=== PATIENT | female | born 1965 | race Caucasian/White ===

== ENCOUNTER 2021-06-21 07:10 | Emergency (ER) | payer OTHER, SELFPAY ==
[2021-06-21 07:19] VITALS: BP 153/102; PULSE 96; RESP 17; TEMP 38.2; O2SAT 98; BMI 31.9
--- NOTE | 2021-06-21 07:28 | CT_ITS ---
FINAL REPORT CLINICAL HISTORY: r/o kidney stone left flank pain FINDINGS: Axial CT images of the abdomen and pelvis were obtained without intravenous contrast. Coronal reformatted images were also obtained.This study was performed with techniques to keep radiation doses as low as reasonably achievable (ALARA). Individualized dose reduction techniques using automated exposure control or adjustment of mA and/or kV according to the patient's size were employed. Abdomen: The lung bases are clear. There is fatty infiltration of the liver. There are multiple bilateral nonobstructing renal stones. The largest on the left measures 8 mm. There is no right hydronephrosis. There is mild left hydronephrosis secondary to a 10 mm left UPJ stone. There is a 30 mm low-attenuation mass in the lateral left kidney which cannot be accurately characterized without contrast. Remaining solid organs are unremarkable. Pelvis: There multiple phleboliths in the abdomen and pelvis. The appendix is normal. There is no free fluid or adenopathy. IMPRESSION: Left hydronephrosis secondary to a 10 mm left UPJ stone. Multiple bilateral nonobstructing renal stones. 30 mm low-attenuation mass in the lateral left kidney. Renal mass protocol CT or MRI may be beneficial for further evaluation. Fatty liver. Reviewed, Interpreted and Dictated by Heath Noguera III, MD Transcribed by Christie Samuel Authenticated by Heath Noguera III, MD on 06/21/2021 08:10:41 AM [facility]
[2021-06-21 07:36] LABS: Microscopic, Urine URINE MICROSCOPIC (MICROSCOPIC)
[2021-06-21 07:40] LABS: Basophils # 0.1 K/mm3 (0-0.2); Basophils % 1.4 % (0.1-2.0); Eosinophils # 0.1 K/mm3 (0.0-0.4); Eosinophils % 0.9 % (0.1-12.0); Hematocrit 41.4 % (37.0-47.0); Hemoglobin 13.5 g/dL (12.2-16.2); Lymphocytes % 10.6 % (10-50); Mean Corpuscular HGB Conc 32.7 g/dL (31.8-35.4); Mean Corpuscular Hemoglobin 29.6 pg (27.0-31.2); Mean Corpuscular Volume 90.5 fl (81-99); Mean Platelet Volume 7.7 fl (7.4-10.4); Monocytes # 0.6 K/mm3 (0.1-1.0); Monocytes % 5.9 % (1.7-9.3); Neutrophils # 7.8 K/mm3 (1.8-7.8); Neutrophils % 81.1 % (37.0-80.0); Platelet Count 475 K/mm3 (142-424); Red Blood Count 4.58 M/mm3 (4.20-5.40); Red Cell Distribution Width 13.2 % (11.5-17.5); White Blood Count 9.6 K/mm3 (4.8-10.8)
--- NOTE | 2021-06-21 07:41 | PC.NURSE ---
patient to radiology with security tech by wheelchair
[2021-06-21 07:44] LABS: Appearance,Urine CLEAR (Clear); Bilirubin,Urine Negative (Negative); Blood, Urine 2+ (Negative); Color,Urine YELLOW (Yellow); Glucose,Urine (UA) Negative (Negative); Ketones,Urine Negative (Negative); Leukocyte Esterase,Urine 2+ (Negative); Nitrate,Urine Negative (Negative); PH,Urine 5.5 (5.0-8.5); Protein,Urine 2+ (Negative); Specific Gravity, Urine 1.025 (1.005-1.030); Urobilinogen,Urine 0.2 EU/dl (0.2)
[2021-06-21 07:50] LABS: Chloride 103 mmol/L (98-107); Potassium 4.1 mmoL/L (3.5-5.1); Sodium 135 mmol/L (136-145)
[2021-06-21 07:52] LABS: Alanine Aminotransferase 38 U/L (12-78); Alkaline Phosphatase 95 U/L (38-126); Aspartate Amino Transferase 31 U/L (14-36); Bilirubin,Total 0.6 mg/dl (0.2-1.3); Blood Urea Nitrogen 15 mg/dl (7-17); Creatinine Clearance Estimated 82 mL/min (50-200); Estimated Glomerular Filt Rate 52 ml/min (>60); GFR (African American) 62 ML/MIN (>60); Lipase 94 U/L (23-300)
[2021-06-21 07:53] LABS: Albumin/Globulin Ratio 1.1 (1.1-1.8); Anion Gap 10.1 mEq/L (5-15); Calcium 8.6 mg/dl (8.4-10.2); Carbon Dioxide 26 mmol/L (22.0-30.0); Globulin 3.5 g/dL (1.3-3.2); Glucose 147 mg/dl (74-100); Total Protein,Serum 7.5 g/dl (6.3-8.2)
[2021-06-21 07:57] LABS: Bacteria,Urine 1+ /lpf
--- NOTE | 2021-06-21 08:00 | HMH.EDGENADL ---
ED Disposition Clinical Impression: Left ureteral calculus, Pyelonephritis, Left renal mass Disposition: Xfer Other Condition on Discharge: Fair Referrals: Provider,Referral, [Primary Care Provider] - Forms: Transfer Record - ED - Critical Care Critical Care Time: No Attestation: On , the high probability of a clinically significant, sudden or life threatening deterioration of the following system(s) required my full and direct attention, intervention and personal management. The time I documented below is in addition to time spent performing reported procedures but includes the following listed in this critical care notation. Medical Decision Making - Jc Inquiry Pt receiving controlled substance: Yes Jc was queried for this patient: Yes Risks and benefits of using a controlled substance: were not discussed with pt by me Vital Signs: 06/21/21 07:19 06/21/21 11:07 Temperature 100.7 F H 100.4 F H Temperature Source Oral Oral Pulse Rate 84 Pulse Rate [Left Radial] 96 H Respiratory Rate 17 17 Blood Pressure 146/80 H Blood Pressure [Right Arm] 153/102 H Blood Pressure Mean [Right Arm] 119 02 Sat by Pulse Oximetry 98 Oxygen Delivery Method Room Air Room Air - Lab Data Lab Results 06/21/21 07:22: WBC 9.6, RBC 4.58, Hgb 13.5, Hct 41.4, MCV 90.5, MCH 29.6, MCHC 32.7, RDW 13.2, Plt Count 475 H, MPV 7.7, Neut % (Auto) 81.1 H, Lymph % (Auto) 10.6, Garrett % (Auto) 5.9, Eos % (Auto) 0.9, Baso % (Auto) 1.4, Neut # (Auto) 7.8, Lymph # (Auto) 1.0, Garrett # (Auto) 0.6, Eos # (Auto) 0.1, Baso # (Auto) 0.1 06/21/21 07:22: Sodium 135 L, Potassium 4.1, Chloride 103, Carbon Dioxide 26, Anion Gap 10.1, BUN 15, Creatinine 1.10 H, Estimated Creat Clear 82, Estimated GFR 52 L, Est GFR ( Amer) 62, Glucose 147 H, Calcium 8.6, Total Bilirubin 0.6, AST 31, ALT 38, Alkaline Phosphatase 95, Total Protein 7.5, Albumin 4.0, Globulin 3.5 H, Albumin/Globulin Ratio 1.1, Lipase 94 06/21/21 07:35: Urine Color Yellow, Urine Appearance Clear, Urine pH 5.5, Ur Specific Errol 1.025, Urine Protein 2+, Urine Glucose (UA) Negative, Urine Ketones Negative, Urine Blood 2+, Urine Nitrate Negative, Urine Bilirubin Negative, Urine Urobilinogen 0.2, Ur Leukocyte Esterase 2+ A, Urine RBC 5-10, Urine WBC 5-10, Ur Squamous Epith Cells 3-5, Urine Bacteria 1+ 06/21/21 08:19: Lactate 0.9 06/21/21 09:01: SARS-CoV-2 (PCR) Not detected, Influenza A Untype (PCR) Not detected, Influenza Type B (PCR) Not detected Result diagrams: 06/21/21 07:22 06/21/21 07:22 Orders (Tests/Meds): ED MEDICATIONS Discontinued Medications Generic Name Dose Route Start Last Admin Trade Name Freq PRN Reason Stop Dose Admin Lactated Ringer's 1,000 mls @ 999 mls/hr 06/21/21 07:30 06/21/21 07:34 Lactated Ringer's 1000 Ml Bag IV 06/21/21 08:30 999 mls/hr .Q1H1M WALTER Administration Ceftriaxone Sodium 1 gm/ 50 mls @ 100 mls/hr 06/21/21 08:15 06/21/21 08:22 Sodium Chloride IV 07/05/21 08:14 100 mls/hr Q24H WALTER Administration Ketorolac Tromethamine 30 mg 06/21/21 08:25 06/21/21 08:40 Ketorolac 30mg/Ml Vial IV 06/21/21 08:26 30 mg ONCE ONE Administration Morphine Sulfate 4 mg 06/21/21 08:25 06/21/21 08:40 Morphine 4mg/Ml Syringe IV 06/21/21 08:26 4 mg ONCE ONE Administration Ondansetron HCl 4 mg 06/21/21 07:28 06/21/21 07:34 Ondansetron 4mg/2ml Vial IV 06/21/21 07:29 4 mg ONCE ONE Administration Sodium Chloride 10 ml 06/21/21 07:28 Sodium Chloride 0.9% 10ml Flush Syringe IV 07/21/21 07:27 NEEDED PRN Maintain IV Site ORDERS Category Date Time Status Blood Culture Stat Micro 06/21/21 08:19 Received Urine Culture Stat Micro 06/21/21 07:35 Received - CT Data CT Scan: Abdomen, Pelvis Time Received: 08:[address] Reviewed: Yes: I have viewed the radiologist's interpretation Findings Narrative: Procedure(s): CT abdomen pelvis wo con Accession Number(s): [id number] cc: Ga
--- NOTE | 2021-06-21 08:05 | PC.NURSE ---
JOANA GALICIA at
--- NOTE | 2021-06-21 08:19 | PC.NURSE ---
Contacting Dr. Rosa for ED MD
--- NOTE | 2021-06-21 08:32 | PC.NURSE ---
Contacted [facility] for ED MD; awaiting call back
[2021-06-21 08:47] LABS: Lactic Acid 0.9 mmol/L (0.7-2.1)
--- NOTE | 2021-06-21 08:48 | PC.NURSE ---
Katelyn with [facility] called back and states that Dr. Heath Stern is on for Urology today and to have ED MD call his line directly.
[2021-06-21 09:05] LABS: Coronavirus 19, PCR Not Detected (NotDetected); Influenza A, PCR Not Detected (NotDetected); Influenza B, PCR Not Detected (NotDetected)
--- NOTE | 2021-06-21 09:24 | PC.NURSE ---
Contacted Dr. Stern's office with [facility] urology @ [phone] and they took a message for Dr. Stern to call us back. Dr. Augustine updated
--- NOTE | 2021-06-21 09:52 | PC.NURSE ---
JOANA GALICIA speaking with Dr. Heath Stern (urology) from [facility]
--- NOTE | 2021-06-21 09:56 | PC.NURSE ---
Contacted [facility] and spoke with Katelyn, letting her know we need a hospitalist to admit patient to [facility]
--- NOTE | 2021-06-21 10:05 | PC.NURSE ---
Dr. Augustine speaking with Dr. Serrano, hospitalists at [place]
--- NOTE | 2021-06-21 10:08 | PC.NURSE ---
pt accepted to per dr. zhao, access center requested a face sheet be faxed and states they will work on bed placement for pt.
--- NOTE | 2021-06-21 10:25 | PC.NURSE ---
Faxed facesheet over to [facility]
--- NOTE | 2021-06-21 10:43 | PC.NURSE ---
[facility] called with bed assignment for pt. Pt is going to outpt surgery at [facility] main number for report [phone]
[2021-06-21 11:07] VITALS: BP 146/80; PULSE 84; RESP 17; TEMP 38; O2SAT 97
== END 2021-06-21 11:10 | disposition other institution (70) ==
PROVIDERS: Emergency Medicine; Emergency Provider Emergency Medicine
DX: N20.1 Calculus of ureter (principal); N28.89 Other specified disorders of kidney and ureter
CPT/HCPCS: 74176; 80053; 81001; 83605; 83690; 85025; 87040; 87086; 96365; 96375; 99284; C9803; J0696; J2405; U0003; U0005

== ENCOUNTER 2021-09-09 07:31 | Emergency (ER) | payer OTHER, SELFPAY ==
[2021-09-09 07:34] VITALS: BP 155/95; PULSE 65; RESP 18; TEMP 36.8; O2SAT 97; BMI 32.3
--- NOTE | 2021-09-09 08:06 | HMH.EDSKAF ---
ED Disposition Clinical Impression: Cellulitis Qualifiers: Site of cellulitis: face Qualified Code(s): L03.211 - Cellulitis of face Disposition: Home, Self-Care Condition on Discharge: Good Instructions: Cellulitis Additional Instructions: take antibiotic as prescribed. If no improvement in 48 hours, follow up in the ED or with your primary physician. Referrals: Provider,Referral, [Primary Care Provider] - - Critical Care Critical Care Time: No Attestation: On 09/09/21, the high probability of a clinically significant, sudden or life threatening deterioration of the following system(s) required my full and direct attention, intervention and personal management. The time I documented below is in addition to time spent performing reported procedures but includes the following listed in this critical care notation. Medical Decision Making - Medical Records Medical records reviewed: Yes: I reviewed the patient's medical records. - Jc Inquiry Pt receiving controlled substance: No Vital Signs: 09/09/21 07:34 Temperature 98.2 F Temperature Source Oral Pulse Rate [Right Radial] 65 Respiratory Rate 18 Blood Pressure [Right Arm] 155/95 H Blood Pressure Mean [Right Arm] 115 Blood Pressure Source [Right Arm] Automatic Cuff Blood Pressure Position [Right Arm] Sitting 02 Sat by Pulse Oximetry 97 Oxygen Delivery Method Room Air Skin/Abscess/FB HPI - General Chief complaint: Skin/Abscess/Foreign Body Stated complaint: HUGE SPOT ON LEFT SIDE OF CHEEK-PAINFUL AND HARD Time Seen by Provider: 09/09/21 08:12 Mode of Arrival: Ambulatory Limitations: No Limitations Description of Symptoms (Recalled from ER Triage Doc. by RN): PT stated that as of last saturday she woke up with this red spot on her face. She stated that yesterday she started to feel a shooting pain from the spot located on her left cheek. It travels from the spot down her jaw, and up to her head. She was seen by her holistic doctor and was using purifying oils, and drawing sap. This has not helped her at all. - History of Present Illness HPI narrative: 56 yo/F, no signifcant related PMH, presents with erythematous, indurated lesion left face for ~1week. No fever, chills, N/V or other systemic symptoms. States saw her naturopathic doctor, has used various oils and topical treamtents with no improvement. Does report pain left face radiating down to jaw with pain with chewing. - Related Data Previous Rx's Medication Instructions Recorded cephALEXin [Cephalexin 500mg Tab] 500 mg PO Q6H 7 Days #28 tab 09/09/21 Allergies Allergy/AdvReac Type Severity Reaction Status Date / Time No Known Allergies Allergy Verified 06/21/21 07:27 [facility] History - Hepatitis A Screen Attestation statement:: This patient has been screened for Hepatitis A risk factors. ROS Obtained: Yes All systems reviewed & no additional complaints - Constitutional Constitutional: Reports system reviewed and no additional complaints, except as docu - Eyes Eyes: Reports system reviewed and no additional complaints, except as docu - ENT Ears, Nose, Mouth, and Throat: Denies difficulty swallowing, Denies vertigo/dizziness Comments: left facial pain, worse with chewing - Cardiovascular Cardiovascular: Reports system reviewed and no additional complaints, except as docu - Respiratory Respiratory: Reports system reviewed and no additional complaints, except as docu - Musculoskeletal Musculoskeletal: Reports system reviewed and no additional complaints, except as docu - Integumentary/Breasts Comments: lesion, left face Physical Exam - General General appearance: alert, in no apparent distress - Head Head exam: atraumatic, normocephalic, normal inspection - Eye Eye exam: Present: normal appearance, PERRL, EOMI - ENT ENT exam: Present: normal exam, normal oropharynx, mucous membranes moist, TM's normal bilaterally, normal certified medical biller
--- NOTE | 2021-09-09 08:08 | PC.NURSE ---
JOANA GALICIA at speaking with patient
[2021-09-09 08:27] VITALS: BP 155/95; PULSE 65; RESP 18; TEMP 36.8; O2SAT 97
== END 2021-09-09 08:27 | disposition home or self-care (01) ==
PROVIDERS: Emergency Provider Emergency Medicine
DX: L03.211 Cellulitis of face (principal); G50.1 Atypical facial pain; L53.9 Erythematous condition, unspecified; L98.8 Other specified disorders of the skin and subcutaneous tissue; R68.84 Jaw pain
CPT/HCPCS: 99282

== ENCOUNTER 2022-01-01 11:13 | Emergency (ER) | payer OTHER, SELFPAY ==
--- NOTE | 2022-01-01 12:13 | EXP.UTC ---
Discharge Plan Disposition Patient Disposition: Home, Self-Care Condition: Good Prescriptions Prescriptions: New cefdinir 300 mg capsule 300 mg PO BID 10 Days Qty: 20 0RF Discontinued cephalexin 500 MG tablet 500 mg PO Q6H 7 Days Qty: 28 0RF Referrals Follow up/Referrals: Alex Caruso MD [Primary Care Provider] - See instructions Arden Moss MD [Staff Physician] - See instructions (renal mass incidental/ pyelonephritis) Clinical Impressions Clinical Impression: Pyelonephritis Instructions Patient Instructions: DI for Urinary Tract Infection (UTI) Discharge ED Provider: Andrew Jacinto [facility] General Chief complaint: Urogenital-Female Stated complaint: right side and back pain Time Seen by Provider: 01/01/22 12:13 History of Present Illness Provider Complaint: Assumed care from the urgent treatment center for a lady with left flank pain with a history of renal lithiasis. States that she has been hurting off and on but mildly over the left flank and left lower back for approximately 1 week significantly worsened yesterday consistent with her previous renal stones. States that pain is currently 5 out of 10 she has had urinary frequency and denies fevers chills or body aches no nausea or vomiting. Related Data Previous Rx's Medication Instructions Recorded cefdinir 300 mg capsule 300 mg PO BID 10 days #20 caps 01/01/22 Allergies Allergy/AdvReac Type Severity Reaction Status Date / Time No Known Allergies Allergy Verified 06/21/21 07:27 [facility] Medical History No significant past medical history Family History Other No significant family history Social History Smoking Status: Never smoker alcohol intake: never current occupational status: employed Travel in the last 8 weeks: None ROS Obtained: Yes Systems reviewed as appropriate & no additional complaints except as documented Physical Exam General General appearance: alert and in no apparent distress Head Head exam: atraumatic and normocephalic ENT ENT exam: Present mucous membranes moist Respiratory Respiratory exam: Absent respiratory distress Cardiovascular Cardiovascular exam: Present regular rate Abdominal Exam Abdominal exam: Present soft; Absent distention or tenderness Neurological Exam Neurological exam: Present alert and oriented X3 Medical Decision Making Medical Records Medical records reviewed: Yes I reviewed the patient's medical records. Jc Inquiry Pt receiving controlled substance: No Lab Data Lab results reviewed: Yes I reviewed the patient's lab results. Result diagrams: 01/01/22 12:50 01/01/22 12:[address] Scan: Abdomen Time Received: 14:[address] Reviewed: Yes I have viewed the radiologist's interpretation Preliminary Findings: Normal/NAD Findings Narrative: No urinary obstruction/ likely renal cysts. US Data ED US Reviewed: Yes I have viewed radiologist's interpretation Medical Decision Narrative: 36-year-old female was initially evaluated in the urgent treatment center sent over for flank pain consistent with her previous renal stones. Gradually worsening pain over several days she is having urinary frequency but otherwise is well-appearing and nontoxic. CT scan without contrast demonstrates no evidence of obstructive uropathy with stones only intrarenal. Urinalysis is positive for urinary tract infection will treat for pyelonephritis with cefdinir and discharged in good condition.
[2022-01-01 12:15] VITALS: BP 182/105; PULSE 64; RESP 20; TEMP 37.1; O2SAT 98; BMI 33.4
[2022-01-01 12:38] VITALS: BP 164/88; PULSE 78; RESP 18; TEMP 36.6; O2SAT 99; BMI 33.4
--- NOTE | 2022-01-01 12:38 | PC.NURSE ---
PATIENT SENT TO ER PER Leah PINO APRN FOR FURTHER EVALUATION. REPORT GIVEN TO Jess MERCHANT RN
--- NOTE | 2022-01-01 12:40 | CT_ITS ---
FINAL REPORT CLINICAL HISTORY: flank pain COMPARISON: 06/21/2021 FINDINGS: Axial CT images of the abdomen and pelvis were obtained without intravenous contrast. Coronal reformatted images were also obtained.This study was performed with techniques to keep radiation doses as low as reasonably achievable (ALARA). Individualized dose reduction techniques using automated exposure control or adjustment of mA and/or kV according to the patient's size were employed. Abdomen: The lung bases are clear. There are several bilateral nonobstructing renal stones with the largest in the lower pole of the left kidney measuring about 5 mm. There is no significant hydronephrosis. There are two stable low-attenuation masses in the left kidney including a 31 mm and a mass inferior to this measuring about 24 mm. They cannot be accurately characterized without contrast but could represent cysts. The liver is fatty infiltrated. The spleen and pancreas have an unremarkable, unenhanced appearance. Pelvis: The appendix is normal. There are multiple phleboliths in the pelvis. There is a moderate amount of retained stool. There is no evidence of ureteral dilation or ureteral stone. IMPRESSION: Several bilateral nonobstructing renal stones. No ureteral stone identified. Stable left renal masses. Reviewed, Interpreted and Dictated by Heath Noguera III, MD Transcribed by Jayashree De Dios Authenticated and [facility]
[2022-01-01 12:41] LABS: Apearance,Urine Cloudy (Clear); Blood, Urine Trace (Negative); Color,Urine Dark Yellow (Yellow); Glucose,Urine (UA) Negative (Negative); Ketones,Urine Negative (Negative); PH,Urine 5.5 (5.0-8.5); Protein,Urine Negative (Negative); Specific Gravity, Urine >= 1.030 (1.005-1.030)
[2022-01-01 12:42] LABS: Bilirubin,Urine Negative (Negative); UTC Leukocyte Esterase,Urine 1+ (Negative); UTC Nitrate,Urine Negative (Negative); Urobilinogen,Urine 0.2 EU/dl (0.2)
[2022-01-01 13:00] VITALS: BP 169/96; PULSE 60; O2SAT 97
[2022-01-01 13:00] LABS: Basophils # 0.1 K/mm3 (0-0.2); Basophils % 2.1 % (0.1-2.0); Eosinophils # 0.2 K/mm3 (0.0-0.4); Hematocrit 46.8 % (37.0-47.0); Hemoglobin 15.5 g/dL (12.2-16.2); Lymphocytes # 2.4 K/mm3 (0.7-4.5); Lymphocytes % 37.7 % (10-50); Mean Corpuscular HGB Conc 33.2 g/dL (31.8-35.4); Mean Corpuscular Hemoglobin 29.8 pg (27.0-31.2); Mean Corpuscular Volume 89.8 fl (81-99); Mean Platelet Volume 7.2 fl (7.4-10.4); Monocytes # 0.3 K/mm3 (0.1-1.0); Monocytes % 4.1 % (1.7-9.3); Neutrophils # 3.4 K/mm3 (1.8-7.8); Neutrophils % 53.1 % (37.0-80.0); Platelet Count 332 K/mm3 (142-424); Red Blood Count 5.21 M/mm3 (4.20-5.40); Red Cell Distribution Width 13.3 % (11.5-17.5); White Blood Count 6.5 K/mm3 (4.8-10.8)
[2022-01-01 13:06] LABS: Alanine Aminotransferase 65 U/L (12-78); Albumin Level 4.4 g/dl (3.5-5.0); Albumin/Globulin Ratio 1.5 (1.1-1.8); Alkaline Phosphatase 119 U/L (38-126); Anion Gap 15.3 mEq/L (5-15); Aspartate Amino Transferase 44 U/L (14-36); Bilirubin,Total 0.3 mg/dl (0.2-1.3); Blood Urea Nitrogen 23 mg/dl (7-17); Calcium 9.5 mg/dl (8.4-10.2); Carbon Dioxide 26 mmol/L (22.0-30.0); Chloride 104 mmol/L (98-107); Creatinine Clearance Estimated 135 mL/min (50-200); Estimated Glomerular Filt Rate 87 ml/min (>60); GFR (African American) 105 ML/MIN (>60); Globulin 2.9 g/dL (1.3-3.2); Glucose 115 mg/dl (74-100); Lipase 199 U/L (23-300); Potassium 4.3 mmoL/L (3.5-5.1); Sodium 141 mmol/L (136-145); Total Protein,Serum 7.3 g/dl (6.3-8.2)
[2022-01-01 13:22] LABS: Microscopic, Urine URINE MICROSCOPIC (MICROSCOPIC)
[2022-01-01 13:28] LABS: Appearance,Urine CLEAR (Clear); Bilirubin,Urine Negative (Negative); Blood, Urine Negative (Negative); Color,Urine YELLOW (Yellow); Glucose,Urine (UA) Negative (Negative); Ketones,Urine Negative (Negative); Leukocyte Esterase,Urine TRACE (Negative); Nitrate,Urine Negative (Negative); Protein,Urine Negative (Negative); Specific Gravity, Urine >= 1.030 (1.005-1.030); Urobilinogen,Urine 0.2 EU/dl (0.2)
--- NOTE | 2022-01-01 13:29 | PC.NURSE ---
ED MD AT BEDSIDE FOR EVALUATION
[2022-01-01 13:38] LABS: Urine Pregnancy, HCG Qual. Negative (Negative)
[2022-01-01 13:40] LABS: Bacteria,Urine Trace /lpf; Squamous Epithelial Cell,Urine Occasional #/hpf (0-5)
--- NOTE | 2022-01-01 14:34 | PC.NURSE ---
MD AT BEDSIDE TO UPDATE PT ON POC
[2022-01-01 15:00] VITALS: BP 165/90; PULSE 68; RESP 17; TEMP 36.7; O2SAT 98
== END 2022-01-01 15:00 | disposition home or self-care (01) ==
LOC: UTC 11:19 → ER 12:36
PROVIDERS: Nurse Practitioner Family; Emergency Provider Student in an Organized Health Care Education/Training Program; PCP Emergency Medicine
DX: N12 Tubulo-interstitial nephritis, not specified as acute or chronic (principal); M54.50 Low back pain, unspecified; Z79.899 Other long term (current) drug therapy
CPT/HCPCS: 74176; 80053; 81001; 81003; 81025; 83690; 85025; 87086; 87088; 87186; 96374; 99285

== ENCOUNTER → 2022-05-15 23:35 | Outpatient (CLI) | payer OTHER, SELFPAY | PROVIDERS: PCP Emergency Medicine; Visit Provider Nurse Practitioner Family | DX: B35.1 Tinea unguium (principal); L57.0 Actinic keratosis; L60.0 Ingrowing nail | CPT/HCPCS: 87102; 87206; 87220 ==

== ENCOUNTER → 2022-06-14 14:08 | Outpatient (CLI) | payer OTHER, SELFPAY ==
--- NOTE | 2022-06-14 14:09 | US_ITS ---
FINAL REPORT CLINICAL HISTORY: decreased sensation, previous smoker, bilateral weak pulses, evaluation prior to ingrown toenail removal. FINDINGS: ANKLE-BRACHIAL PRESSURE INDICES Pressure indices are as follows: RIGHT LOWER EXTREMITY: Ankle-brachial pressure index: 1.1 Comments: Normal LEFT LOWER EXTREMITY: Ankle-brachial pressure index: 1.1 Comments: Normal CONCLUSION: No evidence of significant obstructive peripheral vascular disease of the lower extremities Reviewed, Interpreted and Dictated by Heath Noguera III, MD Transcribed by Jayashree De Dios Authenticated and [facility] [place] [place]
== END ==
PROVIDERS: PCP Emergency Medicine; Visit Provider Nurse Practitioner Family
DX: R09.89 Other specified symptoms and signs involving the circulatory and respiratory systems (principal)
CPT/HCPCS: 93923

== ENCOUNTER → 2022-09-18 11:52 | Outpatient (CLI) | payer OTHER, SELFPAY ==
--- NOTE | 2022-09-18 11:52 | US_ITS ---
PROCEDURE: US TRANSVAGINAL CLINICAL INDICATION: post menopausal bleeding COMPARISON: No exams were available for comparison FINDINGS: Transvaginal sonographic images of the pelvis were obtained. UTERUS: 11cm x 8cmx 6cm with a combined endometrial thickness of 18.8mm. At the fundus of the uterus the endometrium is grossly thickened up to 26 millimeters. The uterus is enlarged. A Caesarean section scar is visualized. There are several small nabothian cysts in the cervix. LEFT OVARY: 6ryg5grq5.2cm with a volume of 1.8ml.Appears atrophic. RIGHT OVARY: 2cmx [id number] with a volume of 0.9ml. Appears atrophic. Both ovaries are seen and appear normal. Doppler flow to both ovaries are seen. There is no fluid in the cul-de-sac. IMPRESSION: 1. Bulky anteverted uterus. 2. The endometrium is markedly thickened. The endometrium is 18.8 mm but is seen up to 26 mm deep at the fundus. Suggest endometrial sampling. 3. Both ovaries are seen and appear atrophic. Dictated by: Jorge Alberto Burr MD 09/18/2022 18:40 Jorge Alberto Burr MD in OV 09/18/2022 18:40
== END ==
PROVIDERS: PCP Emergency Medicine; Visit Provider Obstetrics & Gynecology
DX: N95.0 Postmenopausal bleeding (principal)
CPT/HCPCS: 76830

== ENCOUNTER → 2022-11-12 09:51 | Outpatient (CLI) | payer OTHER, SELFPAY ==
[2022-11-12 10:24] LABS: Basophils # 0.1 K/mm3 (0-0.2); Basophils % 0.9 % (0.1-2.0); Eosinophils # 0.2 K/mm3 (0.0-0.4); Eosinophils % 1.7 % (0.1-12.0); Hematocrit 52.7 % (37.0-47.0); Lymphocytes % 32.2 % (10-50); Mean Corpuscular HGB Conc 32.3 g/dL (31.8-35.4); Mean Corpuscular Hemoglobin 29.4 pg (27.0-31.2); Mean Corpuscular Volume 90.9 fl (81-99); Mean Platelet Volume 7.7 fl (7.4-10.4); Monocytes # 0.7 K/mm3 (0.1-1.0); Neutrophils # 5.5 K/mm3 (1.8-7.8); Neutrophils % 58.2 % (37.0-80.0); Platelet Count 441 K/mm3 (142-424); Red Cell Distribution Width 13.1 % (11.5-17.5); White Blood Count 9.4 K/mm3 (4.8-10.8)
[2022-11-12 10:45] LABS: Alanine Aminotransferase 31 U/L (12-78); Albumin Level 4.9 g/dl (3.5-5.0); Albumin/Globulin Ratio 1.4 (1.1-1.8); Alkaline Phosphatase 98 U/L (38-126); Anion Gap 19.1 mEq/L (5-15); Aspartate Amino Transferase 28 U/L (14-36); Bilirubin,Total 0.6 mg/dl (0.2-1.3); Blood Urea Nitrogen 21 mg/dl (7-17); Calcium 9.8 mg/dl (8.4-10.2); Carbon Dioxide 21 mmol/L (22.0-30.0); Chloride 103 mmol/L (98-107); Estimated Glomerular Filt Rate 51 ml/min (>60); GFR (African American) 62 ML/MIN (>60); Globulin 3.4 g/dL (1.3-3.2); Glucose 124 mg/dl (74-100); Potassium 4.1 mmoL/L (3.5-5.1); Sodium 139 mmol/L (136-145); Total Protein,Serum 8.3 g/dl (6.3-8.2)
[2022-11-12 11:04] LABS: HCG,Quantitative < 2 mIU/ml (0-5.42)
== END ==
PROVIDERS: PCP Emergency Medicine; Visit Provider Obstetrics & Gynecology
DX: R93.89 Abnormal findings on diagnostic imaging of other specified body structures (principal); Z01.812 Encounter for preprocedural laboratory examination
CPT/HCPCS: 36415; 80053; 84702; 85025

== ENCOUNTER 2022-11-20 06:02 | Day surgery (SDC) | payer OTHER, SELFPAY ==
[2022-11-16 11:41] VITALS: BMI 31.8
[2022-11-20] VITALS (11 sets, daily range): BP systolic 104–136; BP diastolic 53–92; PULSE 68–88; RESP 12–83; TEMP 36.1–43; O2SAT 94–99
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
--- NOTE | 2022-11-20 08:55 | EXP.OP.NOTE ---
Date of procedure: 11/20/22 Pre-op Diagnosis:: 1. Post menopausal bleeding 2. Thickened endometrium Post-op Diagnosis:: 1. Post menopausal bleeding 2. Thickened endometrium Procedure performed:: Hysteroscopy, dilation and curettage with Myosure Surgeon:: Alena Jaramillo DO Solder Sprayer(s):: N/a MECHANICAL APPLICATIONS ENGINEER:: Charley Caba Anesthesia: GETA Estimated blood loss (mL): 5 Clinical Note:: Ms Venecia Caruso is a very pleasant 57 yo female who presents to [facility] for scheduled procedure. She reports postmenopausal bleeding. Last period was 2 years ago. She was taking HRT for vasomotor symptoms and mood changes. Howver, she stopped HRT secondary to postmenopausal bleeding. Around 09/11 she started bleeding heavy, like a period. Bleeding lasted about 1 week. Pelvic ultrasound 09/18/22 demonstrated bulky anteverted uterus, endometrium markedly thickened - 18.8 mm but is seen up to 26 mm deep at the fundus. Both ovaries are seen and appear atrophic. Operative findings:: 1. On bimanual exam, uterus normal size and shape, midline, anteverted. No adnexal masses palpated 2. On hysteroscopic exam, large mass within the uterine cavity noted. Bilateral tubal ostia easily visualized around the mass. Remainder of endometrium appeared normal, atrophic Operative note:: Risks, benefits and alternatives were discussed with the patient. Risks include but are not limited to bleeding, infection, uterine perforation and VTE. Patient voiced understanding and agreed to proceed. She was wheeled back to the operating room and placed under MAC without difficulty. She was placed in dorsal lithotomy position and prepped and draped in the normal sterile fashion. Straight catheter was used to drain the bladder. A bimanual exam was performed. A weighted Auvard was placed in the vaginal vault. Single tooth tenaculum was placed on anterior lip of the cervix. Uterus sounded to 9. Sequential Magdaleno dilators were used to dilate the cervical os. Hysteroscope was tested inserted through the cervix without difficulty. Endometrial cavity was evaluated. See findings above. Pictures were taken. Myosure was inserted through the Hysteroscope. Myosure curettage was performed under direct visualization per protoco to remove endometrial mass. The endometrial cavity was curetted with a systematic [id number] movement of the curette so that all possible endometrium was sampled. Endometrial curettings will be sent to pathology for review.?In addition, a medium size sharp curette was inserted through the cervix into the uterine cavity and endometrium was curetted with a systematic back and forth movement in a 360 degree manner. All endometrial curettings will be sent to pathology for review. Instruments were removed from the vagina. Tenaculum site was noted to to be hemostatic. Patient was awaken from anesthesia without difficulty. She was transported to recovery room in stable condition. Patient will be discharged home when awake and ambulating. She was given postop instructions as well as instructions to follow-up in the office in 2 weeks at which time pathology will be reviewed. Condition: stable Disposition: same day Specimens:: 1. Endometrial mass 2. Endometrial curettings Complications:: None
--- NOTE | 2022-11-20 08:59 | EXP.ANES.I ---
[facility] Anesthesia Record Part I Anesthesia Record I Intake, IV Amount: 900 Hydration: Adequate Estimated blood loss (mL): 5 Urine output (mL): 0 Blood Pressure: 124/77 SaO2: 94 Pulse Rate: 72 Airway Patency: Patent Respiratory Rate: 12 Temperature: 98.5 F Patient is:: Drowsy and Oral/Nasal airway Stable to PACU at:: 08:55
--- NOTE | 2022-11-20 10:50 | EXP.ANES.II ---
[facility] Anesthesia Record Part II Anesthesia Record Part II Discharge Time: 09:25 Destination: Surgical Day Care (OP Surgery) PACU nurse assessment reviewed?: Yes Patient Condition:: Good Anesthesia Complications:: None Swallowing reflex intact?: Yes Airway Patency: Patent Cyanosis?: No Blood Pressure: 108/62 SaO2: 98 Respiratory Rate: 13 Pulse Rate: 88 Temperature: 97 F Mental Status: Alert & Oriented Pain level:: 0 Nausea and/or vomitting:: None Intake, IV Amount: 0 Hydration: Adequate
== END 2022-11-20 10:32 | disposition home or self-care (01) ==
PROVIDERS: PCP Emergency Medicine; Visit Provider Obstetrics & Gynecology
PROC: (CPT 58558; principal; 2022-11-20 07:30)
DX: N84.0 Polyp of corpus uteri (principal); N95.0 Postmenopausal bleeding; Z79.890 Hormone replacement therapy; N85.4 Malposition of uterus
CPT/HCPCS: 58558; J2405

== ENCOUNTER 2023-01-05 09:21 | Emergency (ER) | payer OTHER, SELFPAY ==
[2023-01-05] VITALS (10 sets, daily range): BP systolic 126–149; BP diastolic 54–103; PULSE 79–101; RESP 17–20; TEMP 36.5–36.9; O2SAT 95–98; BMI 31.3
--- NOTE | 2023-01-05 09:55 | PC.NURSE ---
Dr. Harden at BS for pt eval
--- NOTE | 2023-01-05 09:58 | CT_ITS ---
PROCEDURE INFORMATION: Exam: CT Abdomen And Pelvis Without Contrast Exam date and time: 01/05/2023 10:17 AM Age: 57 years old Clinical indication: Other: Left flank pain; Additional info: Left flank pain. Prior HX kidney stones TECHNIQUE: Imaging protocol: Computed tomography of the abdomen and pelvis without contrast. Radiation optimization: All CT scans at this facility use at least one of these dose optimization techniques: automated exposure control; mA and/or kV adjustment per patient size (includes targeted exams where dose is matched to clinical indication); or iterative reconstruction. REPORTING DATA: Count of CT and Cardiac NM exams in prior 12 months: This patient has received 0 known CTs and 0 known cardiac nuclear medicine studies in the 12 months prior to the current study. COMPARISON: CT ABDOMEN PELVIS WO CON 01/01/2022 1:05 PM FINDINGS: Lungs: Lung bases are clear. Liver: See Soft tissues finding. Gallbladder and bile ducts: Normal. No calcified stones. No ductal dilation. Pancreas: Unremarkable. Main pancreatic duct is not significantly dilated. Spleen: Normal. No splenomegaly. Adrenal glands: Normal. No mass. Kidneys and ureters: There is a 5 mm obstructing calculus within the distal 3rd portion of the left ureter 7 cm above the ureterovesical junction resulting in mild left-sided hydronephrosis. There is some perinephric and periureteral fat stranding that has developed likely secondary to the acute obstruction. There are a few small nonobstructing right renal stones and a tiny nonobstructing left renal stone also noted. Two moderate size benign appearing cortical cysts left kidney, unchanged. Stomach and bowel: Unremarkable. No obstruction. No mucosal thickening. Appendix: No evidence of acute appendicitis. Intraperitoneal space: Unremarkable. No free air. No significant fluid collection. Vasculature: Unremarkable. No abdominal aortic aneurysm. Lymph nodes: Unremarkable. No enlarged lymph nodes. Urinary bladder: Unremarkable as visualized. Reproductive: Uterus is mildly enlarged, bulbous in contour appears increased in size from previous exam. Bones/joints: Unremarkable. No acute fracture. Soft tissues: Left breast implant partially visualized.Liver is mildly enlarged with diffuse fatty infiltration present. IMPRESSION: 1. 5 mm obstructing calculus left distal ureter resulting in mild hydronephrosis and evidence of acute of renal obstruction. 2. Additional nonobstructing stones both kidneys and stable left renal cyst. 3. A mild uterine enlargement increased in size. In view of patient's age would recommend follow-up nonemergent pelvic ultrasound for further assessment. 4. Mild hepatomegaly with fatty infiltration.
--- NOTE | 2023-01-05 09:59 | HMH.EDGENADL ---
Discharge Plan Disposition Patient Disposition: Home, Self-Care Chief Complaint: Abdominal Pain Prescriptions Prescriptions: No Action levothyroxine 50 mcg tablet 50 mcg PO DAILY Patient Comments: TAKE 1 TABLET BY MOUTH EVERY DAY IN THE MORNING ON EMPTY STOMACH trazodone 100 mg tablet 100 mg PO HS Patient Comments: TAKE 1 TABLET BY MOUTH TWICE A DAY Vraylar 3 mg capsule 3 mg PO DAILY Patient Comments: TAKE 1 CAPSULE BY MOUTH EVERY DAY phentermine 37.5 mg tablet 37.5 mg PO DAILY Patient Comments: TAKE 1 TABLET BY MOUTH EVERY DAY topiramate 25 mg capsule,sprinkle,ER 24hr 25 mg PO DAILY Patient Comments: TAKE 1 CAPSULE BY MOUTH EVERY DAY estradiol valerate [Delestrogen] 20 mg/mL oil 20 mg IM Q4W progesterone micronized 100 mg capsule 100 mg PO HS Qty: 30 11RF desvenlafaxine succinate [Pristiq] 50 mg tablet extended release 24 hr 50 mg PO DAILY ibuprofen 800 mg tablet 800 mg PO Q8H PRN (Reason: pain) Qty: 20 0RF Referrals Follow up/Referrals: Alex Caruso MD [Primary Care Provider] - See instructions Clinical Impressions Clinical Impression: Sepsis, Hydronephrosis with renal and ureteral calculous obstruction Instructions Patient Instructions: DI for Acute Abdominal Pain Discharge ED Provider: Idris Harden General Adult HPI General Chief complaint: Abdominal Pain Stated complaint: left side to back pain, vomiting Time Seen by Provider: 01/05/23 09:54 Mode of Arrival: Ambulatory Source of Information: Patient Limitations: No Limitations Description of Symptoms (Recalled from ER Triage Doc. by RN): pt states she has an aching pain in her L side that has been intermitent since Saturday, reports vomiting green bile since 6pm last night and ran a low grade fever last night as well, reports hx of kidney stones History of Present Illness HPI narrative: Patient is a 57-year-old presenting with left flank pain fever and nausea vomiting. Tmax was 100.7 yesterday. She has had 2 episodes of kidney stones in the past and states this feels similar. Both times in the past she has required a stent and lithotripsy. 2 years ago she states she had a 10 mm stone. 1 year ago she was septic and required transfer. She currently denies any significant pain no fever at the moment. States she otherwise feels good other than the vague left-sided flank discomfort and nausea vomiting. Related Data Home Medications Medication Instructions Recorded Confirmed cariprazine 3 mg capsule (Vraylar) 3 mg PO DAILY Depression 05/15/22 01/05/23 levothyroxine 50 mcg tablet 50 mcg PO DAILY hypothyr 05/15/22 01/05/23 trazodone 100 mg tablet 100 mg PO HS sleep 05/15/22 01/05/23 desvenlafaxine succinate 50 mg 50 mg PO DAILY * 11/16/22 01/05/23 tablet,extended release 24 hr (Pristiq) estradiol valerate 20 mg/mL 20 mg IM Q4W 12/13/22 01/05/23 intramuscular oil (Delestrogen) phentermine 37.5 mg tablet 37.5 mg PO DAILY 12/13/22 01/05/23 topiramate 25 mg capsule 25 mg PO DAILY 12/13/22 01/05/23 sprinkle,extended release 24 hr Previous Rx's Medication Instructions Recorded ibuprofen 800 mg tablet 800 mg PO Q8H PRN pain #20 tabs 11/20/22 progesterone micronized 100 mg 100 mg PO HS #30 caps 12/13/22 capsule Allergies Allergy/AdvReac Type Severity Reaction Status Date / Time No Known Allergies Allergy Verified 01/05/23 09:35 [facility] Disclaimer: The information contained in this section may have been updated after the patient was seen, as this information can be updated by other users. 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 because patient is Mu-ism Depression Kidney stones Major depressive disorder Postmenopausal bleeding Posttraumatic stress disorder Thickened endometrium Surgical History H/O lith
[2023-01-05 10:07] LABS: Basophils # 0.1 K/mm3 (0-0.2); Basophils % 0.2 % (0.1-2.0); Eosinophils # 0.1 K/mm3 (0.0-0.4); Eosinophils % 0.5 % (0.1-12.0); Hematocrit 43.9 % (37.0-47.0); Hemoglobin 15.4 g/dL (12.2-16.2); Lymphocytes # 1.8 K/mm3 (0.7-4.5); Lymphocytes % 8.4 % (10-50); Mean Corpuscular Hemoglobin 30.9 pg (27.0-31.2); Mean Corpuscular Volume 88.1 fl (81-99); Mean Platelet Volume 7.7 fl (7.4-10.4); Monocytes # 0.9 K/mm3 (0.1-1.0); Monocytes % 4.2 % (1.7-9.3); Neutrophils # 18.8 K/mm3 (1.8-7.8); Neutrophils % 86.7 % (37.0-80.0); Platelet Count 315 K/mm3 (142-424); Red Blood Count 4.98 M/mm3 (4.20-5.40); Red Cell Distribution Width 13.3 % (11.5-17.5); White Blood Count 21.7 K/mm3 (4.8-10.8)
[2023-01-05 10:10] LABS: MANUAL DIFFERENTIAL MANUAL DIFFERENTIAL (MANUAL DIFF)
[2023-01-05 10:11] LABS: Alanine Aminotransferase 41 U/L (12-78); Albumin Level 4.1 g/dl (3.5-5.0); Albumin/Globulin Ratio 1.3 (1.1-1.8); Alkaline Phosphatase 70 U/L (38-126); Aspartate Amino Transferase 36 U/L (14-36); Blood Urea Nitrogen 17 mg/dl (7-17); Calcium 9.4 mg/dl (8.4-10.2); Carbon Dioxide 23 mmol/L (22.0-30.0); Chloride 101 mmol/L (98-107); Creatinine Clearance Estimated 67 mL/min (50-200); Estimated Glomerular Filt Rate 42 ml/min (>60); GFR (African American) 51 ML/MIN (>60); Globulin 3.2 g/dL (1.3-3.2); Glucose 131 mg/dl (74-100); Sodium 133 mmol/L (136-145); Total Protein,Serum 7.3 g/dl (6.3-8.2)
--- NOTE | 2023-01-05 10:13 | PC.NURSE ---
Pt gone to RAD via wheelchair
[2023-01-05 10:19] LABS: Microscopic, Urine URINE MICROSCOPIC (MICROSCOPIC)
--- NOTE | 2023-01-05 10:19 | PC.NURSE ---
Pt returned from RAD
--- NOTE | 2023-01-05 10:19 | PC.NURSE ---
PT RETURNED FROM CT
[2023-01-05 10:22] LABS: Lactic Acid 1.4 mmol/L (0.7-2.1)
[2023-01-05 10:23] LABS: Appearance,Urine CLOUDY (Clear); Bilirubin,Urine Negative (Negative); Blood, Urine 2+ (Negative); Color,Urine YELLOW (Yellow); Glucose,Urine (UA) 2+ (Negative); Ketones,Urine Negative (Negative); Leukocyte Esterase,Urine 1+ (Negative); Nitrate,Urine Negative (Negative); PH,Urine 5.5 (5.0-8.5); Protein,Urine 1+ (Negative); Specific Gravity, Urine >= 1.030 (1.005-1.030); Urobilinogen,Urine 0.2 EU/dl (0.2)
--- NOTE | 2023-01-05 10:39 | PC.NURSE ---
requested that radiology make a disc of pt images
[2023-01-05 10:40] LABS: Bacteria,Urine Trace /lpf; WBC,Urine TNTC #/hpf (0-3)
[2023-01-05 10:42] LABS: Lymphocytes % 9 % (10-50); Monocytes % 7 % (2-9); Neutrophils % 84 % (42-76); Platelet Estimate Normal; RBC Morphology Normal; Total Cells Counted 100
--- NOTE | 2023-01-05 10:42 | PC.NURSE ---
Spoke with [facility] for possible transfer. Advised they would call back.
--- NOTE | 2023-01-05 11:20 | PC.NURSE ---
Called [facility] to check status of possible transfer. Advised they were waiting for the urologist to answer his page.
--- NOTE | 2023-01-05 11:47 | PC.NURSE ---
[facility] called back to advise Dr. Dumont, urologist, will consults, but would like Dr. Harden to speak with the hospitalist, Dr. Reese
--- NOTE | 2023-01-05 12:02 | PC.NURSE ---
Dr. Harden speaking with Dr. Reese at [place]
--- NOTE | 2023-01-05 12:04 | PC.NURSE ---
Dr. Reese accepted pt
--- NOTE | 2023-01-05 12:07 | PC.NURSE ---
dr pillai at bedside to update pt and family
--- NOTE | 2023-01-05 12:29 | PC.NURSE ---
[facility] called with bed assignment at this time. [facility] unit 3 telemetry number for report [phone] requested a face sheet to be faxed to [phone]
--- NOTE | 2023-01-05 14:57 | PC.NURSE ---
REPORT GIVEN TO MANUELITO CAMARENA AT [facility]
== END 2023-01-05 15:10 | disposition home or self-care (01) ==
PROVIDERS: Emergency Provider Student in an Organized Health Care Education/Training Program; PCP Emergency Medicine
DX: A41.89 Other specified sepsis (principal); N13.2 Hydronephrosis with renal and ureteral calculous obstruction; R10.32 Left lower quadrant pain; N39.0 Urinary tract infection, site not specified; R11.2 Nausea with vomiting, unspecified; R50.9 Fever, unspecified; E87.1 Hypo-osmolality and hyponatremia; F33.9 Major depressive disorder, recurrent, unspecified; F43.10 Post-traumatic stress disorder, unspecified; B96.89 Other specified bacterial agents as the cause of diseases classified elsewhere
CPT/HCPCS: 74176; 80053; 81001; 83605; 85007; 85025; 87040; 87086; 96361; 96365; 96375; 99291; J0696; J2405

== ENCOUNTER 2023-12-06 15:06 | Emergency (ER) | payer OTHER, SELFPAY ==
[2023-12-06 15:17] VITALS: BP 160/91; PULSE 79; RESP 18; TEMP 36.7; O2SAT 96; BMI 37.1
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
[2023-12-06 15:42] VITALS: BP 160/91; PULSE 79; RESP 18; TEMP 36.7; O2SAT 96
== END 2023-12-06 15:42 | disposition home or self-care (01) ==
PROVIDERS: Emergency Provider Nurse Practitioner; PCP Emergency Medicine
DX: M25.531 Pain in right wrist (principal); L03.113 Cellulitis of right upper limb
CPT/HCPCS: 87070; 87205; 99212; G0381

== ENCOUNTER 2024-08-17 08:46 | Outpatient (CLI) | payer OTHER, SELFPAY ==
--- OUTSIDE RECORDS SUMMARY | 2024-08-17 08:50 | XMS_ITS | Encounter Summary ---
Author Organization [employer] Address [address] [place] [address] Care Team Providers Care Floor Press Operator Name Role Phone Provider, Not In System Primary Care Provider Un available Encounter Details Date Type Department Care Team (Late st Contact Info) Description 06/23/2021 Transcribed Document [facility] Family Medicine [facility] [place] [address] ProviderAilyn MD [address] [id number] Social History Tobacco Use Types Packs/Day Years Used Date Smoking Tobacco: Never Assessed Comments Unknown Sex and Gender Information Value Date Recorded Sex Assigned at Female 09/27/2021 12:48 PM CDT Legal Sex Female 1:41 PM CDT Gender Identity Female 09/27/2021 12:48 PM CDT Sexual Orientation Not on file documented as of this encounter Miscellaneous Notes * Cerner Conversion Note - Ailyn ProviderMD - 06/23/2021 2:00 AM CDT Crew Leader Gluing Details Entered On: 06/23/2021 5:00 EDT Performed On: 06/23/2021 2:00 EDT by MARKY PATTERSON Registered Nurse Order Details Transport Mode Order Detail : Ambulatory Isolation Precautions Order Detail : Standard Precautions Order Detail : 0 IV Order Detail : 1 Oxygen Order Detail : 1 Nurse Collect Order Detail : 0 Lift/Transfer : Independent Central Line Order Detail : No Arterial Line : No Patient Needs Meds Crushed/Liquid : No MARKY PATTERSON Registered Nurse - 06/23/2021 5:00 EDT documented in this encounter Plan of Treatment Not on file documented as of this encounter Visit Diagnoses Not on filedocumented in this encounter Care Teams Floor Press Operator Relationship Specialty Start Date End Date Provider, Not In System [place] PCP - General 01/05/23 documented as of this encounter
--- OUTSIDE RECORDS SUMMARY | 2024-08-17 08:50 | XMS_ITS | Encounter Summary ---
Author Organization [employer] Address [address] [place] [address] Care Team Providers Care Wrapper Sizer Name Role Phone Provider, Not In System Primary Care Provider Un available Encounter Details Date Type Department Care Team (Late st Contact Info) Description 06/23/2021 Transcribed Document [facility] [address] [place] [address] Seth Helm MD [address] [place] [address] [place] [address] Social History Tobacco Use Types Packs/Day Years Used Date Smoking Tobacco: Never Assessed Comments Unknown Sex and Gender Information Value Date Recorded Sex Assigned at Female 09/27/2021 12:48 PM CDT Legal Sex Female 1:41 PM CDT Gender Identity Female 09/27/2021 12:48 PM CDT Sexual Orientation Not on file documented as of this encounter Miscellaneous Notes * Cerner Conversion Note - Seth Helm MD - 06/23/2021 1:34 PM EDT Patient: VENECIA NAGY Age: 56 Years Sex: Female : 1965 Admit Date 06/21/2021 16:08 Discharge Date 06/23/2021 Primary Care Provider no PCP Discharge Diagnosis Left ureteral stone 06/23/2021 N20.1 ICD-10-CM UTI (urinary tract infection) 06/23/2021 N39.0 ICD-10-CM 10mm obstructing left ureteral stone Acute UTI without sepsis Procedures SN - Proc - Procedure: Cystoscopy Stent Insertion (06/21/21 16:56:45) Reason for Hospitalization Ms. Nagy is a 56 year old female with no chronic medical problems who reports an 11 day history of intermittent left flank, LLQ pain with intermittent nausea, subjective night fevers. Her symptoms began when she closed on her house in [place] and was moving here to [place], she was dealing with the symptoms until yesterday she began vomiting and and was feeling badly in general, fever and went to [facility] ER. She was found to have an obstructing 10mm kidney stone on the left with UTI. She was transferred to this facility for urology treatment by Dr. Stern, we have been asked to do her admission. She was given rocephin IV prior to transfer. Urine culture was started at that facility. She reports having a similar problem September 2020 where she was uroseptic with a kidney stone. Dr. Stern has placed a left ureteral stent, plans to do further intervention to remove the stone once infection has been treated. She is having some pain but states it is intermittent, she doesn't like taking the pain med but she has needed it. Per her nurse she had fever last night. [1] Hospital Course Ms. Nagy was transferred from [facility] and Dr. Stern promptly took her to the OR and placed a left ureteral stent to relieve the obstruction from 10mm ureteral stone. His note mentions seeing purulent material from the renal pelvis. Pt tolerated the procedure well. She had been treated with rocephin at OSH but Dr. Stern recommended treated with quinolone. I spoke with microbiology at [facility] the morning of discharge, blood cultures were negative at 48 hours and urine culture was incomplete but appeared to be contaminated. Culture of fluid from renal pelvis incomplete but positive for enterococcus species. She has had nocturnal fevers since admission, was max 100.6 last evening compared to the 102-103 fevers she has been having prior. On the day of discharge she feels better, nausea and vomiting has resolved. Dr. Stern is agreeable to discharge on a quinolone. He plans to see her again for stone extraction in 2-3 weeks. Vital Signs T: 36.9 ??C TMIN: 36.9 ??C TMAX: 38.6 ??C HR: 62(Monitored) RR: 16 BP: 137/70 SpO2: 95% Oxygen Settings (Last) Oxygen Therapy Mode: Room air (06/23/21 05:29:00) Oxygen Flow Rate: 8 Liter/Min (06/21/21 16:55:00) Physical Exam General: alert, no acute distress Head: atraumatic normocephalic Eyes: anicteric, normal conj PERRL EOMI Neck: supple Lungs: CTAB Heart: RRR no murmur no edema Abd: soft, mild LLQ tenderness present BS, no guarding/rebound : deferred MSK: full ROM where tested, no edema, calf tenderness or unilateral swelling LE Skin: no rash/jaundice Neuro: alert and oriented, CN 2-12 grossly normal, symmetrical extremity motor function, symmetrical facial movement, finger to nose intact. Psych: cooperative normal mood and affect [2] Discharge Disposition Home Discharge Follow Up Primary care offices in [place] ANDREA STERN MD-URO - Within 2 weeks Discharge Medications (5) Active Levaquin 500 mg oral tablet 500 mg = 1 Tab, Oral, [id number] Multiple Vitamins oral tablet 1 Tab, Oral, Daily oxyCODONE 5 mg oral tablet 5 mg = 1 Tab, PRN, Oral, Q6H Vitamin C 500 mg oral tablet 500 mg = 1 Tab, Oral, Daily Zofran ODT 4 mg oral tablet, disintegrating See Instructions Code Status Start: 06/22/21 18:24:00 EDT, Full Code, Continuous Order Condition on Discharge improving, stable Consulting Physicians SUNSHINE HUERTA MD-ANS RAY, CHARLES G, MD-URO Current Diet Order Diet, Adult - Ordered -- Start: 06/22/21 18:24:00 EDT, Regular Diet, Isolation: Standard Precautions Patient Discharge Summary Orders Discharge Activity: Discharge Activity: Activity as tolerated Diet: Discharge Diet: Resume usual diet as tolerated Driving Restriction: No driving until 24 hours after taking pain medication Pending Labs Preliminary Culture Body Fluid and Stain Specimen Type: Fluid, From: Kidney L, Routine collect, Collected, 06/21/21 17:00:00 EDT By: ANDREA STERN MD-URO, 1-Time, Stop: 04/20/22 17:00:00 EDT, Nurse Collect, Specimen Desc: LEFT RENAL PELVIC FLUID, Print Label By Order Location Time Spent on Discharge total time spent 45 minutes [1] Admission H & P; MARINE CONDON PA-C 06/22/2021 18:23 EDT [2] Admission H & P; MARINE CONDON PA-C 06/22/2021 18:23 EDT documented in this encounter Plan of Treatment Not on file documented as of this encounter Visit Diagnoses Not on filedocumented in this encounter Care Teams Wrapper Sizer Relationship Specialty Start Date End Date Provider, Not In System [place] PCP - General 01/05/23 documented as of this encounter
--- OUTSIDE RECORDS SUMMARY | 2024-08-17 08:50 | XMS_ITS | Encounter Summary ---
Author Organization [employer] Address [address] [place] [address] Care Team Providers Care Log Cooker Name Role Phone Provider, Not In System Primary Care Provider Un available Encounter Details Date Type Department Care Team (Late st Contact Info) Description 06/22/2021 Transcribed Document [facility] [place] [facility] [place] [address] ProviderAilyn MD [address] [place] [address] Social History Tobacco Use Types Packs/Day Years Used Date Smoking Tobacco: Never Assessed Comments Unknown Sex and Gender Information Value Date Recorded Sex Assigned at Female 09/27/2021 12:48 PM CDT Legal Sex Female 1:41 PM CDT Gender Identity Female 09/27/2021 12:48 PM CDT Sexual Orientation Not on file documented as of this encounter Miscellaneous Notes * Cerner Conversion Note - Ailyn ProviderMD - 06/22/2021 2:00 AM CDT Seismic Prospecting Observer Details Entered On: 06/22/2021 4:44 EDT Performed On: 06/22/2021 2:00 EDT by Juanita Adams NON EMP RN - INTERNATIONAL Order Details Isolation Precautions Order Detail : Standard Precautions IV Order Detail : 1 Patient Needs Meds Crushed/Liquid : No Juanita Adams NON EMP RN - INTERNATIONAL - 06/22/2021 4:44 EDT documented in this encounter Plan of Treatment Not on file documented as of this encounter Visit Diagnoses Not on filedocumented in this encounter Care Teams Log Cooker Relationship Specialty Start Date End Date Provider, Not In System [place] PCP - General 01/05/23 documented as of this encounter
--- OUTSIDE RECORDS SUMMARY | 2024-08-17 08:50 | XMS_ITS | Continuity of Care Document ---
Author Organization [facility] Address [address] [place] [address] Care Team Providers Care Weighmaster Name Role Phone MARIA LUISA LOVE Primary Care Provider [phone] Assessment No assessment recorded. Plan of Treatment Reminders Order Date Submit Date Provider Last Modified By Organization Details Last Modified Time Details Appointments OV EST 20 2024 01:20P M BALDO Martinez Not available Not available Not available Lab None recorded. Referral dermatolo gist referral - suspiciou s for rodent ulcer of the nose 2024 025 [email or web address] Chauncey Centeno MD, [address] [place], [address], 08/11/2024 15:52:33 Procedures None recorded. Surgeries None recorded. Imaging None recorded. Medication Orders None recorded. Patient TargetsNo targets recorded. Patient InstructionsNo instructions recorded. Reason for Referral Pipe Jeeper Referral for L esion of skin of face suspicious for rodent ulcer of the nose Referring Physician: Maria Luisa Love, Family Medicine, Encounter Date: 07/14/2024 Problems Name Problem SNOMED Code Status Onset Date Resolution Date Notes Provider Name and Address Organization Details Recorded Time Intentional weight loss 832994814 Active [address], [place], [address] , [facility] & [place] 13:29:21 High hemoglobin A1c level 013680004 Active [address], [place], [address] , [place] [facility] & [place] 5 11:14:15 Hypothyroidis m 31575609 Active 2021 Not Available [facility] 3 12:26:10 Mixed anxiety and depressive disorder 089135945 Active 2021 Not Available [facility] 3 12:26:10 Insomnia 528790091 Active 2021 Not Available [facility] 3 12:26:10 Onychomycosis 234398324 Active 2022 Not Available [facility] 3 12:26:10 Obesity 197772208 Active 2022 Not Available [facility] 3 12:26:10 Hormonal activity 312954076 Active 2022 Not Available [facility] 3 12:26:10 Essential hypertension 86993775 Active 2023 BALDO [address], [place], [address] , [facility] - [facility] & [place] 4 12:26:08 Hyperlipidemi a 12834102 Active [address], [place], [address] , [facility] & [place] 4 12:26:12 Disorder of function of stomach 937066506 Active [address], [place], [address] , [place] [facility] & [place] 4 12:27:15 Problem Notes None recorded. Procedures Surgical History Date Name Laterality Status Provider Name and Address Organization Details Recorded Time 01/06/20 24 laparoscopic sleeve gastrectomy completed Janay Cervantes [facility] & [place] 01/14/2024 07:58:45 07/19/19 23 Most Recent Mammogram completed Cara Mccarty [facility] & [place] 07/18/2022 08:28:48 03/04/18 88 ENT Surgery completed BALDO Martinez [address], [place], [address], [facility] & [place] 09/03/2023 14:02:25 lithotripsy completed Alicia Garcia [facility] & [place] 07/19/2022 10:24:30 section completed Nenita Parish [facility] & [place] 09/02/2023 16:50:49 extraction of wisdom tooth completed Nenita Parish [facility] & [place] 09/02/2023 16:51:04 Tubal Ligation completed Nenita Parish [facility] & [place] 09/02/2023 16:51:26 tonsillectomy completed Chio Fajardo [facility] & [place] 11/11/2023 09:02:33 augmentation mammoplasty completed Chio Fajardo [facility] & [place] 11/11/2023 09:02:44 thumb surgery completed Janay Cervantes [facility] & [place] 07/16/2024 14:06:08 Imaging Results None recorded. Procedure Notes None recorded. Medical Equipment None Reported. Allergies Allergen ID Allergen Name Allergen Category Reaction Reaction Severity Criticality Documentation Date Start Date Code Code System Note Provider Name and Address Organization Details Recorded Time 791389 No known allergy (situatio n) Not available Not available Not available Not available 07/06/2024 15297 [id number] SNOMED China Colon null, [facility] & [place] 13:05:38 No known drug allergies Medications Name Sig Start Date Stop Date Status Note LastModified by Organization Details LastModified Time atorvastati n 40 mg tablet TAKE 1 TABLET BY MOUTH EVERY DAY 07/16 completed Not Available Not Available Not Available doxycycline hyclate 100 mg capsule TAKE 1 CAPSULE BY MOUTH TWO TIMES A DAY FOR 10 DAYS 02/09 completed Not Available Not Available Not Available cefuroxime axetil 250 mg tablet TAKE 1 TABLET BY MOUTH TWICE A DAY 08/19 completed Not Available Not Available Not Available clindamycin HCl 300 mg capsule TAKE 1 CAPSULE BY MOUTH 3 TIMES A DAY FOR 7 DAYS 12/31 completed Not Available Not Available Not Available trazodone 50 mg tablet TAKE 1 TABLET BY MOUTH EVERY DAY AT BEDTIME NEEDED FOR 30 DAYS 02/09 completed Not Available Not Available Not Available ibuprofen 800 mg tablet TAKE 1 TABLET BY MOUTH THREE TIMES A DAY active Not Available Not Available No t Available doxepin 25 mg capsule TAKE 1 TO 2 CAPSULES BY MOUTH AT BEDTIME NEEDED active Not Available Not Available No t Available hydrocodone 5 mg-acetamin ophen 325 mg tablet 1 tablet by oral route. 04/28 completed Not Available Not Available Not Available phentermine 37.5 mg tablet TAKE 1 TABLET BY MOUTH EVERY DAY 08/18 completed Not Available Not Available Not Available valacyclovi r 500 mg tablet 09/02 completed Not Available Not Available Not Available ciprofloxac in 500 mg tablet TAKE 1 TABLET BY MOUTH EVERY 12 HOURS 08/19 completed Not Available Not Available Not Available omeprazole 40 mg capsule,del ayed release 40 mg by oral route. active Not Available Not Available No t Available water for injection, sterile injection solution 15 mL by injection route. 04/28 completed Not Available Not Available Not Available oxycodone-a cetaminophe n 5 mg-325 mg tablet TAKE 1 TABLET BY MOUTH EVERY 4 HOURS NEEDED FOR UP TO 10 DAYS . MAX DAILY AMOUNT: 6 TABLETS 08/19 completed Not Available Not Available Not Available trazodone 100 mg tablet Take 1 tablet every day by oral route at bedtime for 90 days. 10/17 completed Not Available Not Available Not Available cephalexin 500 mg capsule TAKE 1 CAPSULE BY MOUTH EVERY 6 HOURS FOR 7 DAYS 02/09 completed Not Available Not Available Not Available lisinopril 10 mg tablet Take 20 mg by oral route. 07/16 completed Not Available Not Available Not Available fentanyl (PF) 50 mcg/mL injection solution 100 microgram s by injection route. 04/27 completed Not Available Not Available Not Available Synthroid 50 mcg tablet 50 microgram s by oral route. active Not Available Not Available No t Available gabapentin 300 mg capsule TAKE 1 CAPSULE BY MOUTH THREE TIMES A DAY FOR 7 DAYS 02/05 completed Not Available Not Available Not Available omeprazole 20 mg capsule,del ayed release TAKE 1 CAPSULE BY MOUTH EVERY DAY 07/16 completed Not Available Not Available Not Available lisinopril 20 mg-hydrochl orothiazide 25 mg tablet TAKE 1 TABLET BY MOUTH EVERY DAY 07/16 completed Not Available Not Available Not Available mupirocin 2 % topical ointment APPLY TOPICALLY THREE TIMES A DAY FOR 10 DAYS APPLY THIN LAYER TO AREA ON RIGHT WRIST 12/31 completed Not Available Not Available Not Available norethindro ne acetate 5 mg tablet TAKE 1 TABLET BY MOUTH EVERY DAY 08/18 completed Not Available Not Available Not Available cefuroxime axetil 500 mg tablet TAKE 1 TABLET BY MOUTH TWICE A DAY FOR 5 DAYS 08/19 completed Not Available Not Available Not Available celecoxib 100 mg capsule TAKE 1 CAPSULE TWICE A DAY BY MOUTH FOR 7 DAYS. 02/05 completed Not Available Not Available Not Available ondansetron 4 mg disintegrat ing tablet 4 mg by oral route. 04/27 completed Not Available Not Available Not Available cefdinir 300 mg capsule TAKE 1 CAPSULE BY MOUTH TWICE A DAY FOR 10 DAYS 02/09 completed Not Available Not Available Not Available doxycycline hyclate 100 mg tablet TAKE 1 TABLET BY MOUTH EVERY DAY FOR 10 DAYS 02/09 completed Not Available Not Available Not Available progesteron e micronized 100 mg capsule TAKE 1 CAPSULE BY MOUTH AT BEDTIME 08/19 completed Not Available Not Available Not Available midazolam 1 mg/mL injection solution 2 mg by injection route. 04/27 completed Not Available Not Available Not Available fentanyl (PF) 50 mcg/mL injection syringe 25 microgram s by injection route. 04/28 completed Not Available Not Available Not Available bupivacaine (PF) 0.25 % (2.5 mg/mL) injection solution 10 mL by injection route. 04/27 completed Not Available Not Available Not Available rosuvastati n 20 mg tablet TAKE 1 TABLET BY MOUTH EVERY DAY 11/12 completed Not Available Not Available Not Available duloxetine 20 mg capsule,del ayed release TAKE 1 CAPSULE BY MOUTH EVERY DAY FOR 10 DAYS, THEN STOP THE MEDICINE 08/27 completed Not Available Not Available Not Available Calcium Chew active Not Available Not Available Not Available ondansetron HCl (PF) 4 mg/2 mL injection solution 4 mg by injection route. 04/28 completed Not Available Not Available Not Available famotidine (PF) 20 mg/2 mL intravenous solution 20 mg by intraven. route. 04/27 completed Not Available Not Available Not Available desvenlafax ine succinate ER 50 mg tablet,exte nded release 24 hr TAKE 1 TABLET BY MOUTH EVERY DAY 08/19 completed Not Available Not Available Not Available desvenlafax ine succinate ER 100 mg tablet,exte nded release 24 hr TAKE 1 TABLET BY MOUTH EVERY DAY active Not Available Not Available No t Available diclofenac 1 % topical gel APPLY 4G TO AFFECTED AREA UP TO 4 TIMES A DAY 02/09 completed Not Available Not Available Not Available ropivacaine (PF) 5 mg/mL (0.5 %) injection solution 150 mg by injection route. 04/27 completed Not Available Not Available Not Available topiramate XR 25 mg capsule sprinkle,ex tended release 24 hr TAKE 1 CAPSULE BY MOUTH EVERY DAY active Not Available Not Available No t Available Pristiq 25 mg tablet,exte nded release 100 mg by oral route. active Not Available Not Available No t Available duloxetine 40 mg capsule,del ayed release TAKE 1 CAPSULE BY MOUTH EVERY DAY 08/27 completed Not Available Not Available Not Available Vraylar 1.5 mg capsule TAKE 1 CAPSULE BY MOUTH DAILY active Not Available Not Available No t Available Vraylar 3 mg capsule Take 1 capsule by oral route for 90 days. 09/02 completed Not Available Not Available Not Available Dilaudid (PF) 0.5 mg/0.5 mL injection syringe 0.5 mg by injection route. 04/28 completed Not Available Not Available Not Available Bariatric Multivitami ns active Not Available Not Available Not Available Tab-A-Nuzhat 400 mcg tablet 1 tablet by oral route. active Not Available Not Available No t Available Wegovy 0.25 mg/0.5 mL subcutaneou s pen injector INJECT 0.25 MG SUBCUTANE OUSLY EVERY WEEK 2022 active Not Available Not Available Not Avai lable cefazolin 2 gram solution for injection 2000 mg by injection route. 04/28 completed Not Available Not Available Not Available Vitals Date Recorded Body height Body mass index (BMI) Body weight Body temperature Oxygen saturation Oxygen saturation in Arterial blood by Pulse oximetry Heart rate Respiratory rate Systolic blood pressure Diastolic blood pressure Provider Name and Address Organization Details Last Updated DateTime 167.64 cm 29.6 kg/m2 53574.5 6 g 98.2 [degF] 99 % 99 % 92 /min 16 /min 111 mm[Hg] 73 mm[Hg] Cara Mccarty [facility] & [place] 10:37:35 Social History Question Answer Notes LastModified by Organizat ion Details LastModified Time Tobacco Smoking Status Never Smoker Not Available [facility] 07/27/2022 12:26:11 Do You Have An Advance Directive? No Information n ot available 07/14/2024 Do You Wear A Helmet When Biking? No Information not available 07/14/2024 Are You Blind Or Do You Have Difficulty Seeing? No CHART_MERGE Information n ot available 07/27/2022 What Is Your Level Of Caffeine Consumption? None CHART_MERGE Information not available 07/27/2022 In The 14 Days Before Symptom Onset, Have You Had Close Contact With A Laboratory-confirm ed COVID-19 While That Case Was Ill? No Information n ot available 07/14/2024 In The 14 Days Before Symptom Onset, Have You Had Close Contact With A Person Who Is Under Investigation For COVID-19 While That Person Was Ill? No Information not available 07/14/2024 Have You Been To An Area Known To Be High Risk For COVID-19? No Information not available 07/14/2024 Are You Deaf Or Do You Have Serious Difficulty Hearing? No Information not available 07/14/2024 Have You Processed Blood Or Body Fluids From An Ebola Virus Disease Patient Without Appropriate PPE? No Information not available 07/14/2024 Do You Reside In Or Have You Traveled To An Area Where Ebola Virus Transmission Is Active? No Information not available 07/14/2024 Have There Been Any Changes To Your Family Or Social Situation? No Information no t available 07/14/2024 What Is The Fluoride Status Of Your Home? Unknown Information not available 07/14/2024 Are There Any Guns Present In Your Home? No Information not available 07/14/2024 Have You Recently Or Are You Planning To Travel To An Area With Zika Virus? No Information not available 07/14/2024 Do You Use Insect Repellent Routinely? Yes Information not available 07/14/2024 Do You Feel Safe At Home? Yes Information not available 07/14/2024 Do You Have Any Pets? Yes Information not available 07/14/2024 What Is Your Relationship Status? Information not available 07/14/2024 Do You Use Your Seat Belt Or Car Seat Routinely? Yes Information not available 07/14/2024 Do You Have Smoke And Carbon Monoxide Detectors In Your Home? Yes Information not available 07/14/2024 Are You Passively Exposed To Smoke? No CHART_MERGE Information no t available 07/27/2022 Do You Use Sunscreen Routinely? Yes Information not available 07/14/2024 Has Tobacco Cessation Counseling Been Provided? No CHART_MERGE Information not available 07/27/2022 Do You Have Difficulty Walking Or Climbing Stairs? No Information not available 07/14/2024 Are You Currently In School? No Information not available 07/14/2024 Sex: Unknown Functional Status Question Answer Note LastModified by Organizat ion Details LastModified Time Do you use any illicit or recreational drugs? No CHART_MERGE Information not available 07/27/2022 Do you or have you ever used any other forms of tobacco or nicotine? No CHART_MERGE Information not available 07/27/2022 What is your level of alcohol consumption? Occasional Information not available 08/20/2023 Are you currently employed? Yes Information not available 07/14/2024 Do you have transportation difficulties? No Information not available 07/14/2024 Are you able to walk? YESWOREST Information not available 07/14/2024 Do you have difficulty doing errands alone? No Information not available 07/14/2024 Are you able to care for yourself? Yes Information n ot available 07/14/2024 Do you have difficulty dressing or bathing? No Information not available 07/14/2024 Mental Status Question Answer Note LastModified by Organizat ion Details LastModified Time Do you feel stressed (tense, restless, nervous, or anxious, or unable to sleep at night)? [id number] CHART_MERGE Information not available 07/27/2022 Do you have difficulty concentrating, remembering or making decisions? No Information no t available 07/14/2024 Family History Relationship Description Onset Age of this Age Resolved Age Notes LastModified by Organization Details LastModified Time Father Heart disease [email or web address] Not available 2023 09:38:51 Father Diabetes mellitus Not available 2024 10:27:37 Father Kidney stone [email or web address] Not avai lable 07/14/2024 10:27:37 Mother Heart disease [email or web address] Not available 2023 09:38:57 Mother Hypertensive disorder [email or web address] Not available 2024 10:02:23 Medical History Condition Response Diabetes N Arthritis Y Kidney Stones Y Thyroid Problems Y Kidney or Bladder Problems Y Diverticulitis N Depression Y Hypothyroidism Y Reflux/GERD Y Sleep Apnea Y High Cholesterol Y Hypertension Y Obstructive Sleep Apnea Y Gynecological History Statement/Question Response Menses Monthly N Abnormal Pap N Most Recent Mammogram 07/18/2022 Date of LMP 02/20/2021 Sexually Active? N Obstetrics History GPAL:G 0 P 0 0 0 0 Past Encounters Encounter ID Performer Location Encounter Start Date Encounter Closed Date Diagnosis/Indication Diagnosis SNOMED-CT Code Diagnosis ICD10 Code Diagnosis Note [id number] Maria Luisa Love MD [facility] [address] [place], [place] [address] 07/14/2024 10:27:34 07/14/2024 11:23:23 Lesion of skin of face 2912768980 06 L98.9 well will refer patient to Dermatolog y Health Concerns Section Related Observation LastModified by Organization Detai ls LastModified Time None Recorded Concern Status LastModified by Organization Details LastModified Time None Recorded Payers Encounter Date Sequence Insurance Name Policy Number Policy Patel Covered Member ID Patel Member ID Guarantor Name 07/14/2024 1 [facility] (MEDICAID REPLACEMENT - HMO) [id number] Venecia Caruso [id number] Venecia Nazariotman Notes Date Note Type Note Provider Name and Address Organization Details Recorded Time 07/14/2024 text/html patient presents today with skin lesion to the left side of her nose. Patient states that he has become raised and crusty. Maria Luisa Love MD [address] [place] [address], [id number] & [place] 07/14/2024 11:00:35 OBGyn Episode No OBEpisode recorded.
--- OUTSIDE RECORDS SUMMARY | 2024-08-17 08:50 | XMS_ITS | Encounter Summary ---
Author Organization [employer] Address [address] [place] [address] Care Team Providers Care Certified Physical Therapist Assistant Name Role Phone Provider, Not In System Primary Care Provider Un available Encounter Details Date Type Department Care Team (Late st Contact Info) Description 06/21/2021 Transcribed Document [facility] [place] [facility] [address] [place] [address] ProviderAilyn MD [address] [place] [address] Social History Tobacco Use Types [...] Cerner Conversion Note - Ailyn ProviderMD - 06/21/2021 4:31 PM CDT [facility] Main OR IntraOp Summary Primary Physician: ANDREA BAILEY MD-URO Finalized Date/Time: 06/23/21 08:54:35 Pt. Name: VENECIA NAGYKATHYAJOANA /Sex: 1965 Female Med Rec #: [id number] Physician: DAGOBERTO RAMOS MD Financial #: [id number] Pt. Type: I Room/Bed: [facility]/ Admit/Disch: 06/21/21 16:08:00 - Institution: [facility] IntraOp Case Attendance Entry 1 Entry 2 Entry 3 Case Attendee ANDREA BAILEY MD-URO SKYLER RENE APRN GHANSAH, SUNHSINE FORD MD-ANS Role Performed Surgeon/Proceduralist, POLYSOMNOGRAPH TECH/Nurse Hall Porter Anesthesiologist First Time In 06/21/21 16:10:00 06/21/21 16:10:00 06/21/21 16:10:00 Time Out 06/21/21 16:52:00 06/21/21 16:52:00 06/21/21 16:52:00 Procedure Cystoscopy Stent Cystoscopy Stent Cystoscopy Stent Insertion Insertion Insertion Other Attendee Superficial Wound Closed By: Last Modified By: Cecile Schwarz, Cecile Stone, Cecile Stone RN 06/21/21 16:55:47 06/21/21 16:55:38 06/21/21 16:55:38 Entry 4 Entry 5 Entry 6 Case Attendee Richmond Vitale RN Duncan, Richelle, EMILIA KNOTT Role Performed Distance Education Coordinator, First Distance Education Coordinator, First Scrub, First Time In 06/21/21 16:10:00 06/21/21 16:18:00 06/21/21 16:10:00 Time Out 06/21/21 16:20:00 06/21/21 16:52:00 06/21/21 16:52:00 Procedure Cystoscopy Stent Cystoscopy Stent Cystoscopy Stent Insertion Insertion Insertion Other Attendee Superficial Wound Closed By: Last Modified By: Cecile Schwarz RN Duncan, Richelle, RN Duncan, Richelle, RN 06/21/21 16:55:38 06/21/21 16:55:38 06/21/21 16:55:38 [facility] IntraOp Case Attendance Audit 06/21/21 16:55:47 Construction Administrator: [id number] Modifier: [id number] <+> 1 Procedure 06/21/21 16:55:38 Construction Administrator: [id number] Modifier: [id number] <+> 1 Time Out 2 <+> Time In 2 <+> Time Out 2 <*> Procedure Cystoscopy Stent Insertion 3 <+> Time In 3 <+> Time Out 3 <*> Procedure Cystoscopy Stent Insertion 4 <+> Time In 4 <*> Procedure Cystoscopy Stent Insertion 5 <+> Time Out 5 <*> Procedure Cystoscopy Stent Insertion 6 <+> Time In 6 <+> Time Out 6 <*> Procedure Cystoscopy Stent Insertion [facility] IntraOp Case Times Entry 1 Patient In Room Time 06/21/21 16:10:00 Out Room Time 06/21/21 16:52:00 Anesthesia Start Time 06/21/21 16:10:00 Stop Time 06/21/21 16:52:00 Surgery / Procedure Times Start Time 06/21/21 16:31:00 Stop Time 06/21/21 16:46:00 Last Modified By: Cecile Schwarz RN 06/21/21 16:52:12 [facility] IntraOp Case Times Audit 06/21/21 16:52:12 Construction Administrator: [id number] Modifier: [id number] <+> 1 Out Room Time <+> 1 Stop Time <+> 1 Stop Time [facility] IntraOp Communication Entry 1 Communication To Family/Significant other Comment start Communication By Cecile Schwarz RN Date and Time 06/21/21 16:33:00 Last Modified By: Cecile Schwarz RN 06/21/21 16:43:17 [facility] IntraOp Cultures and Spec Summary Entry 1 Cultrures and Specimens Specimen Ordered: Yes Test(s) Culture(s)/Microbiology Requested/Final Disposition Last Modified By: Cecile Schwarz RN 06/21/21 16:43:33 [facility] IntraOp Departure from OR Entry 1 Integumentary Assessment Integumentary WDL Assessment WDL Transfer/Handoff Transfer to PACU Phase I Handoff Method Phone call Post-op Transport Stretcher/Champrney Via Patient Transport SKYLER RENE, Accompanied by Chong CHANDRA Richelle, RN Last Modified By: Cecile Schwarz RN 06/21/21 16:43:49 [facility] IntraOp Fire Risk Assessment Entry 1 Fire Info Surgical Site or 0- No Incision Above the Xyphoid Open O2 Source 1- Yes (Mask or Cannula) Available Ignition 1- Yes (ESU, Laser, Light Source) Fire Risk 2 Assessment Score Fire Score Fire Risk Yes Assessment Complete Fire Risk Richmond Vitale I, back roller Verified By Fire Risk 06/21/21 16:10:00 Assessment Verified Date/Time Fire Risk Standard Fire Yes Safety Precautions Followed Last Modified By: Cecile Schwarz RN 06/21/21 16:43:54 [facility] IntraOp General Case Seal Skinner 1 Case Information OR Cysto 01 [facility] Case Level 1 Room Verified Yes Wound Class No Incision Specialty Urology Anesthesia Type General ASA Class 2 Diagnosis Preop Diagnosis LEFT URETERAL STONE, UTI Postop Same As Preop Yes Postop Diagnosis LEFT URETERAL STONE, UTI Wound Class Definitions Last Modified By: Cecile Schwarz RN 06/21/21 16:44:26 [facility] IntraOp Implant Log Entry 1 Type Implant (Synthetic) Implant Log Implant Type Other Implant STENT URET BRAID + Identification [id number] Description Implant Quantity 1 Implant Site LEFT URETER Implant [id number] Identification Lot Number Implant Guild Identification Sci:Urology/Gynecology Machine I Trimmer Name: Implant [id number] Identification Catalog Number Implant Has an Yes Expiration Date Implant Expiration 01/17/24 Date Tissue Implant Last Modified By: Cecile Schwarz RN 06/21/21 16:46:26 [facility] IntraOp Intraoperative Assessment Entry 1 Handoff Method Online nursing summary Valid History / Yes Physical in Chart Preoperative Yes Checklist Reviewed/Evaluated Allergies Reviewed Yes Patient is Latex No Sensitive Isolation Not applicable Precautions Noted Level of WDL Consciousness (WDL = Alert, Oriented to Person, Place, and Time) Skin Assessment Yes Verified Present Upon IVs Arrival to OR Last Modified By: Cecile Schwarz RN 06/21/21 16:44:35 [facility] IntraOp Intraoperative Equipment Entry 1 Equipment Intraop Monitoring Antiembolic Devices Antiembolic Devices Sequential compression device, knee high Antiembolic Device Bilateral Location Antiembolic Device SCDS ON AND WORKING Setting PRIOR TO INDUCTION Scopes Photo/Video Documentation Last Modified By: Cecile Schwarz RN 06/21/21 16:45:05 [facility] IntraOp Medication Admin Entry 1 Medication/Irrigant LUB SURGLUB JELLY FLIPCAP [id number] Dose Administered By ANDREA BAILEY MD-URO Procedure Irrigation Last Modified By: Cecile Schwarz RN 06/21/21 16:45:12 [facility] IntraOp Patient Positioning Entry 1 Procedure Cystoscopy Stent Insertion Body Position Lithotomy Left Arm Position Tucked and padded at side Right Arm Position Tucked and padded at side Left Leg Position Secured in Leg Patel Right Leg Position Secured in Leg Patel Feet Uncrossed Yes Pressure Points Yes Checked Positioning Devices Head Rest, Table, Cysto, Pad, Elbow, Stirrups/Leg Patel, Cysto Positioned By ANDREA BAILEY MD-URO, Richmond Vitale I, RN Position Verified Positioning Yes Verified by Anesthesia Positioning Yes Verified by Surgeon Last Modified By: Cecile Schwarz RN 06/21/21 16:45:17 [facility] IntraOp Sign In Entry 1 Patient, Site, Yes Procedure Identified Surgical Consent Yes Confirmed Relevant Surgical Yes Documents Available Surgical Site N/A Marked by person performing procedure Anesthesia Machine Yes Check Completed Medication Checks Yes Completed Allergies Yes Airway Difficult Yes Airway/Aspiration Risk Difficult Yes Airway/Aspiration Intervention Equipment Available Blood Loss Risk Yes Blood Loss Yes Intervention Equipment Prepared and Ready Blood Identifiers Not applicable Verified Per Policy Hypothermia Risk Yes Warming Measures Yes Taken Last Modified By: Cecile Schwarz RN 06/21/21 16:45:24 [facility] IntraOp Sign Out Entry 1 RN Confirmation Surgical Yes Procedure(s) Identified Instrument, Sponge N/A and Sharps Counts Correct/Documented Equipment Problems N/A Documented Specimen Labeled Yes Correctly Urinary Catheter N/A Documented in IView Wound Yes classification reviewed, verified and updated post case in both the General Case Data and Procedure segments Fuentes Patient Yes Recovery Concerns Reviewed with Anesthesia Provider, Surgeon and RN Fuentes Patient Yes Management Concerns Reviewed with Anesthesia Provider, Surgeon and RN Safety Checklist Yes Elements Complete? RN Sign Out Cecile Schwarz RN Signature RN Sign Out 06/21/21 16:55:00 Signature Date/Time Plan of Care Outcome - Fire Risk OUTCOME STATEMENT: Goal met Patient is free from injury related to surgical fire Plan of Care Outcome - Pt Positioning OUTCOME STATEMENT: Goal met Absence of signs and symptoms of positioning injury. Plan of Care Outcome - Skin Prep OUTCOME STATEMENT: Goal met Intraoperative care is consistent with measures to prevent infection Plan of Care Outcome - Xray/Images OUTCOME STATEMENT: Goal met Absence of observable signs or symptoms of radiation injury Plan of Care Outcome - Counts OUTCOME STATEMENT: Goal met Absence of signs and symptoms of injury related to extraneous objects Last Modified By: Cecile Schwarz RN 06/21/21 16:55:59 [facility] IntraOp Sign Out Audit 06/21/21 16:55:59 Construction Administrator: [id number] Modifier: [id number] 1 <+> Specimen Labeled Correctly 1 <*> RN Sign Out Signature Richmond Vitale I RN 1 <+> RN Sign Out Signature Date/Time 1 <+> Urinary Catheter Documented in IView 1 <+> Wound classification reviewed, verified and updated post case in both the General Case Data and Procedure segments [facility] IntraOp Skin Prep Entry 1 Procedure Cystoscopy Stent Insertion Prescribed Yes Pre-Surgical Prep Completed Prep Area GENITALIA Intraop Prep Integumentary WDL Assessment WDL Prep Agents Betadine solution Prep by Richmond Vitale I RN Hair Removal Last Modified By: Cecile Schwarz RN 06/21/21 16:56:21 [facility] IntraOp Surgical Procedures Entry 1 Procedure Cystoscopy Stent Insertion Additional CYSTOSCOPY WITH LEFT Procedure URETERAL STENT PLACEMENT Description Primary Procedure Yes Primary Surgeon ANDREA BAILEY MD-URO Start 06/21/21 16:31:00 Stop 06/21/21 16:46:00 Anesthesia Type General Specialty Urology Wound Class No Incision Last Modified By: Cecile Schwarz RN 06/21/21 16:56:45 [facility] IntraOp Temp Regulation Devices Entry 1 Temp Regulation Temperature Warm blankets, Forced Regulation Device Air Warming device Temperature Upper body Regulation Site Temperature monitored per Regulation Comment anesthesia, sydni hugger available Last Modified By: Cecile Schwarz RN 06/21/21 16:56:48 [facility] IntraOP Time Out Entry 1 Procedure to be Cystoscopy Stent Performed Insertion Time Out Time Out Pause Time 06/21/21 16:31:00 All activity Yes suspended (unless life threatening emergency) Team Verbally Correct patient Confirms Information identity, Correct side and site are marked, Consent form is present and accurate, Agreement on the procedure to be done, Correct patient position, Confirm antibiotics have been administered, Confirm the skin prep has dried, Confirm prosthesis/implant/devic e is present, Performed in location of procedure after prepped/draped, Reconcile problems if responses among team members differ Time Out Comment PATIENT RECEIVED [facility] 06/21/21 AT [facility] PRIOR TO TRANSFER TO [facility] Antibiotic Yes Prophylaxis Administered Or In Progress Within the Last 60 Minutes Beta Hsira N/A Administered Venous Yes Thromboembolism Prophylaxis Required Anticipated Critical Events Surgeon None expected Anesthesia Provider None expected Nursing Assures Sterility of instruments, Implant Availability Essential Imaging N/A Labeled and Displayed Last Modified By: Cecile Schwarz RN 06/21/21 16:58:16 Case Comments <None> Finalized By: KATT ERAZO Document Signatures Signed By: KATT ERAZO 06/22/21 09:32 [email or web address] 06/23/21 08:54 Unfinalized History Date/Time Username Reason for Unfinalizing Freetext Reason for Unfinalizing 06/23/21 08:52 [email or web address] Correct Billing Electronically signed by [facility], [facility] Conversion Food Editor Cerner at 06/17/2022 9:56 AM CDT documented in this encounter Plan of Treatment Not on file documented as of this encounter Visit Diagnoses Not on filedocumented in this encounter Care Teams Certified Physical Therapist Assistant Relationship Specialty Start Date End Date Provider, Not In System [place] PCP - General 01/05/23 documented as of this encounter
--- OUTSIDE RECORDS SUMMARY | 2024-08-17 08:50 | XMS_ITS | Encounter Summary ---
Author Organization [employer] Address [address] [place] [address] Care Team Providers Care Mill Stenciler Name Role Phone Provider, Not In System Primary Care Provider Un available Encounter Details Date Type Department Care Team (Late st Contact Info) Description 09/10/2021 Transcribed Document [facility] [place] [facility] [place] [address] ProviderAilyn MD [address] [place] [address] Social History Tobacco Use Types Packs/Day Years Used Date Smoking Tobacco: Never Assessed Comments Unknown Sex and Gender Information Value Date Recorded Sex Assigned at Female 09/27/2021 12:48 PM CDT Legal Sex Female 1:41 PM CDT Gender Identity Female 09/27/2021 12:48 PM CDT Sexual Orientation Not on file documented as of this encounter Miscellaneous Notes * Cerner Conversion Note - Ailyn Cavazos MD - 09/10/2021 8:13 PM CDT [address] [address] VENECIA NAGY :1965 Visit Time:09/10/2021 Your Visit Summary Your Care Team Primary Provider: MYLENE BONE Secondary Provider: Your Diagnosis Abscess - complicated Facial cellulitis Medical Information You may obtain a copy of your Emergency Department visit from Medical Records by calling the hospital phone number listed above and asking to be directed to the Medical Records Department. If you had special tests, such as EKG???s or X-rays, the interpretation of your tests given to you by the Emergency Department Physician is a preliminary report. Some fractures and illnesses fail to show up on preliminary tests. These will be reviewed again and we will call you if there are any new suggestions. If your symptoms continue notify your physician. After you leave, you should follow the instructions provided. What to do next Follow-Up Appointments Follow Up with Return to emergency department When Within 2 to 3 days Follow Up with [facility] (Find a Doc) When Within 2 to 3 days Comments Call in the AM with your primary healthcare provider, return to ER for worsening of pain swelling, fever, nausea Take antibiotics as prescribed Continue taking your Keflex, will add doxycycline as a second antibiotic Where: [address] [place] [address] Business (1) Follow Up with [facility] When Within 2 to 3 days Where: [address] [place] [address] Business (1) Allergies No Known Allergies Immunizations This Visit No Immunizations Found Medications What How Much When Instructions Next Dose doxycycline (doxycycline hyclate 100 mg oral tablet) 1 Tablet(s) Oral Every Day Duration: 10 Day(s) Pickup at [facility]/pharmacy #[id number] acetaminophen-oxyCODONE (Percocet 5/ 325 oral tablet) 1 Tablet(s) Oral One Time Order as needed for Pain (Moderate 4-6) ascorbic acid (Vitamin C 500 mg oral tablet) 1 Tablet(s) Oral Every Day cephalexin (cephalexin 500 mg oral capsule) 1 Capsule(s) Oral Four Times A Day Duration: 10 Day(s) Pickup at [facility]/pharmacy #[id number] multivitamin (Multiple Vitamins oral tablet) 1 Tablet(s) Oral Every Day Pharmacy Information [facility]/pharmacy #[id number]: [address] [place], [place] [id number] [phone] The home medications listed are only as accurate as the information you provided. Please continue taking all of your medications prescribed by your Primary Care Provider unless specifically told to change or discontinue the medication. Please direct any questions regarding your home medications to your Primary Care Provider. Take your medications faithfully. Do NOT skip medication. Do NOT stop taking medications without the direction of a physician. Carry a list of your medications with you at all times, and take this medication list with you to your first follow up visit. Report any side effects. Avoid herbal remedies unless discussed with your physician. As part of your treatment plan, your physician may have prescribed a limited course of a controlled substance. This medication may be given to help people with moderate or severe pain or for other medical conditions, but there are risks involved with treatment. Common side effects may include nausea, constipation, drowsiness, sweating, itching, dry mouth, and rash. More serious side effects may include cognitive and motor impairment, like problems with thinking, concentrating, alertness, and movement (e.g. slowed reflexes), and driving and operating heavy machinery can be dangerous. It is important for you to talk to your physician if you have these side effects or questions. These controlled substances can produce physical dependence and be habit-forming if taken for an extended period of time, which means that the body has gotten used to them and may experience withdrawal symptoms if they are abruptly stopped. Withdrawal symptoms can include runny nose, sweating, goose bumps, diarrhea, abdominal cramping, rapid heartbeat, difficulty sleeping, and nervousness. Please dispose of unused and medications per pharmacy guidance. Test Results Laboratory or Other Results This Visit (last charted value for your 09/10/2021 visit) Hematology 09/10/2021 6:02 PM WBC: 11.2 K/uL -- Normal range between ( 3.9 and 10.0 ) RBC: 4.76 Million/uL -- Normal range between ( 3.93 and 5.22 ) Hct: 41.8 % -- Normal range between ( 34.1 and 44.9 ) Hgb: 14.0 Gram/dL -- Normal range between ( 11.2 and 15.7 ) Platelet Count: 286 K/uL -- Normal range between ( 163 and 369 ) MCH: 29.4 pg -- Normal range between ( 25.6 and 32.2 ) MCHC: 33.5 Gram/dL -- Normal range between ( 32.3 and 36.5 ) MCV: 87.8 fL -- Normal range between ( 79.0 and 94.8 ) Slide Review: No Eos %: 1.4 % -- Normal range between ( 1.0 and 7.0 ) Greer #: 0.81 K/uL -- Normal range between ( 0.24 and 0.82 ) Eos #: 0.16 K/uL -- Normal range between ( 0.04 and 0.54 ) Greer %: 7.2 % -- Normal range between ( 4.7 and 12.5 ) Baso %: 0.4 % -- Normal range between ( 0.0 and 1.0 ) Baso #: 0.05 K/uL -- Normal range between ( 0.01 and 0.08 ) RDW: 13.9 % -- Normal range between ( 11.6 and 14.4 ) Neut %: 54.6 % -- Normal range between ( 34.0 and 71.0 ) Neut #: 6.12 K/uL -- Normal range between ( 1.56 and 6.13 ) Lymph %: 36.2 % -- Normal range between ( 19.3 and 53.0 ) Lymph #: 4.06 K/uL -- Normal range between ( 1.18 and 3.74 ) MPV: 8.9 fL -- Normal range between ( 9.4 and 12.4 ) IG#: 0 x10(3)/uL IG%: 0 % -- Normal range between ( 0 and 1 ) General Chemistry 09/10/2021 6:02 PM Creatinine Level: 0.83 mg/dL -- Normal range between ( 0.55 and 1.02 ) Sodium Level: 138 mmol/L -- Normal range between ( 136 and 146 ) Potassium Level: 4.0 mmol/L -- Normal range between ( 3.5 and 5.1 ) Chloride Level: 105 mmol/L -- Normal range between ( 102 and 112 ) Carbon Dioxide Level: 24 mmol/L -- Normal range between ( 21 and 32 ) Anion Gap: 13 -- Normal range between ( 9 and 20 ) Bilirubin Total: 0.5 mg/dL -- Normal range between ( 0.2 and 1.3 ) A/G Ratio: 1.0 -- Normal range between ( 1.1 and 2.5 ) ALT: 92 Units/Liter -- Normal range between ( 12 and 78 ) AST: 40 Units/Liter -- Normal range between ( 5 and 37 ) Globulin: 3.8 Gram/dL -- Normal range between ( 1.5 and 4.5 ) Alk Phos: 99 Units/Liter -- Normal range between ( 27 and 136 ) Bun/Creatinine: 19.3 -- Normal range between ( 8.0 and 20.0 ) Calcium Level: 9.4 mg/dL -- Normal range between ( 8.5 and 10.1 ) eGFR : >60 mL/min/1.73m2 eGFR NonAfrican: >60 mL/min/1.73m2 Glucose Level: 108 mg/dL -- Normal range between ( 74 and 106 ) Blood Urea Nitrogen: 16 mg/dL -- Normal range between ( 7 and 22 ) Lactic Acid Level: 1.2 mmol/L -- Normal range between ( 0.4 and 2.0 ) Protein Total: 7.7 Gram/dL -- Normal range between ( 6.4 and 8.2 ) Albumin Level: 3.9 Gram/dL -- Normal range between ( 3.4 and 5.0 ) Computed Tomography 09/10/2021 7:[address] Max Facial Area W: CT Max Facial Area W [employer] Cellulitis, Adult Cellulitis is a skin infection. The infected area is usually warm, red, swollen, and tender. This condition occurs most often in the arms and lower legs. The infection can travel to the muscles, blood, and underlying tissue and become serious. It is very important to get treated for this condition. What are the causes? Cellulitis is caused by bacteria. The bacteria enter through a break in the skin, such as a cut, burn, insect bite, open sore, or crack. What increases the risk? This condition is more likely to occur in people who: ??? Have a weak body defense system (immune system). ??? Have open wounds on the skin, such as cuts, ingram, bites, and scrapes. Bacteria can enter the body through these open wounds. ??? Are older than 60 years of age. ??? Have diabetes. ??? Have a type of long-lasting (chronic) liver disease (cirrhosis) or kidney disease. ??? Are obese. ??? Have a skin condition such as: ? Itchy rash (eczema). ? Slow movement of blood in the veins (venous stasis). ? Fluid buildup below the skin (edema). ??? Have had radiation therapy. ??? Use IV drugs. What are the signs or symptoms? Symptoms of this condition include: ??? Redness, streaking, or spotting on the skin. ??? Swollen area of the skin. ??? Tenderness or pain when an area of the skin is touched. ??? Warm skin. ??? A fever. ??? Chills. ??? Blisters. How is this diagnosed? This condition is diagnosed based on a medical history and physical exam. You may also have tests, including: ??? Blood tests. ??? Imaging tests. How is this treated? Treatment for this condition may include: ??? Medicines, such as antibiotic medicines or medicines to treat allergies (antihistamines). ??? Supportive care, such as rest and application of cold or warm cloths (compresses) to the skin. ??? Hospital care, if the condition is severe. The infection usually starts to get better within 1???2 days of treatment. Follow these instructions at home: Medicines ??? Take [id number] and prescription medicines only as told by your health care provider. ??? If you were prescribed an antibiotic medicine, take it as told by your health care provider. Do not stop taking the antibiotic even if you start to feel better. General instructions ??? Drink enough fluid to keep your urine pale yellow. ??? Do not touch or rub the infected area. ??? Raise (elevate) the infected area above the level of your heart while you are sitting or lying down. ??? Apply warm or cold compresses to the affected area as told by your health care provider. ??? Keep all follow-up visits as told by your health care provider. This is important. These visits let your health care provider make sure a more serious infection is not developing. Contact a health care provider if: ??? You have a fever. ??? Your symptoms do not begin to improve within 1???2 days of starting treatment. ??? Your bone or joint underneath the infected area becomes painful after the skin has healed. ??? Your infection returns in the same area or another area. ??? You notice a swollen bump in the infected area. ??? You develop new symptoms. ??? You have a general ill feeling (malaise) with muscle aches and pains. Get help right away if: ??? Your symptoms get worse. ??? You feel very sleepy. ??? You develop vomiting or diarrhea that persists. ??? You notice red streaks coming from the infected area. ??? Your red area gets larger or turns dark in color. These symptoms may represent a serious problem that is an emergency. Do not wait to see if the symptoms will go away. Get medical help right away. Call your local emergency services (911 in the [place] Do not drive yourself to the hospital. Summary ??? Cellulitis is a skin infection. This condition occurs most often in the arms and lower legs. ??? Treatment for this condition may include medicines, such as antibiotic medicines or antihistamines. ??? Take [id number] and prescription medicines only as told by your health care provider. If you were prescribed an antibiotic medicine, do not stop taking the antibiotic even if you start to feel better. ??? Contact a health care provider if your symptoms do not begin to improve within 1???2 days of starting treatment or your symptoms get worse. ??? Keep all follow-up visits as told by your health care provider. This is important. These visits let your health care provider make sure that a more serious infection is not developing. This information is not intended to replace advice given to you by your health care provider. Make sure you discuss any questions you have with your health care provider. Document Revised: 02/29/2020 Document Reviewed: 07/10/2018 [employer] Patient Education ?? 2020 [employer] Emergency Awareness and Preventative Care STROKE is an EMERGENCY Every Minute Counts Act FAST and Check for these signs: FACE Does the face look uneven? ARM Does one arm drift down? SPEECH Does their speech sound strange? TIME Call at any sign of stroke Stroke Risk Factors Atrial Fibrillation (irregular heartbeat) Diabetes Family history of stroke Heart Disease Heavy alcohol use High Blood Pressure High Cholesterol Physical inactivity and obesity Smoking Cigarette Smoking The facts are clear, cigarette smoking will shorten your life. Smoking can cause many illnesses along the way. As a healthcare provider, we recommend that you stop smoking. Assistance with quitting is available by contacting 8-480-FFCO-NOW. This is a free resource providing counseling, support, and referral. Or you may contact your personal physician. National Suicide Prevention Lifeline: The National Suicide Prevention Lifeline is a national network of local crisis centers that provides free and confidential emotional support to people in suicidal crisis or emotional distress 24 hours a day, 7 days a week. Don't Wait! Stop a Heart Attack Before it Starts What is a heart attack? A heart attack is damage or to a part of the heart from severely decreased or lack of blood flow to the heart. Over time, arteries can become narrow from the buildup of fat and cholesterol, which is called plaque. The plaque can rupture causing a blood clot to form. When the blood clot forms, the artery can become severely narrowed or completely blocked, causing a heart attack. Heart attack is the leading cause of in the [place]. 85% of muscle damage occurs within the first 2 hours. Delay in the recognition of heart attack symptoms increases the chances of . Know the early symptoms of a heart attack: Nausea Feeling of fullness in chest Jaw Pain Pain that travels down one or both arms Fatigue/being tired Anxiety Back Pain Chest pressure, squeezing, or discomfort Shortness of breath Sweating, or a cold sweat Feeling of impending doom There are unusual signs of a heart attack, too! Women, the elderly, and diabetics may present with atypical symptoms: Fainting/dizziness Weakness Confusion Risk Factors for a Heart Attack Some heart disease risk factors, such as age and family history, cannot be changed. Others, like smoking and lack of exercise, can be changed. Smoking High Cholesterol High Blood Pressure Family History Obesity Age Gender (Males are at higher risk) Lack of Exercise Diabetes Diet Stress Excessive Alcohol Intake If you or someone you know is experiencing the signs and symptoms of a heart attack, DON???T DELAY. Call immediately and seek help. If someone collapses, perform CPR! Do not attempt to drive if you are having symptoms of heart attack. Hands-Only CPR Why Hands-Only CPR? Hands-Only CPR has been shown to be as effective as conventional CPR for cardiac arrests that occur outside of a hospital. Survival depends on immediately receiving CPR from someone nearby. How do you perform Hands-Only CPR? There are two easy steps: Call if you see a teen or adult collapse Push hard and fast in the center of the chest at a beat of 100 beats per minute. Save a life! 4 WAYS TO GET AHEAD OF SEPSIS SEPSIS is a MEDICAL EMERGENCY. Time matters! Infections put you and your family at risk for a life-threatening condition called sepsis. Sepsis is the body's extreme response to an infection. It is life-threatening, and without timely treatment, sepsis can rapidly lead to tissue damage, organ failure, and . Sepsis happens when an infection you already have-in your skin, lungs, urinary tract or somewhere else-triggers a chain reaction throughout your body. 1 PREVENT INFECTIONS Take good care of chronic conditions. Talk to your doctor about getting the recommended vaccines. 2 PRACTICE GOOD HYGIENE Wash your hands frequently. Keep cuts or open sores clean and covered until they are healed. 3 KNOW THE SYMPTOMS Confusion or disorientation Shortness of breath High heart rate Fever, shivering, or feeling very cold Extreme pain or discomfort Clammy or sweaty skin 4 ACT FAST Get medical care IMMEDIATELY if you suspect sepsis or if you have an infection that is not getting better or is getting worse. To learn more about sepsis and how to prevent infections, visit www.cdc.gov/sepsis. The examination and treatment you have received in the Emergency Department has been done to provide an appropriate evaluation and stabilizing treatment on an emergency basis only. Given the limited resources, it is not meant to be a substitute for complete medical care. The follow-up doctor you named will receive a copy of your records and all test reports. IT IS IMPORTANT THAT YOU SCHEDULE A FOLLOW-UP APPOINTMENT AND ARE RE-EVALUATED. You should report any new complaints, symptoms, or remaining problems at that time. IT IS IMPOSSIBLE FOR THE EMERGENCY DEPARTMENT TO RECOGNIZE AND TREAT ALL ELEMENTS OF INJURY OR ILLNESS IN A SINGLE VISIT. If you have been referred to a specialist physician, it means that we believe you may have a condition that requires the expertise of a specialist. These physicians work in partnership with the hospital and have agreed to see referred patients in their office for further evaluation. KEEP IN MIND THAT THE SPECIALIST HAS HIS/HER OWN OFFICE POLICIES WHICH MAY REQUIRE PROPER INSURANCE OR PAYMENT UP FRONT BEFORE THE SPECIALIST WILL SEE YOU. It is your responsibility to call the specialist physician to make an appointment. We do not have the ability to refer patients to specialists/physicians that work with specific insurance companies. Please be advised that all financial charges or billing practices are determined by that practice, not the hospital. If your insurance company requires that you see a specialist from their approved list, it is your responsibility to contact your insurance company to make those arrangements. It is also your responsibility to follow any other requirements of your insurance company necessary to obtain coverage for claims submitted. We will bill your insurance; however, you are responsible today for any co-pay amounts. You will receive a separate bill for any services you may have received including: emergency, radiology, or pathology physicians. Patient Name:VENECIA NAGY I have received this information and was given the opportunity to ask questions. Patient/Implementation Project Manager Name: Patient/Implementation Project Manager Signature: Relationship to Patient: Clinician/Hospital Implementation Project Manager Signature: Please Provide a Telephone Number Where You Can Be Reached: Is it Permissible To Leave a Message? Date: documented in this encounter Plan of Treatment Not on file documented as of this encounter Visit Diagnoses Not on filedocumented in this encounter Care Teams Mill Stenciler Relationship Specialty Start Date End Date Provider, Not In System [place] PCP - General 01/05/23 documented as of this encounter
--- OUTSIDE RECORDS SUMMARY | 2024-08-17 08:50 | XMS_ITS | Encounter Summary ---
Author Organization [facility] [employer] Address [address] [place] [address] Care Team Providers Care International Freight Forwarder Name Role Phone Provider, Not In System Primary Care Provider Un available Encounter Details Date Type Department Care Team (Late st Contact Info) Description 09/10/2021 Transcribed Document [facility] [place] [facility] [address] [place] [address] ProviderAilyn MD [address] [id number] Social History Tobacco Use Types Packs/Day Years Used Date Smoking Tobacco: Never Assessed Comments Unknown Sex and Gender Information Value Date Recorded Sex Assigned at Female 09/27/2021 12:48 PM CDT Legal Sex Female 1:41 PM CDT Gender Identity Female 09/27/2021 12:48 PM CDT Sexual Orientation Not on file documented as of this encounter Miscellaneous Notes * Cerner Conversion Note - Ailyn ProviderMD - 09/10/2021 6:47 PM CDT Pain Assessment Entered On: 09/10/2021 20:12 EDT Performed On: 09/10/2021 20:12 EDT by Shirley Mcgrath RN Intervention Information: morphine Performed by Shirley Mcgrath RN on 09/10/2021 19:07:00 EDT morphine,4mg IV Push,Peripheral Line 1 Pain Assessment Pain Assessment : Follow-up assessment Shirley Mcgrath RN - 09/10/2021 20:12 EDT documented in this encounter Plan of Treatment Not on file documented as of this encounter Visit Diagnoses Not on filedocumented in this encounter Care Teams International Freight Forwarder Relationship Specialty Start Date End Date Provider, Not In System [place] PCP - General 01/05/23 documented as of this encounter
--- OUTSIDE RECORDS SUMMARY | 2024-08-17 08:50 | XMS_ITS | Encounter Summary ---
Author Organization [employer] Address [address] [place] [address] Care Team Providers Care Electric Motor Winders Assembler Name Role Phone Provider, Not In System Primary Care Provider Un available Encounter Details Date Type Department Care Team (Late st Contact Info) Description 06/22/2021 Transcribed Document [facility] [place] Family Medicine [facility] [place] [address] ProviderAilyn MD [address] [place], [place] [id number] Social History Tobacco Use Types Packs/Day Years [...] Conversion Note - Ailyn ProviderMD - 06/22/2021 1:36 PM CDT Initial Discharge Planning Entered On: 06/22/2021 13:41 EDT Performed On: 06/22/2021 13:36 EDT by LA SHETH POLICE OFFICER CRIME PREVENTION NON-EXEMPT Initial Assessment I Previously Documented Living Environment : No qualifying data available. Living Situation : Home Patient Lives With : Parent(s) Is the Patient a Caregiver at Home? : Yes For Whom are they a Caregiver? : Parent(s) Emergency Contact #1 : Gely Lara Emergency Contact #1 Emergency Contact #1 Relationship : Sister Emergency Contact #2 : - Emergency Contact #2 Phone Number : - Emergency Contact #2 Relationship : - Identified Medical Decision Maker : Venecia Caruso Identified Medical Decision Maker Number of People in Class : 1 Identified Medical Decision Maker Class : Self 2nd Ident. Medical Decision Maker : Howie Roderick 2nd Ident. Medical Decision Maker Secondary Number of People in Class : 1 2nd Ident. Medical Decision Maker Class : HCS Was Referral made to PCP? : Yes Does Patient have PCP Listed? : No [place] POLICE OFFICER CRIME PREVENTION NON-EXEMPT - 06/22/2021 13:36 EDT Initial Assessment II Sensory and Motor Deficits : None Current Home Treatments and Equipment : None [place] S[place]EH POLICE OFFICER CRIME PREVENTION NON-EXEMPT - 06/22/2021 13:36 EDT Discharge Needs I Anticipated Discharge Date : 06/23/2021 EDT Anticipated Discharge To, CM : Home independently Current Home Treatment/Equipment : Current Home Treatment/Equipment No qualifying data available. Post Acute/Home Treatments : None Documentation Status Complete : Yes [place] POLICE OFFICER CRIME PREVENTION NON-EXEMPT - 06/22/2021 13:36 EDT Discharge Needs II Professional Skilled Services : Professional Skilled Services No qualifying data available. Needs Assistance with Transportation : No Discharge Options Discussed with Patient : Acute rehabilitation, Discharge transportation, DME, Home Health Patient Discharge Goal : Home [place] POLICE OFFICER CRIME PREVENTION NON-EXEMPT - 06/22/2021 13:36 EDT Narrative Note Narrative Note : HD# 1 ELOS: Not yet recorded RAR: Not yet recorded Pt came in for L CVA pain and nausea Admitted for Ilya Renal Stones, Nausea and Vomiting, LIZZY Pt on room air, IV Ceftriaxone, no PT/OT ordered Pt lives at home with Pt's 85 year old mother. 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 Pt recently moved here from [place]. Pt does not have insurance, but financial assistance working with Pt to set up Medicaid. Pt PLOF independent. Pt has no DME and no home O2. Pt has no h/o home health or SNF. * Pt has no preference if hhs or snf is needed.Pt typically drives herself. Pt's sister will provide transportation at [place]. Pt has no concerns related to safety getting in and out of vehicle. CM sent referral to [facility] for PCP DCP: Home independently [place] SHETH, POLICE OFFICER CRIME PREVENTION NON-EXEMPT - 06/22/2021 13:36 EDT documented in this encounter Plan of Treatment Not on file documented as of this encounter Visit Diagnoses Not on filedocumented in this encounter Care Teams Electric Motor Winders Assembler Relationship Specialty Start Date End Date Provider, Not In System [place] PCP - General 01/05/23 documented as of this encounter
--- OUTSIDE RECORDS SUMMARY | 2024-08-17 08:50 | XMS_ITS | Encounter Summary ---
Author Organization [employer] Address [address] [place] [address] Care Team Providers Care Sprinkling Truck Driver Name Role Phone Provider, Not In System Primary Care Provider Un available Encounter Details Date Type Department Care Team (Late st Contact Info) Description 06/23/2021 Transcribed Document [facility] [place] [facility] [place] [address] ProviderAilyn MD [address] [place], [place] [id number] Social History Tobacco Use Types Packs/Day Years [...] Conversion Note - Ailyn ProviderMD - 06/23/2021 1:26 PM CDT UM Authorization Entered On: 06/23/2021 13:26 EDT Performed On: 06/23/2021 13:26 EDT by MACEY LESTER RN Primary Insurance Authorization Authorization and Policy Numbers : Insurance 1 Health Plan: MEDICAID PENDING Policy Number: [id number] Authorization Number: Insurance Primary Name : SELF PAY Authorized Service Begin Date-Primary : 06/21/2021 EDT Authorization Comments-Primary : MEDICAID PENDING at the time of review Historical Authorization Comments-Primary : [facility] (Lary Balbuena, Rn-Utilization Review 06/22/2021 10:58) MACEY LESTER RN - 06/23/2021 13:26 EDT Electronically signed by [facility] Conversion Wood Lathe Operator Cerner at 06/17/2022 9:36 AM CDT documented in this encounter Plan of Treatment Not on file documented as of this encounter Visit Diagnoses Not on filedocumented in this encounter Care Teams Sprinkling Truck Driver Relationship Specialty Start Date End Date Provider, Not In System [place] PCP - General 01/05/23 documented as of this encounter
--- OUTSIDE RECORDS SUMMARY | 2024-08-17 08:50 | XMS_ITS | Encounter Summary ---
Author Organization [employer] Address [address] [place] [address] Care Team Providers Care Station Supervisor Name Role Phone Provider, Not In System Primary Care Provider Un available Encounter Details Date Type Department Care Team (Late st Contact Info) Description 09/10/2021 Transcribed Document [facility] [place] [address] [place] [address] ProviderAilyn MD [address] [place], [place] [phone] Social History Tobacco Use Types Packs/Day Years [...] Conversion Note - Ailyn ProviderMD - 09/10/2021 5:03 PM CDT Broset Violence Assessment Entered On: 09/10/2021 17:56 EDT Performed On: 09/10/2021 17:56 EDT by Shirley Mcgrath RN Broset Violence Assessment Broset Violence Checklist of Symptoms : None Broset Violence Symptoms Subtotal : 0 Broset Violence Symptoms Indicator : Low risk (0) Shirley Mcgrath RN - 09/10/2021 17:56 EDT Electronically signed by Rich [facility] Conversion Head Golf Professional Cerner at 06/17/2022 10:00 AM CDT documented in this encounter Plan of Treatment Not on file documented as of this encounter Visit Diagnoses Not on filedocumented in this encounter Care Teams Station Supervisor Relationship Specialty Start Date End Date Provider, Not In System [place] PCP - General 01/05/23 documented as of this encounter
--- OUTSIDE RECORDS SUMMARY | 2024-08-17 08:50 | XMS_ITS | Encounter Summary ---
Author Organization [employer] Address [address] [place] [address] Care Team Providers Care Executive Officer Name Role Phone Provider, Not In System Primary Care Provider Un available Encounter Details Date Type Department Care Team (Late st Contact Info) Description 06/22/2021 Transcribed Document [facility] [place] [facility] [place] [address] ProviderAilyn MD [address] [place], [place] [id number] Social History Tobacco Use Types Packs/Day Years [...] Conversion Note - Ailyn ProviderMD - 06/22/2021 10:58 AM CDT UM Authorization Entered On: 06/22/2021 10:58 EDT Performed On: 06/22/2021 10:58 EDT by Lary Balbuena Rn-Utilization Review Primary Insurance Authorization Authorization and Policy Numbers : Insurance 1 Health Plan: SELF PAY Policy Number: Authorization Number: Insurance Primary Name : SELF PAY Authorized Service Begin Date-Primary : 06/21/2021 EDT Authorization Comments-Primary : [facility] REFERRAL PER STAR NOTES Historical Authorization Comments-Primary : No Authorization Comments Found Lary Balbuena, Rn-Utilization Review - 06/22/2021 10:58 EDT documented in this encounter Plan of Treatment Not on file documented as of this encounter Visit Diagnoses Not on filedocumented in this encounter Care Teams Executive Officer Relationship Specialty Start Date End Date Provider, Not In System [place] PCP - General 01/05/23 documented as of this encounter
--- OUTSIDE RECORDS SUMMARY | 2024-08-17 08:50 | XMS_ITS | Encounter Summary ---
Author Organization [employer] Address [address] [place] [address] Care Team Providers Care Record Label Intern Name Role Phone Provider, Not In System Primary Care Provider Un available Encounter Details Date Type Department Care Team (Late st Contact Info) Description 06/21/2021 Transcribed Document [facility] [place] [address] [place] [address] ProviderAilyn MD [address] [place] [address] Social History Tobacco Use Types [...] Ailyn ProviderMD - 06/21/2021 4:31 PM CDT [facility] Main OR PACU Summary Primary Physician: ANDRAE BAILEY MD-URO Finalized Date/Time: 06/21/21 20:11:12 Pt. Name: VENECIA NAGYNOLBERTO /Sex: 1965 Female Med Rec #: [id number] Physician: DAGOBERTO RAMOS MD Financial #: [id number] Pt. Type: O Room/Bed: 367/1 Admit/Disch: 06/21/21 12:27:00 - Institution: [facility] Main OR PACU I Case Times Entry 1 In PACU I 06/21/21 16:55:00 Ready for PACU 06/21/21 18:40:00 Discharge Discharge from PACU 06/21/21 18:40:00 I Last Modified By: EDU GOTTLIEB RN 06/21/21 20:10:46 [facility] Main OR PACU I Case Times Audit 06/21/21 20:10:46 Wood Heel Back Liner: TAMRA Modifier: BRANDEP <+> 1 Ready for PACU Discharge <+> 1 Discharge from PACU I Finalized By: EDU GOTTLIEB, RN Document Signatures Signed By: EDU GOTTILEB RN 06/21/21 20:11 Electronically signed by Rich [facility] Conversion Certified Ski Patroller Cerner at 06/17/2022 10:02 AM CDT documented in this encounter Plan of Treatment Not on file documented as of this encounter Visit Diagnoses Not on filedocumented in this encounter Care Teams Record Label Intern Relationship Specialty Start Date End Date Provider, Not In System [place] PCP - General 01/05/23 documented as of this encounter
--- OUTSIDE RECORDS SUMMARY | 2024-08-17 08:50 | XMS_ITS | Encounter Summary ---
Author Organization [employer] Address [address] [place] [address] Care Team Providers Care Applied Researcher Name Role Phone Provider, Not In System Primary Care Provider Un available Encounter Details Date Type Department Care Team (Late st Contact Info) Description 06/21/2021 Transcribed Document [facility] [place] Family Medicine [address] [place] [address] ProviderAilyn MD [address] [place], [place] [phone] Social History Tobacco Use Types Packs/Day Years [...] Conversion Note - Ailyn ProviderMD - 06/21/2021 1:06 PM CDT PAT Adult Entered On: 06/21/2021 13:06 EDT Performed On: 06/21/2021 13:06 EDT by Ivonne Heredia RN Height and Weight, Clinical Dosing Height Source : Measured Height Entry Format : [place] Height, Feet : 5 ft(Converted to: 152 cm, 60 Inch) Height, Inches : 6 Inch(Converted to: 0 ft 6 Inch, 15.24 cm) Clinical Height : 167.64 cm Weight Source : Standing scale Weight Entry Format : Murray Clinical Dosing Weight : 95 kg Weight, Pounds : 209 lb Body Surface Area (BSA) : 2.04 m2 Body Mass Index : 33.8 kg/m2 (HI) [place] Body Weight : 59 kg Ivonne Heredia RN - 06/21/2021 13:06 EDT Health Histories Smoking Status : Never (less than 100 in lifetime; none in last 30 days) Smokeless Tobacco Status : Never Ivonne Heredia RN - 06/21/2021 13:20 EDT Social History (As Of: 06/21/2021 13:23:30 EDT) Tobacco: Never (less than 100 in lifetime) Smoking Status. Never Smokeless Tobacco Status. (Last Updated: 06/21/2021 13:12:41 EDT by Ivonne Heredia, RN) Alcohol: Alcohol Use History Yes. Days/Week: 2. (Last Updated: 06/21/2021 13:12:48 EDT by Ivonne Heredia, RN) Infectious Disease History Does patient have symptoms of COVID-19? : No Tested for COVID19 in the past 14 days : Yes, Patient stated results Negative Does the Patient state known exposure to a COVID-19 positive case in the last 14 days? : No Patient Vaccinated for COVID-19 : Fully vaccinated Ivonne Heredia RN - 06/21/2021 13:20 EDT Infectious Disease Risk Screening Grid Cough < 2 wks of unknown origin : NO Cough > 2 weeks : NO Blood in Sputum : NO Fever or self-reported Fever : NO Rash of unknown origin : NO Headache : NO Stiff neck : NO Night Sweats : NO Unexplained Weight Loss : NO Diarrhea (3 episode per day) : NO Ivonne Heredia RN - 06/21/2021 13:20 EDT Physical contact outside [place] in the last 30 days : No Hospitalized in Foreign Country : No Infectious Disease History : None INF Disease TB Screening Calc : 0 INF Disease Recent Travel Calc : 0 Ivonne Heredia RN - 06/21/2021 13:20 EDT COVID19 PreProcedure Screening Is this an Emergent or Add on Procedure? : No Date PreProcedure COVID-19 test known? : Yes Date of PreProcedure COVID-19 : 06/21/2021 EDT Has patient been isolated since the test : Yes Exposed to COVID19 symptoms since test? : No Ivonne Heredia RN - 06/21/2021 13:20 EDT Anesthesia/Transfusion History Family History of Anesthesia Reaction : No prior transfusion(s) Blood Transfusion Acceptable to Patient : No Transfusion History : No prior anesthesia Family History of Anesthesia Reaction : None Ivonne Heredia RN - 06/21/2021 13:20 EDT Functional Assessment Functional ADL Evaluation Index EBN Bathing : Independent (2) Dressing : Independent (2) Toileting : Independent (2) Transferring Bed or Chair : Independent (2) Continence : Independent (2) Feeding : Independent (2) Ivonne Heredia RN - 06/21/2021 13:20 EDT ADL Index Score : 12 Ivonne Heredia RN - 06/21/2021 13:20 EDT Advance Directive Patient has Advance Directive *Q : No, patient refuses Advance Directive information Ivonne Heredia RN - 06/21/2021 13:20 EDT Spiritual/Cultural Needs Any Spiritual/Cultural Needs or Requests : No Ivonne Heredia RN - 06/21/2021 13:20 EDT [place] Suicide Severity Rating Scale (C-SSRS) CSSRS Past Month Wish to be : No CSSRS Past Month Suicidal Thoughts : No CSSRS Lifetime Suicide Behavior : No Suicide Severity Rating Score : 0 Suicide Severity Rating : No Additional Care Required at this time Ivonne Heredia RN - 06/21/2021 13:20 EDT Psychosocial History Currently in Unsafe Situation : No Ivonne Heredia RN - 06/21/2021 13:20 EDT General Info Want Family/Rep/Phys Notified of Admit : No Emergency Contact #1 : Gely Emergency Contact #1 Emergency Contact #1 Relationship : Sister Emergency Contact #2 : - Emergency Contact #2 Phone Number : - Emergency Contact #2 Relationship : - Identified Medical Decision Maker : - Primary Language : Lithuanian Communication Barrier : None Poultry Hatchery Manager Needed : No Ivonne Heredia RN - 06/21/2021 13:20 EDT Ladarius Scale Ladarius Sensory Perception : No impairment Ladarius Moisture : Rarely moist Ladarius Activity : Walks frequently Ladarius Mobility : No limitation Ladarius Nutrition : Excellent Ladarius Friction and Shear : No apparent problem Ladarius Score : 23 Ivonne Heredia RN - 06/21/2021 13:20 EDT Sleep Apnea Risk Assmt BiPAP/CPAP Ordered for Home Use : No Hx of Obstructive Sleep Apnea Diagnosis : Yes Age over 50 Years Old : Yes Gender Male : No Ivonne Heredia RN - 06/21/2021 13:20 EDT Electronically signed by Rich [facility] Conversion Film Processor Cerner at 06/17/2022 9:52 AM CDT documented in this encounter Plan of Treatment Not on file documented as of this encounter Visit Diagnoses Not on filedocumented in this encounter Care Teams Applied Researcher Relationship Specialty Start Date End Date Provider, Not In System [place] PCP - General 01/05/23 documented as of this encounter
--- OUTSIDE RECORDS SUMMARY | 2024-08-17 08:50 | XMS_ITS | Encounter Summary ---
Author Organization [employer] Address [address] [place] [address] Care Team Providers Care Reservations Sales Agent Name Role Phone Provider, Not In System Primary Care Provider Un available Encounter Details Date Type Department Care Team (Late st Contact Info) Description 06/22/2021 Transcribed Document [facility] [place] [address] [place] [address] ProviderAilyn MD [address], [place] [phone] Social History Tobacco Use Types Packs/Day Years [...] Conversion Note - Ailyn ProviderMD - 06/22/2021 5:00 AM CDT Chart Check - Review Order Profile Entered On: 06/22/2021 4:44 EDT Performed On: 06/22/2021 5:00 EDT by Juanita Adams NON EMP RN - INTERNATIONAL Chart Check Powerplans Initiated/Discontinued as Appropriate : Yes All Active Orders Reviewed : Yes Juanita Adams NON EMP RN - INTERNATIONAL - 06/22/2021 4:44 EDT Electronically signed by Gayle Villanueva Conversion Weatherstrip Machine Operator Cerner at 06/17/2022 9:59 AM CDT documented in this encounter Plan of Treatment Not on file documented as of this encounter Visit Diagnoses Not on filedocumented in this encounter Care Teams Reservations Sales Agent Relationship Specialty Start Date End Date Provider, Not In System [place] PCP - General 01/05/23 documented as of this encounter
--- OUTSIDE RECORDS SUMMARY | 2024-08-17 08:50 | XMS_ITS | Encounter Summary ---
Author Organization [employer] Address [address] [place] [address] Care Team Providers Care Softball Player Name Role Phone Provider, Not In System Primary Care Provider Un available Encounter Details Date Type Department Care Team (Late st Contact Info) Description 06/21/2021 Transcribed Document [facility] [place] [address] [place] [address] ProviderAilyn MD [address] [place], [place] [phone] Social History Tobacco Use Types Packs/Day Years [...] Conversion Note - Ailyn ProviderMD - 06/21/2021 5:36 PM CDT Pain Assessment Entered On: 06/22/2021 4:45 EDT Performed On: 06/21/2021 23:33 EDT by Juanita Adams NON EMP RN - INTERNATIONAL Intervention Information: acetaminophen Performed by Juanita Adams NON EMP RN - INTERNATIONAL on 06/21/2021 22:33:00 EDT acetaminophen,500mg Oral,Pain (Mild 1-3) Pain Assessment Pain Assessment : Follow-up assessment Pain Scale Goal : 4 Pain Scale Used : 0-10 Scale Juanita Adams NON EMP RN - INTERNATIONAL - 06/22/2021 4:45 EDT Pain Scale Intensity : 2 Juanita Adams NON EMP RN - INTERNATIONAL - 06/22/2021 4:45 EDT Image 4 - Images currently included in the form version of this document have not been included in the text rendition version of the form. Electronically signed by Rich [facility] Conversion Wanigan Clerk Cerner at 06/17/2022 9:52 AM CDT documented in this encounter Plan of Treatment Not on file documented as of this encounter Visit Diagnoses Not on filedocumented in this encounter Care Teams Softball Player Relationship Specialty Start Date End Date Provider, Not In System [place] PCP - General 01/05/23 documented as of this encounter
--- OUTSIDE RECORDS SUMMARY | 2024-08-17 08:50 | XMS_ITS | Encounter Summary ---
Author Organization [employer] Address [address] [place] [address] Care Team Providers Care Product/Industry Consultant Name Role Phone Provider, Not In System Primary Care Provider Un available Encounter Details Date Type Department Care Team (Late st Contact Info) Description 06/23/2021 Transcribed Document [facility] [place] [facility] [place] [address] ProviderAilyn MD [address] [place], [place] [phone] Social History Tobacco Use Types Packs/Day Years [...] Conversion Note - Ailyn Cavazos MD - 06/23/2021 11:59 AM CDT Final Discharge Planning Entered On: 06/23/2021 12:00 EDT Performed On: 06/23/2021 11:59 EDT by SAIMA GUAMAN, MANUELITO-Pier Runner Final Discharge Planning Discharge Arrangements : Patient Post-Acute Information Patient Name: VENECIA NAGY Gender: Female : [birth year] Age: 56 Years No Post-Acute Placement(s) Listed No Post-Acute Service(s) Listed No [place] Referral(s) Listed Transportation Needs : Family/Friend Is Patient High/Moderate Readmission Risk? : No Patient/Family Notified of Plan : Yes Support Person/Pt Rep Notified of Plan : Yes Is Patient Ready for Discharge? : Yes Physician Notified Patient is Ready for Discharge? : Yes Discharge To Care Management : Home/Residential/Skilled Nursing or Self Care -01 SAIMA GUAMAN RN-Pier Runner - 06/23/2021 11:59 EDT Final Narrative Note Final Narrative Note : Discharged to home, agreeable. No needs verbalized at this time. SAIMA GUAMAN RN-Pier Runner - 06/23/2021 11:59 EDT documented in this encounter Plan of Treatment Not on file documented as of this encounter Visit Diagnoses Not on filedocumented in this encounter Care Teams Product/Industry Consultant Relationship Specialty Start Date End Date Provider, Not In System [place] PCP - General 01/05/23 documented as of this encounter
--- OUTSIDE RECORDS SUMMARY | 2024-08-17 08:50 | XMS_ITS | Encounter Summary ---
Author Organization [employer] Address [address] [place] [address] Care Team Providers Care Administration Intern Name Role Phone Provider, Not In System Primary Care Provider Un available Encounter Details Date Type Department Care Team (Late st Contact Info) Description 06/23/2021 Transcribed Document [facility] [address] [place] [address] Seth Helm MD [address] [place] [address] [address] [id number] Social History Tobacco Use Types Packs/Day Years [...] Note - Seth Helm MD - 06/23/2021 12:59 PM EDT CLINICAL DOCUMENTATION CLARIFICATION FORM: Dear : Mariano Helm Date 06/23/21 Please exercise your independent, professional judgment in responding to the clarification form. Clinical indicators are provided on the bottom of this form for your review The diagnosis of Sepsis was documented in the following provider note(s) Urology on 06/22/21 (date). Based on your Medical Judgement, would you please clarify in the medical record Please check appropriate box(es): [ ] This diagnosis is not confirmed and has been ruled out. [ x ] This diagnosis is confirmed (please add additional supporting information to the medical record) [ ] Other diagnosis [ ] Unable to determine To be completed by CDI/Coding staff for physician review: Present Clinical Indicators - Signs / Symptoms / Labs Results and Location in Medical Record [ xx ] Sepsis 06/22 Urology: Obstructing ureteral stone with UTI, Sepsis [ xx ] Acute UTI without sepsis 06/22 H&P: Ureteral stone , acute UTI without sepsis [xx] Fever 06/22 Vitals: Fever 103 [xx] Elevated HR 06/22 Vitals: HR 98-100 Present Risk Factors Results and Location in Medical Record [ xx ] Acute UTI 06/22 H&P: Acute UTI, Purulent drainage of the infected kidney, + Enterococcus [ xx ] Ureteral stone 06/22 H&P: Obstructing ureteral stone Present Treatments Results and Location in Medical Record [xx ] Ureteral stent 06/21 SX: Ureteral stent placed [xx ] IV Antibiotics 06/21 Orders: Rocephin, Levaquin [ xx ] IVF 06/21 Orders: 06/21 NS @ 125ml/hr CDS/Signature: Greta Santos RN CDS Phone #: __[phone] This is a permanent part of the Medical Record Q2019 [facility] [place]: 03/2020 documented in this encounter Plan of Treatment Not on file documented as of this encounter Visit Diagnoses Not on filedocumented in this encounter Care Teams Administration Intern Relationship Specialty Start Date End Date Provider, Not In System [place] PCP - General 01/05/23 documented as of this encounter
--- OUTSIDE RECORDS SUMMARY | 2024-08-17 08:50 | XMS_ITS | Data Portability ---
Author Organization [facility] Tyler Torrey rascon, [place] [facility] Address [address] [place] [address] Care Team Providers Care Play Reader Name Role Phone Seeder Primary Care Provider Assessment No assessment recorded. Plan of Treatment Reminders Order Date Submit Date Provider Last Modified By Organization Details Last Modified Time Details Appointments None recorded. Lab urinalysis microscopic panel, automated 2021 022 [email or web address] [facility] [address], [address], [place], [address], 14:23:44 Referral None recorded. Procedures None recorded. Surgeries None recorded. Imaging None recorded. Medication Orders None recorded. Patient TargetsNo targets recorded. Patient Instructions Encounter Date Encounter Id Patient Instructions Last Modified By Organization Details Last Modified Time 07/06/2021 [id number] Returns after urgent stent placement for UTI and 10 mm stone left UPJ. Reportedly she also has an 8 mm left renal stone. She has done very well and remained free of fever or other symptoms. She has completed her antibiotics. We have discussed options for her residual stone disease at length, stent is still present and treatment as necessary in near future. We decided to proceed with ESWL of her left renal calculi with concomitant cystoscopy and stent removal if it appears that the stone fragments well. Also reportedly, she had had a renal lesion most likely felt to be consistent with a cyst in her right kidney. We will try to obtain these records for further review. alesia Not available 07/06/2021 14:24:35 01/15/2023 [id number] Now comfortable and stable, she completed full course of antibiotics. She has no fever or other problems and is fortunately tolerating stent well. Referral made to Dr. [facility] with [facility] and arrangements for likely stone procedure We will have her now carry out 24-hour [employer] [email or web address] Not available 01/15/2023 15:20:36 Reason for Referral None Reported. Results Created Date Observation Date Name Description Value Unit Range Abnormal Flag Note LastModifiedBy Organization Detail LastModifiedTime 07/07/19 22 07/06/2021 urina lysis micro scopi c panel , autom ated Unknown Analyte Clean Catch Not Available [facility] [address] [place], [address], 07/06/2021 13:54:19 07/07/19 22 07/06/2021 urina lysis micro scopi c panel , autom ated Unknown Analyte Yellow Not Available [facility] [address], [address], 07/06/2021 13:54:19 07/07/19 22 07/06/2021 urina lysis micro scopi c panel , autom ated Unknown Analyte Clear Not Available [facility] [address] [place], [address], 07/06/2021 13:54:19 07/07/19 22 07/06/2021 urina lysis micro scopi c panel , autom ated Unknown Analyte 1.010 Not Available [facility] [address] [place], [address], 07/06/2021 13:54:19 07/07/19 22 07/06/2021 urina lysis micro scopi c panel , autom ated Unknown Analyte 6.0 Not Available [facility] [address] [place], [address], 07/06/2021 13:54:19 07/07/19 22 07/06/2021 urina lysis micro scopi c panel , autom ated Unknown Analyte [address] (++) Not Available [facility] [address] [facility], [place], [address], 07/06/2021 13:54:19 07/07/19 22 07/06/2021 urina lysis micro scopi c panel , autom ated Unknown Analyte Negati ve Not Available [facility] [address] [place], [address], 07/06/2021 13:54:19 07/07/19 22 07/06/2021 urina lysis micro scopi c panel , autom ated Unknown Analyte Negati ve Not Available [facility] [address] [facility], [place], [address], 07/06/2021 13:54:19 07/07/19 22 07/06/2021 urina lysis micro scopi c panel , autom ated Unknown Analyte Normal Not Available [facility] [address] [place], [address], 07/06/2021 13:54:19 07/07/19 22 07/06/2021 urina lysis micro scopi c panel , autom ated Unknown Analyte Negati ve Not Available [facility] [address] [place], [address], 07/06/2021 13:54:19 07/07/19 22 07/06/2021 urina lysis micro scopi c panel , autom ated Unknown Analyte Normal Not Available [facility] [address] [place], [address], 07/06/2021 13:54:19 07/07/19 22 07/06/2021 urina lysis micro scopi c panel , autom ated Unknown Analyte Negati ve Not Available [facility] [address] [place], [address], 07/06/2021 13:54:19 07/07/19 22 07/06/2021 urina lysis micro scopi c panel , autom ated Unknown Analyte 250 Zane/ul Not Available [facility] [address] [facility], [place], [address], 07/06/2021 13:54:19 07/07/19 22 07/06/2021 urina lysis micro scopi c panel , autom ated Unknown Analyte AUTO Not Available [facility] [address] [facility], [place], [address], 07/06/2021 13:54:19 07/07/19 22 07/06/2021 urina lysis micro scopi c panel , autom ated Unknown Analyte Occ Not Available [facility] [address] [place], [address], 07/06/2021 13:54:19 07/07/19 22 07/06/2021 urina lysis micro scopi c panel , autom ated Unknown Analyte None Seen Not Available [facility] [address] [place], [address], 07/06/2021 13:54:19 07/07/19 22 07/06/2021 urina lysis micro scopi c panel , autom ated Unknown Analyte None Seen Not Available [facility] [address] [place], [address], 07/06/2021 13:54:19 07/07/19 22 07/06/2021 urina lysis micro scopi c panel , autom ated Unknown Analyte None Seen Not Available [facility] [address] [facility], [place], [address], 07/06/2021 13:54:19 08/22/19 22 08/21/2021 XR, abdom en, 1 view No observ ation record ed. [facility] Scheduling [address], [place], [address], 08/21/2021 16:52:36 10/12/1910/11/2021 CT, abdom en + pelvi s, w/o contr ast No observ ation record ed. [email or web address] [facility] [address], [place], [address], 10/24/2021 17:19:05 Result Notes None recorded. Procedures Surgical History Date Name Laterality Status Provider Name and Address Organization Details Recorded Time Tonsillectomy completed Trista Riki [facility] 07/06/2021 13:51:23 Tubal Ligation completed Trista Riki [place] [facility] 07/06/2021 13:51:28 augmentation mammoplasty completed Trista Riki [place] [facility] 07/06/2021 13:51:43 Kidney Stone Removal completed Trista Riki [place] [facility] 07/06/2021 13:52:08 [facility] 07/06/2021 13:52:12 Imaging Results None recorded. Procedure Notes None recorded. Medical Equipment None Reported. Allergies No known drug allergies Medications Name Sig Start Date Stop Date Status Note LastModified by Organization Details LastModified Time ibuprofen 800 mg tablet TAKE 1 TABLET BY MOUTH EVERY 8 HOURS NEEDED FOR PAIN active Not Available Not Available No t Available hydrocodone 5 mg-acetaminop hen 325 mg tablet TAKE 1 TABLET BY MOUTH EVERY 6 HOURS NEEDED FOR PAIN active Not Available Not Available No t Available phentermine 37.5 mg tablet TAKE 1 TABLET BY MOUTH EVERY DAY active Not Available Not Available No t Available trazodone 100 mg tablet TAKE 1 TABLET BY MOUTH TWICE A DAY active Not Available Not Available No t Available levothyroxine 50 mcg tablet TAKE 1 TABLET BY MOUTH EVERY DAY IN THE MORNING ON EMPTY STOMACH active Not Available Not Available No t Available mupirocin 2 % topical ointment APPLY TOPICALLY TWICE A DAY active Not Available Not Available No t Available norethindrone acetate 5 mg tablet TAKE 1 TABLET BY MOUTH EVERY DAY active Not Available Not Available No t Available cefuroxime axetil 500 mg tablet TAKE 1 TABLET BY MOUTH TWICE A DAY FOR 5 DAYS active Not Available Not Available No t Available progesterone micronized 100 mg capsule TAKE 1 CAPSULE BY MOUTH AT BEDTIME active Not Available Not Available No t Available duloxetine 20 mg capsule,delay ed release TAKE 1 CAPSULE BY MOUTH EVERY DAY FOR 10 DAYS, THEN STOP THE MEDICINE active Not Available Not Available No t Available desvenlafaxin e succinate ER 50 mg tablet,extend ed release 24 hr TAKE 1 TABLET BY MOUTH EVERY DAY active Not Available Not Available No t Available topiramate XR 25 mg capsule sprinkle,exte nded release 24 hr TAKE 1 CAPSULE BY MOUTH EVERY DAY active Not Available Not Available No t Available duloxetine 40 mg capsule,delay ed release TAKE 1 CAPSULE BY MOUTH EVERY DAY active Not Available Not Available No t Available Vraylar 3 mg capsule TAKE 1 CAPSULE BY MOUTH EVERY DAY active Not Available Not Available No t Available Vitals Date Recorded Body height Body mass index (BMI) Body weight Provider Name and Address Organization Details Last Updated DateTime 07/06/2021 167.64 cm 32.3 kg/m2 28258.47 g Trista Lyn [facility] 07/06/2021 13:48:48 Date Recorded Body weight Body mass index (BMI) Body height Provider Name and Address Organization Details Last Updated DateTime 01/15/2023 52273.47 g 32.3 kg/m2 167.64 cm Mara Jessica [facility] 01/15/2023 15:00:14 Social History Question Answer Notes LastModified by [employer] Details LastModified Time Tobacco Smoking Status [facility] 13:49:24 What Is Your Relationship Status? Information not available 07/06/2021 Sex: Unknown Functional Status Question Answer Note LastModified by [employer] Details LastModified Time What is your level of alcohol consumption? Occasional Information not available 07/06/2021 Mental Status None recorded. Family History Relationship Description Onset Age of this Age Resolved Age Notes LastModified by Organization Details LastModified Time Father Diabetes mellitus Not available 2021 13:49:06 Father Kidney stone Not availab le 07/06/2021 13:49:09 Mother Hypertensive disorder Not available 2021 13:49:16 Medical History Condition Response Anxiety Disorder Y Kidney Stones Y Depression Y Gynecological HistoryNo gynecological history recorded. Obstetrics History GPAL:G 0 P 0 0 0 0 Past Encounters Encounter ID Performer Location Encounter Start Date Encounter Closed Date Diagnosis/Indication Diagnosis SNOMED-CT Code Diagnosis ICD10 Code Diagnosis Note [id number] ANDREA BAILEY MD [facility] [address] [place] [address] 07/06/2021 13:20:00 07/06/2021 14:30:59 Kidney stone 75498786 N20.0 Acute urin pradeep tract infection 318627766 N39.0 Resolved [id number] ANDREA BAILEY MD UROLOGY [facility] [address] [place] [address] 01/15/2023 14:54:41 01/15/2023 15:22:24 Kidney stone 10340681 N20.0 Acute urin pradeep tract infection 845505270 N39.0 Resolved Health Concerns Section Related Observation LastModified by Organization Detai ls LastModified Time None Recorded Concern Status LastModified by Organization Details LastModified Time None Recorded Advance Directives Directive None Recorded Payers Insurance Date Sequence Insurance Name Policy Number Policy Patel Covered Member ID Patel Member ID Guarantor Name 01/15/2023 1 [facility] (MEDICAID REPLACEMENT - HMO) [facility] Venecia Zuly [id number] Venecia Caruso 06/27/2021 1 *SELF PAY* Deana Caruso Notes Date Note Type Note Provider Name and Address Organization Details Recorded Time 07/06/2021 text/html 56 yo female returns for a 2 wk hospital f/u seen in consultation due to a large left ureteral stone and UTI-s/p Cystoscopy w stent placement. She has now completed Levaquin and denies recent fever or chills. She does have a h/o kidney stones requiring stent placement in [place] last year. She denies recent flank pain or gross hematuria. ANDREA BAILEY MD [facility] [place], [address], [facility] 07/06/2021 14:24:46 01/15/2023 text/html 57 yo female her e today for follow up s/p cysto with left stent insertion on 11/[address] Dougherty for an infected 7 mm left ureteral stone. This is her third year in a row with a similar presentation. She was treated with ESWL a year ago. She is doing well. She has no complaints or concerns today. She denies any dysuria or gross hematuria. ANDREA BAILEY MD [facility] [place], [address], [facility] 01/15/2023 15:20:52 OBGyn Episode No OBEpisode recorded.
--- OUTSIDE RECORDS SUMMARY | 2024-08-17 08:50 | XMS_ITS | Encounter Summary ---
Author Organization [employer] [email or web address] Address [address] [place] [address] Care Team Providers Care Plate Maker Name Role Phone Provider, Not In System Primary Care Provider Un available Encounter Details Date Type Department Care Team (Late st Contact Info) Description 06/22/2021 Transcribed Document [facility] [place] [facility] [address] ProviderAilyn MD [address] [place] [address] Social History Tobacco Use Types [...] Conversion Note - Ailyn ProviderMD - 06/22/2021 10:03 AM CDT Patient: VENECIA NAGY Age: 56 Years Sex: Female : 1965 progress note POD #1 She said through the night was difficult due to fever to 102, feels much better this morning with current temp 100.1 Alert and sitting up and in no distress Impression-obstructing proximal left ureteral stone with sepsis, stented with purulent drainage around stent. Should improve promptly. I would recommend repeat dose of Rocephin today and would consider dismissal tomorrow on a quinolone antibiotic. We will plan stone extraction in 2 to 3 weeks Electronically signed by Gayle Villanueva Conversion Retail Merchandiser Technician Cerner at 06/17/2022 9:49 AM CDT documented in this encounter Plan of Treatment Not on file documented as of this encounter Visit Diagnoses Not on filedocumented in this encounter Care Teams Plate Maker Relationship Specialty Start Date End Date Provider, Not In System [place] PCP - General 01/05/23 documented as of this encounter
--- OUTSIDE RECORDS SUMMARY | 2024-08-17 08:50 | XMS_ITS | Encounter Summary ---
Author Organization [employer] [facility] Address [address] [place] [address] Care Team Providers Care Director Systems Name Role Phone Provider, Not In System Primary Care Provider Un available Encounter Details Date Type Department Care Team (Late st Contact Info) Description 06/22/2021 Transcribed Document [facility] [place] [facility] [place] [address] ProviderAilyn MD [address] [place] [address] [id number] Social History Tobacco Use Types Packs/Day Years [...] Conversion Note - Ailyn Cavazos MD - 06/22/2021 3:05 PM CDT Patient Resource Center Entered On: 06/22/2021 15:07 EDT Performed On: 06/22/2021 15:05 EDT by Alycia Ross COMPUTER INSTALLER Patient Resource Center Provider Status : No Assigned Primary Care Established Provider Name : NO pcp Patient Phone Number : [phone] Patient Insurance Type : Self pay Source of Referral : Case management Location of Patient : Case management referral Primary Care Scheduled : No Specialty Care Scheduled : No Qualify for Diabetes and/or Nutrition Referral : No Wound Care Appointment Made : No Why Patient Visited ED- Specialty spent : Other How Patient Arrived at ED : Other Primary Language : [place] Island[place] Patient Resource Center Comment : Patient needed new primary care follow up appt. Patient wanted to wait to make an appt. Listed some offices near by her home and my phone number if she needs anything on the DC. Follow Up Needed : No Alycia Ross, COMPUTER INSTALLER - 06/22/2021 15:05 EDT Electronically signed by Rich [facility] Conversion Safety Attendant Cerner at 06/17/2022 9:39 AM CDT documented in this encounter Plan of Treatment Not on file documented as of this encounter Visit Diagnoses Not on filedocumented in this encounter Care Teams Director Systems Relationship Specialty Start Date End Date Provider, Not In System [place] PCP - General 01/05/23 documented as of this encounter
--- OUTSIDE RECORDS SUMMARY | 2024-08-17 08:50 | XMS_ITS | Encounter Summary ---
Author Organization [employer] Address [address] [place] [address] Care Team Providers Care Steel Molder Name Role Phone Provider, Not In System Primary Care Provider Un available Encounter Details Date Type Department Care Team (Late st Contact Info) Description 09/10/2021 Transcribed Document [facility] [place] [facility] [place] [address] ProviderAilyn MD [address], [place] [phone] Social History Tobacco Use Types Packs/Day Years [...] Conversion Note - Ailyn ProviderMD - 09/10/2021 8:02 PM CDT Patient: VENECIA NAGY Age: 56 years Sex: Female : 1965 Associated Diagnoses: Facial cellulitis Author: MYLENE BONE APRN Basic Information Additional information: Chief Complaint from Nursing Triage Note : Chief Complaint 09/10/2021 17:41 EDT Chief Complaint Pt c/o poss abscess on the left side of face w/pain, redness and swelling radiating under the eye. Pt was seen at [facility] yesterday and was told it was cellulitis . History of Present Illness The patient presents with abscess. The onset was 5 days ago. The course/duration of symptoms is worsening. Location: Left face. The character of symptoms is redness and swelling. The degree of symptoms is moderate. Risk factors consist of none. Prior episodes: none. Therapy today: prescription medications including keflex. Associated symptoms: none. Patient is 57-year-old female with past history of LIZZY and kidney stones presented today with complaint of abscess on her left face since 5 days ago. Patient states noticed a small dot on her left cheek that progressively been painful, red and swollen in the past few days. Patient was at [facility] ER, was prescribed Keflex for cellulitis. She noticed increasing swelling this morning and decided to seek care at our ER. She denies fever chills Review of Systems Constitutional symptoms: No fever, no chills, no decreased activity. Skin symptoms: Lesion, No rash, Eye symptoms: Vision unchanged. ENMT symptoms: No sore throat, Respiratory symptoms: No shortness of breath, no cough. Cardiovascular symptoms: No chest pain, no syncope. Gastrointestinal symptoms: No abdominal pain, no vomiting, no diarrhea. Genitourinary symptoms: No dysuria, Musculoskeletal symptoms: No back pain, Neurologic symptoms: No headache, no dizziness, no altered level of consciousness. Psychiatric symptoms: No anxiety, Endocrine symptoms: No polyuria, Hematologic/Lymphatic symptoms: Bleeding tendency negative, Allergy/immunologic symptoms: No recurrent infections, Health Status Allergies: Allergic Reactions (Selected) No Known Allergies. Medications: (Selected) Inpatient Medications Ordered Felton 7.5 mg-325 mg oral tablet: 1 Tab, Oral, 1-Time Prescriptions Prescribed Percocet 5/325 oral tablet: 1 Tab, Oral, 1-Time, PRN: Pain (Moderate 4-6), 24 Tab, 0 Refill(s) Documented Medications Documented Multiple Vitamins oral tablet: 1 Tab, Oral, Daily, 30 Tab, 0 Refill(s) Vitamin C 500 mg oral tablet: 1 Tab, Oral, Daily, 0 Refill(s). Immunizations: Per nurse's notes. Menstrual history: Per nurse's notes. Past Medical/ Family/ Social History Medical history Reviewed as documented in chart. Surgical history: . tubal ligation. tonsilectomy. adenoiectomy. left ureteral stent placement., Reviewed as documented in chart. Family history: No family history items have been selected or recorded., Reviewed as documented in chart. Social history: Social & Psychosocial Habits Alcohol 06/21/2021 Alcohol Use History, Social Habits Yes Days Per Week of Alcohol Use 2 08/14/2021 Alcohol Use History, Social Habits Yes Alcohol Use Frequency Socially Substance Abuse 08/14/2021 Recreational Drug Use History No Recreational Drug Use Last 12 Months No Tobacco 06/21/2021 Smoking Status Never (less than 100 in l Smokeless Tobacco Status Never 08/14/2021 Smoking Status Never (less than 100 in l , Reviewed as documented in chart. Problem list: Active Problems (4) COVID History of obstructive sleep apnea Kidney stone Sleep apnea . Physical Examination Vital Signs Vital Signs/Vital Measures 09/10/2021 17:41 EDT Systolic Blood Pressure 145 mmHg HI Diastolic Blood Pressure 93 mmHg HI Temperature Source Oral Temperature Mode Fahrenheit Temperature, Fahrenheit 98.5 Deg F Clinical Temperature, C 36.9 Deg C Peripheral Pulse Rate 72 bpm Respiratory Rate 18 Breaths/Min Oxygen Saturation 99 % Oxygen Therapy Mode Room air . Measurements 09/10/2021 17:41 EDT Height Source Stated Height Entry Format Lane Height/Length, BRUNEIAN (ft) 5 ft Height/Length BRUNEIAN 6 Inch CLINICALHEIGHT 167.64 cm Sims Body Weight 58.88 kg Weight Source, ED Critical estimated dosing weight Weight Entry Format Lane Weight Macedonian lb 200 lb CLINICALWEIGHT 90.91 kg Body Surface Area (BSA) 2 m2 Body Mass Index 32.3 kg/m2 HI . Oxygen Saturation 09/10/2021 17:41 EDT Oxygen Saturation 99 % . General: Alert, no acute distress. Skin: Warm. Head: Normocephalic, , Swelling and redness over left zygomatic arch and under the left eye. Neck: Supple. Eye: Pupils are equal, round and reactive to light, extraocular movements are intact, Sclera: not icteric. Ears, nose, mouth and throat: Oral mucosa moist. Cardiovascular: Regular rate and rhythm, No murmur, Normal peripheral perfusion, No edema. Respiratory: Lungs are clear to auscultation, respirations are non-labored, breath sounds are equal. Chest wall: No tenderness. Back: Nontender. Gastrointestinal: Soft, Nontender, Non distended, Normal bowel sounds. Neurological: No focal neurological deficit observed. Lymphatics: No lymphadenopathy. Psychiatric: Cooperative. Medical Decision Making Differential Diagnosis:: Abscess, cellulitis. Orders Include Previous Orders (Selected) Inpatient Orders Ordered Felton 7.5 mg-325 mg oral tablet: 1 Tab, Oral, 1-Time Ordered (Collected) Culture Blood: Culture Blood: Completed .Automated Differential: CBC w/ Auto Diff: CMP Comprehensive Metabolic Panel: CT Max Facial Area W: Lactic Acid Level with Reflex if Indicated: Sodium Chloride 0.9% bolus: 1,000 mL, 1,000 mL/Hr, IV Piggyback, 1-Time Zofran: 4 mg, IV Push, 1-Time clindamycin: 600 mg, 50 mL, 100 mL/Hr, IV Piggyback, 1-Time morphine: 4 mg, IV Push, 1-Time Discontinued ondansetron: 4 mg, Oral, 1-Time. Results review: Lab results : Lab Results 09/10/2021 18:02 EDT Sodium Level 138 mmol/L Potassium Level 4.0 mmol/L Chloride Level 105 mmol/L Carbon Dioxide Level 24 mmol/L Anion Gap 13 Glucose Level 108 mg/dL HI Blood Urea Nitrogen 16 mg/dL Creatinine Level 0.83 mg/dL eGFR >60 mL/min/1.73m2 eGFR NonAfrican >60 mL/min/1.73m2 Bun/Creatinine 19.3 Calcium Level 9.4 mg/dL Protein Total 7.7 Gram/dL Albumin Level 3.9 Gram/dL Globulin 3.8 Gram/dL A/G Ratio 1.0 LOW Bilirubin Total 0.5 mg/dL Alk Phos 99 Units/Liter AST 40 Units/Liter HI ALT 92 Units/Liter HI Lactic Acid Level 1.2 mmol/L WBC 11.2 K/uL HI RBC 4.76 Million/uL Hgb 14.0 Gram/dL Hct 41.8 % MCV 87.8 fL MCH 29.4 pg MCHC 33.5 Gram/dL Platelet Count 286 K/uL MPV 8.9 fL LOW RDW 13.9 % Neut % 54.6 % Neut # 6.12 K/uL Lymph % 36.2 % Lymph # 4.06 K/uL HI [place] % 7.2 % [place] # 0.81 K/uL Eos % 1.4 % Eos # 0.16 K/uL Baso % 0.4 % Baso # 0.05 K/uL Slide Review No IG# 0 x10(3)/uL IG% 0 % . Radiology results: Radiology Results (Last 48 hours) [id number] -- 09/10/2021 17:03 CT Max Facial Area W (09/10/2021 19:04) Result: FACE CT WITH IV CONTRAST 09/10/2021 6:04 PM HISTORY:Left facial swelling.COMPARISON:None.TECHNIQUE:Multiple axial CT sections were performed through the face with IVcontrast. Coronal reconstruction images were performed. This study wasperformed with techniques to keep radiation doses as low as reasonablyachievable, (ALARA). Individualized dose reduction techniques usingautomated exposure control or adjustment of mA and/or kV according tothe patient size were employed.FINDINGS:Facial bones, bony orbits and optic globes:No displaced facial bone fractures. No orbital fractures. The opticglobes are unremarkable and symmetric.Paranasal sinuses, nasal passages and mastoid air cells:The paranasal sinuses and mastoid air cells are clear.Soft tissues:Left facial soft tissue swelling. No drainable fluid collection tosuggest abscess.IMPRESSION:Left facial swelling, probably cellulitis. No abscess.Images personally reviewed, interpreted and dictated by Jose Antonio Lipscomb . Reexamination/ Reevaluation Time: 09/10/2021 20:03:00 . Vital signs per nurse's notes Notes: Discussed with patient diagnostic test results, differential diagnosis of the symptoms, treatment plan treatment plan, in detail adviseds, advised follow-up with primary care physician for further evaluation and management, also give patient specific instruction to return to the emergency department, if symptoms worsens. Impression and Plan Diagnosis Facial cellulitis - Discharge, Medical Plan Condition: Stable. Disposition: Discharged Admit/Transfer/Discharge: Discharge (Order): Start: 09/10/2021 20:03 EDT, Discharge to: Home. Prescriptions: Prescription Field Service Specialist Pharmacy: doxycycline hyclate 100 mg oral tablet (Prescribe): 1 Tab, Oral, Daily, for 10 Day(s), 10 Tab, 0 Refill(s). Patient was given the following educational materials: Cellulitis, Adult. Follow up with: ELEONORA BARAHONA Within 2 to 3 days; [facility] (Find a Doc) Within 2 to 3 days Call in the AM with your primary healthcare provider, return to ER for worsening of pain swelling, fever, nausea Take antibiotics as prescribed Continue taking your Keflex, will add doxycycline as a second antibiotic ; Return to emergency department Within 2 to 3 days. Counseled: Patient, Regarding diagnosis, Regarding diagnostic results, Regarding treatment plan, Regarding prescription, Patient indicated understanding of instructions. Addendum Teaching-Supervisory Addendum-Brief Notes: Based on the medical record the care appears appropriate.. Electronically signed by [facility] Conversion Fund Manager Cerner at 06/17/2022 10:05 AM CDT documented in this encounter Plan of Treatment Not on file documented as of this encounter Visit Diagnoses Not on filedocumented in this encounter Care Teams Steel Molder Relationship Specialty Start Date End Date Provider, Not In System [place] PCP - General 01/05/23 documented as of this encounter
--- OUTSIDE RECORDS SUMMARY | 2024-08-17 08:50 | XMS_ITS | Encounter Summary ---
Author Organization [employer] Address [address] [place] [address] Care Team Providers Care Front Desk Officer Name Role Phone Provider, Not In System Primary Care Provider Un available Encounter Details Date Type Department Care Team (Late st Contact Info) Description 09/10/2021 Transcribed Document [facility] [place] [facility] [place] [address] ProviderAilyn MD [address] [place], [place] [phone] Social History Tobacco Use Types Packs/Day Years [...] Ailyn ProviderMD - 09/10/2021 5:03 PM CDT ED Triage Entered On: 09/10/2021 17:43 EDT Performed On: 09/10/2021 17:41 EDT by Kelvin Moss rubber worker Triage Across the Room Chief Complaint : Pt c/o poss abscess on the left side of face w/pain, redness and swelling radiating under the eye. Pt was seen at [facility] yesterday and was told it was cellulitis Triage Date/Time : 09/10/2021 17:41 EDT Kelvin Moss Rn - 09/10/2021 17:41 EDT DCP GENERIC CODE Tracking Acuity : 3 - Urgent Tracking Group : [facility] Kelvin Moss Rn - 09/10/2021 17:41 EDT Mode of Arrival : Ambulatory Transported to ED by : Private vehicle To Room Via : Ambulate Accompanied By : Unaccompanied ED Vital Signs : Document Height & Weight : Document ED Allergies : Document ED Reason for Visit : Document Kelvin Moss Rn - 09/10/2021 17:41 EDT Infectious Disease History Does patient have symptoms of COVID-19? : No Tested for COVID19 in the past 14 days : No, Patient stated Does the Patient state known exposure to a COVID-19 positive case in the last 14 days? : No Patient Vaccinated for COVID-19 : Fully vaccinated Kelvin Moss Rn - 09/10/2021 17:41 EDT Infectious Disease Risk Screening Grid Cough < 2 wks of unknown origin : NO Cough > 2 weeks : NO Blood in Sputum : NO Fever or self-reported Fever : NO Rash of unknown origin : NO Headache : NO Stiff neck : NO Night Sweats : NO Unexplained Weight Loss : NO Diarrhea (3 episode per day) : NO Kelvin Moss Rn - 09/10/2021 17:41 EDT Physical contact outside [place] in the last 30 days : No Hospitalized in Foreign Country : No Infectious Disease History : None INF Disease TB Screening Calc : 0 INF Disease Recent Travel Calc : 0 Kelvin Moss Rn - 09/10/2021 17:41 EDT Vital Signs ED Temperature Source : Oral Temperature Mode : Fahrenheit Temperature, Fahrenheit : 98.5 Deg F Clinical Temperature, C : 36.9 Deg C Oxygen Therapy Mode : Room air Peripheral Pulse Rate : 72 bpm Respiratory Rate : 18 Breaths/Min Systolic Blood Pressure : 145 mmHg (HI) Diastolic Blood Pressure : 93 mmHg (HI) Oxygen Saturation : 99 % Kelvin Moss Rn - 09/10/2021 17:41 EDT Allergy (As Of: 09/10/2021 17:43:54 EDT) Allergies (Active) No Known Allergies Estimated Onset Date: Unspecified ; Created By: Toni Charles RN-PATIENT CARE BEDSIDE NON-EXEMPT; Reaction Status: Active ; Category: Drug ; Substance: No Known Allergies ; Type: Allergy ; Updated By: Toni Charles RN-PATIENT CARE BEDSIDE NON-EXEMPT; Reviewed Date: 09/10/2021 17:43 EDT Diagnosis Control ED (As Of: 09/10/2021 17:43:54 EDT) Problems(Active) COVID (SNOMED CT :1814684318 ) Name of Problem: COVID ; Recorder: Alena Flores Rn; Confirmation: Confirmed ; Classification: Medical ; Code: [id number] ; Contributor System: MADS ; Last Updated: 08/14/2021 12:12 EDT ; Life Cycle Date: 08/14/2021 ; Life Cycle Status: Active ; Vocabulary: SNOMED CT History of obstructive sleep apnea (IMO :19176073 ) Name of Problem: History of obstructive sleep apnea ; Recorder: SYSTEM, SYSTEM; Confirmation: Confirmed ; Classification: Medical ; Code: [id number] ; Last Updated: 06/21/2021 13:23 EDT ; Life Cycle Date: 06/21/2021 ; Life Cycle Status: Active ; Vocabulary: IMO Kidney stone (SNOMED CT :551380070 ) Name of Problem: Kidney stone ; Recorder: Ivonne Heredia RN; Confirmation: Confirmed ; Classification: Medical ; Code: [id number] ; Contributor System: MADS ; Last Updated: 06/21/2021 13:09 EDT ; Life Cycle Date: 06/21/2021 ; Life Cycle Status: Active ; Vocabulary: SNOMED CT Sleep apnea (SNOMED CT :318286053 ) Name of Problem: Sleep apnea ; Recorder: Ivonne Heredia RN; Confirmation: Confirmed ; Classification: Medical ; Code: [id number] ; Contributor System: MADS ; Last Updated: 06/21/2021 13:08 EDT ; Life Cycle Date: 06/21/2021 ; Life Cycle Status: Active ; Vocabulary: SNOMED CT Diagnoses(Active) Abscess - complicated Date: 09/10/2021 ; Diagnosis Type: Reason For Visit ; Confirmation: Complaint of ; Clinical Dx: Abscess - complicated ; Classification: Medical ; Clinical Service: Emergency medicine ; Code: PNED ; Probability: 0 ; Diagnosis Code: [id number] ED Height and Weight Height Source : Stated Height Entry Format : [place] Height, Feet : 5 ft(Converted to: 152 cm, 60 Inch) Height, Inches : 6 Inch(Converted to: 0 ft 6 Inch, 15.24 cm) Clinical Height : 167.64 cm Weight Source, ED : Critical estimated dosing weight Weight Entry Format : [place] Weight, Pounds : 200 lb Clinical Dosing Weight : 90.91 kg Body Surface Area (BSA) : 2 m2 Body Mass Index : 32.3 kg/m2 (HI) [place] Body Weight (IBW) : 58.88 kg Kelvin Moss Rn - 09/10/2021 17:41 EDT Electronically signed by Gayle Villanueva Conversion Associate Professor Of Kinesiology Cerner at 06/17/2022 10:05 AM CDT documented in this encounter Plan of Treatment Not on file documented as of this encounter Visit Diagnoses Not on filedocumented in this encounter Care Teams Front Desk Officer Relationship Specialty Start Date End Date Provider, Not In System [place] PCP - General 01/05/23 documented as of this encounter
--- OUTSIDE RECORDS SUMMARY | 2024-08-17 08:50 | XMS_ITS | Encounter Summary ---
Author Organization [employer] Address [address] [place] [address] Care Team Providers Care Bolt Maker Name Role Phone Provider, Not In System Primary Care Provider Un available Encounter Details Date Type Department Care Team (Late st Contact Info) Description 09/10/2021 Transcribed Document [facility] [place] [facility] [place] [address] ProviderAilyn MD [address] [place], [place] [phone] Social History Tobacco Use Types Packs/Day Years [...] ProviderMD - 09/10/2021 5:03 PM CDT ED Assessment Entered On: 09/10/2021 18:38 EDT Performed On: 09/10/2021 18:38 EDT by Shirley Mcgrath, BUSINESS RESILIENCY MANAGER Quick Look Assessment Level of Consciousness : Alert, Awake Affect/Behavior : Appropriate, Calm, Cooperative Orientation : Oriented x 4 Skin Temperature : Warm Skin Description : Normal for ethnicity, [place] Shirley Mcgrath RN - 09/10/2021 18:38 EDT ED General-Functional Assess Information Obtained From : Patient Communication Barrier : None Primary Language : Angolan Any Spiritual/Cultural Needs or Requests : No Currently in Unsafe Situation : No Shirley Mcgrath RN - 09/10/2021 18:38 EDT Social Habits Smoking Status : Never (less than 100 in lifetime; none in last 30 days) Smokeless Tobacco Status : Never Desires Tobacco Cessation Calc : 0 Shirley Mcgrath RN - 09/10/2021 18:38 EDT Social History (As Of: 09/10/2021 18:38:37 EDT) Tobacco: Never (less than 100 in lifetime) Smoking Status. Never Smokeless Tobacco Status. (Last Updated: 06/21/2021 13:12:41 EDT by Ivonne Heredia, MANUELITO) Never (less than 100 in lifetime) Smoking Status. (Last Updated: 08/14/2021 12:16:40 EDT by Alena Flores, Manuelito) Alcohol: Alcohol Use History Yes. Days/Week: 2. (Last Updated: 06/21/2021 13:12:48 EDT by Ivonne Heredia, MANUELITO) Alcohol Use History Yes. Alcohol Use Frequency Socially. (Last Updated: 08/14/2021 12:16:40 EDT by Alena Flores, Manuelito) Substance Abuse: Drug Use Hx: No. Use in Last 12 Months: No. (Last Updated: 08/14/2021 12:16:40 EDT by Alena Flores, Manuelito) Integumentary Assessment Integumentary Assessment WDL : WDL with exceptions Integumentary Assessment Comment : redness and swelling with scab to left side of face Shirley Mcgrath RN - 09/10/2021 18:38 EDT documented in this encounter Plan of Treatment Not on file documented as of this encounter Visit Diagnoses Not on filedocumented in this encounter Care Teams Bolt Maker Relationship Specialty Start Date End Date Provider, Not In System [place] PCP - General 01/05/23 documented as of this encounter
--- OUTSIDE RECORDS SUMMARY | 2024-08-17 08:51 | XMS_ITS | Encounter Summary ---
Author Organization [employer] Address [address] [place] [address] Care Team Providers Care Telesales Professional Name Role Phone Provider, Not In System Primary Care Provider Un available Encounter Details Date Type Department Care Team (Late st Contact Info) Description 06/23/2021 Transcribed Document [facility] [place] [facility] [place] [address] ProviderAilyn MD [address] [place], [place] [phone] Social History Tobacco Use Types Packs/Day Years [...] Conversion Note - Ailyn ProviderMD - 06/23/2021 5:00 AM CDT Chart Check - Review Order Profile Entered On: 06/23/2021 5:00 EDT Performed On: 06/23/2021 5:00 EDT by Heather Crocker, MANUELITO Chart Check Powerplans Initiated/Discontinued as Appropriate : Yes All Active Orders Reviewed : Yes Heather Crocker RN - 06/23/2021 5:00 EDT Electronically signed by [facility] Conversion Rv Repair Technician Andrew at 06/17/2022 9:44 AM CDT documented in this encounter Plan of Treatment Not on file documented as of this encounter Visit Diagnoses Not on filedocumented in this encounter Care Teams Telesales Professional Relationship Specialty Start Date End Date Provider, Not In System [place] PCP - General 01/05/23 documented as of this encounter
--- OUTSIDE RECORDS SUMMARY | 2024-08-17 08:51 | XMS_ITS | Encounter Summary ---
Author Organization [employer] Address [address] [place] [address] Care Team Providers Care Compound Coating Machine Offbearer Name Role Phone Provider, Not In System Primary Care Provider Un available Encounter Details Date Type Department Care Team (Late st Contact Info) Description 06/21/2021 Transcribed Document [facility] [place] [facility] [place] [address] ProviderAilyn MD [address] [place] [phone] Social History Tobacco Use Types Packs/Day Years [...] Conversion Note - Ailyn Cavazos MD - 06/21/2021 5:10 PM CDT Patient: VENECIA NAGY Age: 56 Years Sex: Female : 1965 *Operation Cystoscopy Stent Insertion, Indication for Surgery This patient presents with an obstructing 10 mm left UPJ stone and urinary tract infection with fever. Plans are made for urgent ureteral stent insertion to achieve drainage of the infected kidney. *Preoperative Diagnosis Left ureteral calculus with UTI *Postoperative Diagnosis Same *Surgeon(s) Primary Surgeon ANDREA BAILEY MD-URO (Surgeon/Proceduralist, First) *Procedure Narrative The patient was brought to the operating room where general anesthesia was induced. Preoperatively IV antibiotics had been administered and antiembolism stockings were placed. She was placed in the lithotomy position and extremities and all pressure points were padded and protected appropriately. A 22 Chilean panendoscope was passed into the bladder and a systematic exam of the bladder was carried out. The left ureter was cannulated with a floppy tip guidewire which was passed up the ureter under fluoroscopic guidance and seen to bypass the stone at the UPJ. The ureteral catheter was passed over the wire into the renal pelvis and the wire was removed. Fluid was obtained and sent for culture from the renal pelvis and was noted to be copious and somewhat cloudy. The wire was reinserted through the ureteral catheter which was exchanged for a 4.8 Chilean by 26 cm double-J ureteral stent. The stent was positioned with a curl in the renal pelvis and bladder with no string exiting urethral meatus. A large amount of murky debris was noted exuding from the ureteral orifice adjacent to the stent. The patient was awakened and transported to postop recovery in stable condition. She is tolerated the procedure very well and there were no complications Drains/Packs Used 4.8 Chilean by 26 cm left double-J ureteral stent with no string attached Anesthesia SUNSHINE Kirby MD-ANS (Anesthesiologist) *Estimated Blood Loss None *Findings Bladder unremarkable, opaque stone noted at the site of the UPJ that only mildly limited passage of the wire and catheter. Cloudy murky fluid drained from the left renal pelvis. Stent was well-positioned with no string attached *Specimen(s) None Complications None Date of Service Date/Time of Service SN - Proc - Start Time: 06/21/21 16:31:00 (06/21/21 16:56:45) documented in this encounter Plan of Treatment Not on file documented as of this encounter Visit Diagnoses Not on filedocumented in this encounter Care Teams Compound Coating Machine Offbearer Relationship Specialty Start Date End Date Provider, Not In System [place] PCP - General 01/05/23 documented as of this encounter
--- OUTSIDE RECORDS SUMMARY | 2024-08-17 08:51 | XMS_ITS | Encounter Summary ---
Author Organization [employer] Address [address] [place] [address] Care Team Providers Care Order Expediter Name Role Phone Provider, Not In System Primary Care Provider Un available Encounter Details Date Type Department Care Team (Late st Contact Info) Description 08/14/2021 Transcribed Document [facility] [place] [address] ProviderAilyn MD [address], [place] [phone] Social History Tobacco Use Types Packs/Day Years Used Date Smoking Tobacco: Never Assessed Comments Unknown Sex and Gender Information Value Date Recorded Sex Assigned at Female 09/27/2021 12:48 PM CDT Legal Sex Female 1:41 PM CDT Gender Identity Female 09/27/2021 12:48 PM CDT Sexual Orientation Not on file documented as of this encounter Miscellaneous Notes * Cerner Conversion Note - Ailyn ProviderMD - 08/14/2021 1:57 PM CDT [facility] Main OR PostOp Summary Primary Physician: ELEONORA BARAHONA MD-URO Finalized Date/Time: 08/14/21 15:57:14 Pt. Name: VENECIA NAGYREGAN /Sex: 1965 Female Med Rec #: [id number] Physician: ELEONORA BARAHONA MD-URO Financial #: [id number] Pt. Type: O Room/Bed: [facility]/4 Admit/Disch: 08/14/21 11:32:00 - Institution: [facility] [place] PostOp Case Times Entry 1 In PACU II 08/14/21 15:10:00 Ready for PACU II 08/14/21 15:40:00 Discharge Discharge from PACU 08/14/21 15:40:00 II Last Modified By: KAL ELIZONDO RN 08/14/21 15:57:08 Finalized By: KAL ELIZONDO, RN Document Signatures Signed By: KAL ELIZONDO RN 08/14/21 15:57 documented in this encounter Plan of Treatment Not on file documented as of this encounter Visit Diagnoses Not on filedocumented in this encounter Care Teams Order Expediter Relationship Specialty Start Date End Date Provider, Not In System [place] PCP - General 01/05/23 documented as of this encounter
--- OUTSIDE RECORDS SUMMARY | 2024-08-17 08:51 | XMS_ITS | Encounter Summary ---
Author Organization [employer] [facility] Address [address] [place] [address] Care Team Providers Care Implementation Coordinator Name Role Phone Provider, Not In System Primary Care Provider Un available Encounter Details Date Type Department Care Team (Late st Contact Info) Description 06/22/2021 Transcribed Document [facility] [place] Family Medicine [facility] [place] [address] ProviderAilyn MD [address] [place], [place] [phone] Social History Tobacco Use Types Packs/Day Years [...] Conversion Note - Ailyn ProviderMD - 06/22/2021 12:27 PM CDT Meds to Bed Enrollment Entered On: 06/22/2021 12:27 EDT Performed On: 06/22/2021 12:27 EDT by Terence Mascorro Phlebotomy Specialist Cert Lead Meds to Bed Enrollment Patient Enrollment Decision: : Yes/enroll in meds to bed program Terence Mascorro Phlebotomy Specialist Cert Lead - 06/22/2021 12:27 EDT documented in this encounter Plan of Treatment Not on file documented as of this encounter Visit Diagnoses Not on filedocumented in this encounter Care Teams Implementation Coordinator Relationship Specialty Start Date End Date Provider, Not In System [place] PCP - General 01/05/23 documented as of this encounter
--- OUTSIDE RECORDS SUMMARY | 2024-08-17 08:51 | XMS_ITS | Encounter Summary ---
Author Organization [employer] Address [address] [place] [address] Care Team Providers Care Ms Sql Developer Name Role Phone Provider, Not In System Primary Care Provider Un available Encounter Details Date Type Department Care Team (Late st Contact Info) Description 06/21/2021 Transcribed Document [facility] [place] Family Medicine [facility] [place] [address] ProviderAilyn MD [address] [place], [place] [phone] Social History Tobacco Use Types Packs/Day Years [...] Conversion Note - Ailyn ProviderMD - 06/21/2021 10:03 PM CDT Admission History, Adult Entered On: 06/21/2021 22:08 EDT Performed On: 06/21/2021 22:03 EDT by Juanita Adams NON EMP RN - [facility] Advance Directive Patient has Advance Directive *Q : No, patient refuses Advance Directive information Juanita Adams NON EMP RN - [facility] - 06/21/2021 22:03 EDT Anesthesia/Transfusion History Family History of Anesthesia Reaction : No prior transfusion(s) Blood Transfusion Acceptable to Patient : No Transfusion History : No prior anesthesia Family History of Anesthesia Reaction : None Bryan SAMANTHA Grant RN - INTERNATIONAL - 06/21/2021 22:03 EDT Functional Assessment Living Situation : Other: lives with brother Current Home Treatments : None Bryan SAMANTHA Grant RN - INTERNATIONAL - 06/21/2021 22:03 EDT General Info Want Family/Rep/Phys Notified of Admit : No Emergency Contact #1 : Gely Emergency Contact #1 Emergency Contact #1 Relationship : Sister Emergency Contact #2 : - Emergency Contact #2 Phone Number : - Emergency Contact #2 Relationship : - Identified Medical Decision Maker : - Primary Language : Martiniquais Communication Barrier : None Hr Business Partner Needed : No Juanita Adams NON EMP RN - INTERNATIONAL - 06/21/2021 22:03 EDT Fall Risk Scales ABCs Fall Injury Risk Identification : Surgery ABC Fall Injury Risk : Moderate to high injury risk CASE Hx Falls Immediate/Within 3 Months : No Case Secondary Diagnosis : Yes CASE Use of Ambulatory Aid : None CASE IV Therapy or IV Access : No Case Gait/Transferring : Normal, bedrest, immobile Case Mental Status : Oriented to own ability Case Fall Risk Score : 15 CASE Fall Scale Risk Level : 0-24 Low Risk [place] Fall Interventions : Adequate lighting, Bed in low position, Call device within reach, Frequent orientation to surroundings, Personal items within reach, Reinforced to call for assistance before getting out of bed, Room free of clutter/spills Juanita Adams NON EMP RN INTERNATIONAL - 06/21/2021 22:03 EDT Health Histories Smoking Status : Never (less than 100 in lifetime; none in last 30 days) Smokeless Tobacco Status : Never Juanita Adams NON EMP RN INTERNATIONAL - 06/21/2021 22:03 EDT Social History (As Of: 06/21/2021 22:08:58 EDT) Tobacco: Never (less than 100 in lifetime) Smoking Status. Never Smokeless Tobacco Status. (Last Updated: 06/21/2021 13:12:41 EDT by Ivonne Heredia, RN) Alcohol: Alcohol Use History Yes. Days/Week: 2. (Last Updated: 06/21/2021 13:12:48 EDT by Ivonne Heredia RN) Height and Weight, Clinical Dosing Height Source : Measured Height Entry Format : [place] Height, Feet : 5 ft(Converted to: 152 cm, 60 Inch) Height, Inches : 6 Inch(Converted to: 0 ft 6 Inch, 15.24 cm) Clinical Height : 167.64 cm Weight Source : Standing scale Weight Entry Format : [place] Clinical Dosing Weight : 95 kg Weight, Pounds : 209 lb Body Surface Area (BSA) : 2.04 m2 Body Mass Index : 33.8 kg/m2 (HI) [place] Body Weight : 59 kg Juanita Adams NON EMP RN [facility] 06/21/2021 22:03 EDT Infectious Disease History Does patient have symptoms of COVID-19? : No Tested for COVID19 in the past 14 days : Yes, Patient stated results Negative Does the Patient state known exposure to a COVID-19 positive case in the last 14 days? : No Patient Vaccinated for COVID-19 : Fully vaccinated Juanita Adams NON EMP [facility] 06/21/2021 22:03 EDT Infectious Disease Risk Screening Grid Cough < 2 wks of unknown origin : NO Cough > 2 weeks : NO Blood in Sputum : NO Fever or self-reported Fever : NO Rash of unknown origin : NO Headache : NO Stiff neck : NO Night Sweats : NO Unexplained Weight Loss : NO Diarrhea (3 episode per day) : NO Juanita Adams NON EMP RN [facility] 06/21/2021 22:03 EDT Physical contact outside [place] in the last 30 days : No Hospitalized in Foreign Country : No Infectious Disease History : None INF Disease TB Screening Calc : 0 INF Disease Recent Travel Calc : 0 Courtney Adamsatosin SAMANTHA FUENTES 06/21/2021 22:03 EDT Influenza Vaccine Asmt, Adult Previous Vaccines from Immunization Schedule : No qualifying data available. Influenza Immunization, Current Season : No Inactivated Flu Vaccine Contraindications : No contraindications to inactivated influenza vaccine Transplant Workup/Recent Transplant : No Order for Influenza Vaccine : Declined Vaccination Courtney Adamsatosin SAMANTHA FUENTES 06/21/2021 22:03 EDT Pneumococcal Vaccine Previous Vaccines from Immunization Schedule : No qualifying data available. Pneumonia Immunization Received : No Pneumococcal Risk Assessment < Age 65 : None BryanJuanita SAMANTHA FUENTES - 06/21/2021 22:03 EDT Order Details Isolation Precautions Order Detail : Standard Precautions IV Order Detail : 1 Patient Needs Meds Crushed/Liquid : No Juanita Adams NON EMP RN - INTERNATIONAL - 06/21/2021 22:03 EDT Nutrition History Eating Poorly Due to Decreased Appetite : No Unplanned Weight Loss in Past 3-6 Months : No Malnutrition Screening Tool Total(mal) : 0 Malnutrition Screening Tool Risk Level : Patient not at risk Juanita Adams NON EMP RN - [facility] - 06/21/2021 22:03 EDT [place] Suicide Severity Rating Scale (C-SSRS) CSSRS Past Month Wish to be : No CSSRS Past Month Suicidal Thoughts : No CSSRS Lifetime Suicide Behavior : No Suicide Severity Rating Score : 0 Suicide Severity Rating : No Additional Care Required at this time Juanita Adams NON EMP RN - [facility] - 06/21/2021 22:03 EDT Psychosocial History Currently in Unsafe Situation : No Juanita Adams NON EMP RN - [facility] - 06/21/2021 22:03 EDT Sleep Apnea Risk Assmt BiPAP/CPAP Ordered for Home Use : No Hx of Obstructive Sleep Apnea Diagnosis : Yes Age over 50 Years Old : Yes Gender Male : No Juanita Adams NON EMP RN - [facility] - 06/21/2021 22:03 EDT Valuables and Belongings Valuables and Belongings : Clothing Clothing : Common streetwear Clothing Disposition : Bedside Juanita Adams NON EMP RN - [facility] - 06/21/2021 22:03 EDT documented in this encounter Plan of Treatment Not on file documented as of this encounter Visit Diagnoses Not on filedocumented in this encounter Care Teams Ms Sql Developer Relationship Specialty Start Date End Date Provider, Not In System [place] PCP - General 01/05/23 documented as of this encounter
--- OUTSIDE RECORDS SUMMARY | 2024-08-17 08:51 | XMS_ITS | Encounter Summary ---
Author Organization [email or web address] [facility] [employer] [employer] Address [address] [place] [address] Care Team Providers Care Supervisor Gear Repair Name Role Phone Provider, Not In System Primary Care Provider Un available Encounter Details Date Type Department Care Team (Late st Contact Info) Description 08/14/2021 Transcribed Document [facility] – [place] Family Medicine [facility] [place] [address] ProviderAilyn MD [address] [place] [address] Social History Tobacco Use Types [...] Conversion Note - Ailyn ProviderMD - 08/14/2021 3:26 PM CDT [address] [address] VENECIA NAGY :1965 Visit Time:08/14/2021 What to do next 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 Discharge Follow Up Instructions: Office one week with YURI and cysto stent removal at [facility] on [address] Activity: Discharge Activity: Activity as tolerated Diet: Discharge Diet: Resume usual diet as tolerated Follow-Up Appointments Follow Up with ELEONORA BARAHONA MD-URO When 08/21/2021 01:00 PM EDT Comments Call the office to get instructions on how to get KUB x-ray before appointment. Appointment has been made Where: [facility] [place], [place] [phone] Medications What How Much When Instructions Next Dose acetaminophen-oxyCODONE (Percocet 5/ 325 oral tablet) 1 Tablet(s) Oral One Time Order as needed for Pain (Moderate 4-6) Pickup at [facility]/pharmacy #[id number] ciprofloxacin (Cipro 500 mg oral tablet) 1 Tablet(s) Oral Every 12 hours [facility] ascorbic acid (Vitamin C 500 mg oral tablet) 1 Tablet(s) Oral Every Day multivitamin (Multiple Vitamins oral tablet) 1 Tablet(s) Oral Every Day Pharmacy Information [facility]/pharmacy #[id number]: [address] [place], [place] [id number] [phone] Take your medications faithfully. Do NOT skip [...] of unused and medications per pharmacy guidance. Education Materials General Anesthesia, Adult, Care After This sheet gives you information about how to care for yourself after your procedure. Your health care provider may also give you more specific instructions. If you have problems or questions, contact your health care provider. What can I expect after the procedure? After the procedure, the following side effects are common: ??? Pain or discomfort at the IV site. ??? Nausea. ??? Vomiting. ??? Sore throat. ??? Trouble concentrating. ??? Feeling cold or chills. ??? Feeling weak or tired. ??? Sleepiness and fatigue. ??? Soreness and body aches. These side effects can affect parts of the body that were not involved in surgery. Follow these instructions at home: For the time period you were told by your health care provider: ??? Rest. ??? Do not participate in activities where you could fall or become injured. ??? Do not drive or use machinery. ??? Do not drink alcohol. ??? Do not take sleeping pills or medicines that cause drowsiness. ??? Do not make important decisions or sign legal documents. ??? Do not take care of children on your own. Eating and drinking ??? Follow any instructions from your health care provider about eating or drinking restrictions. ??? When you feel hungry, start by eating small amounts of foods that are soft and easy to digest (bland), such as toast. Gradually return to your regular diet. ??? Drink enough fluid to keep your urine pale yellow. ??? If you vomit, rehydrate by drinking water, juice, or clear broth. General instructions ??? If you have sleep apnea, surgery and certain medicines can increase your risk for breathing problems. Follow instructions from your health care provider about wearing your sleep device: ? Anytime you are sleeping, including during daytime naps. ? While taking prescription pain medicines, sleeping medicines, or medicines that make you drowsy. ??? Have a responsible adult stay with you for the time you are told. It is important to have someone help care for you until you are awake and alert. ??? Return to your normal activities as told by your health care provider. Ask your health care provider what activities are safe for you. ??? Take gbuo-dai-klogfuz and prescription medicines only as told by your health care provider. ??? If you smoke, do not smoke without supervision. ??? Keep all follow-up visits as told by your health care provider. This is important. Contact a health care provider if: ??? You have nausea or vomiting that does not get better with medicine. ??? You cannot eat or drink without vomiting. ??? You have pain that does not get better with medicine. ??? You are unable to pass urine. ??? You develop a skin rash. ??? You have a fever. ??? You have redness around your IV site that gets worse. Get help right away if: ??? You have difficulty breathing. ??? You have chest pain. ??? You have blood in your urine or stool, or you vomit blood. Summary ??? After the procedure, it is common to have a sore throat or nausea. It is also common to feel tired. ??? Have a responsible adult stay with you for the time you are told. It is important to have someone help care for you until you are awake and alert. ??? When you feel hungry, start by eating small amounts of foods that are soft and easy to digest (bland), such as toast. Gradually return to your regular diet. ??? Drink enough fluid to keep your urine pale yellow. ??? Return to your normal activities as told by your health care provider. Ask your health care provider what activities are safe for you. This information is not intended to replace advice given to you by your health care provider. Make sure you discuss any questions you have with your health care provider. Document Revised: 11/03/2020 Document Reviewed: 06/02/2020 [employer] Patient Education ?? 2020 [employer] Laser Therapy for Kidney Stones, Care After This sheet gives you information about how to care for yourself after your procedure. Your health care provider may also give you more specific instructions. If you have problems or questions, contact your health care provider. What can I expect after the procedure? After the procedure, it is common to have: ??? Pain. ??? A burning sensation while urinating. ??? Small amounts of blood in your urine. ??? A need to urinate frequently. ??? Pieces of kidney stone in your urine. ??? Mild discomfort when urinating that may be felt in the back. You may experience this if you have a flexible tube (stent) in your ureter. Follow these instructions at home: Medicines ??? Take bwnc-lom-cibcvll and prescription medicines only as told by your health care provider. ??? If you were prescribed an antibiotic medicine, take it as told by your health care provider. Do not stop taking the antibiotic even if you start to feel better. ??? Ask your health care provider if the medicine prescribed to you: ? Requires you to avoid driving or using heavy machinery. ? Can cause constipation. You may need to take actions to prevent or treat constipation, such as: ? Take effm-deg-mkbqiov or prescription medicines. ? Eat foods that are high in fiber, such as beans, whole grains, and fresh fruits and vegetables. ? Limit foods that are high in fat and processed sugars, such as fried or sweet foods. Activity ??? Return to your normal activities as told by your health care provider. Ask your health care provider what activities are safe for you. ??? Do not drive for 24 hours if you were given a sedative during your procedure. General instructions ??? If your health care provider approves, you may take a warm bath to ease discomfort and burning. ??? Drink enough fluid to keep your urine pale yellow. Your health care provider may recommend drinking two 8 oz (237 mL) glasses of water per hour for a few hours after your procedure. ??? You may be asked to strain your urine to collect any stone fragments that you pass. These fragments may be tested. ??? Keep all follow-up visits as told by your health care provider. This is important. If you have a stent, you will need to return to your health care provider to have the stent removed. Contact a health care provider if you: ??? Have pain or a burning feeling that lasts more than 2 days. ??? Feel nauseous. ??? Vomit more and more often. ??? Have difficulty urinating. ??? Have pain that gets worse or does not get better with medicine. Get help right away if: ??? You are unable to urinate, even if your bladder feels full. ??? You have: ? Bright red blood or blood clots in your urine. ? More blood in your urine. ? Severe pain or discomfort. ? A fever or shaking chills. ? Abdominal pain. ? Difficulty breathing. ? Swelling in your legs. Summary ??? After the procedure, it is common to have a burning sensation while urinating and small amounts of blood in your urine. ??? Take efsh-vps-gxtlbil and prescription medicines only as told by your health care provider. ??? Drink enough fluid to keep your urine pale yellow. ??? Keep all follow-up visits as told by your health care provider. This is important. This information is not intended to replace advice given to you by your health care provider. Make sure you discuss any questions you have with your health care provider. Document Revised: 10/30/2018 Document Reviewed: 10/30/2018 [employer] Patient Education ?? 2020 [employer]. Lithotripsy, Care After This sheet gives you information about how to care for yourself after your procedure. Your health care provider may also give you more specific instructions. If you have problems or questions, contact your health care provider. What can I expect after the procedure? After the procedure, it is common to have: ??? Some blood in your urine. This should only last for a few days. ??? Soreness in your back, sides, or upper abdomen for a few days. ??? Blotches or bruises on the area where the shock wave entered the skin. ??? Pain, discomfort, or nausea when pieces (fragments) of the kidney stone move through the tube that carries urine from the kidney to the bladder (ureter). Stone fragments may pass soon after the procedure, but they may continue to pass for up to 4???8 weeks. ? If you have severe pain or nausea, contact your health care provider. This may be caused by a large stone that was not broken up, and this may mean that you need more treatment. ??? Some pain or discomfort during urination. ??? Some pain or discomfort in the lower abdomen or (in men) at the base of the penis. Follow these instructions at home: Medicines ??? Take vxgf-kgj-gaewanr and prescription medicines only as told by your health care provider. ??? If you were prescribed an antibiotic medicine, take it as told by your health care provider. Do not stop taking the antibiotic even if you start to feel better. ??? Ask your health care provider if the medicine prescribed to you requires you to avoid driving or using machinery. Eating and drinking ??? Drink enough fluid to keep your urine pale yellow. This helps any remaining pieces of the stone to pass. It can also help prevent new stones from forming. ??? Eat plenty of fresh fruits and vegetables. ??? Follow instructions from your health care provider about eating or drinking restrictions. You may be instructed to: ? Reduce how much salt (sodium) you eat or drink. Check ingredients and nutrition facts on packaged foods and beverages to see how much sodium they contain. ? Reduce how much meat you eat. ??? Eat the recommended amount of calcium for your age and gender. Ask your health care provider how much calcium you should have. General instructions ??? Get plenty of rest. ??? Return to your normal activities as told by your health care provider. Ask your health care provider what activities are safe for you. Most people can resume normal activities 1???2 days after the procedure. ??? If you were given a sedative during the procedure, it can affect you for several hours. Do not drive or operate machinery until your health care provider says that it is safe. ??? Your health care provider may direct you to lie in a certain position (postural drainage) and tap firmly (percuss) over your kidney area to help stone fragments pass. Follow instructions as told by your health care provider. ??? If directed, strain all urine through the strainer that was provided by your health care provider. ? Keep all fragments for your health care provider to see. Any stones that are found may be sent to a medical lab for examination. The stone may be as small as a grain of salt. ??? Keep all follow-up visits as told by your health care provider. This is important. Contact a health care provider if: ??? You have a fever or chills. ??? You have nausea that is severe or does not go away. ??? You have any of these urinary symptoms: ? Blood in your urine for longer than your health care provider told you to expect. ? Urine that smells bad or unusual. ? Feeling a strong urge to urinate after emptying your bladder. ? Pain or burning with urination that does not go away. ? Urinating more often than usual and this does not go away. ??? You have a stent and it comes out. Get help right away if: ??? You have severe pain in your back, sides, or upper abdomen. ??? You have any of these urinary symptoms: ? Severe pain while urinating. ? More blood in your urine or having blood in your urine when you did not before. ? Passing blood clots in your urine. ? Passing only a small amount of urine or being unable to pass any urine at all. ??? You have severe nausea that leads to persistent vomiting. ??? You faint. Summary ??? After this procedure, it is common to have some pain, discomfort, or nausea when pieces (fragments) of the kidney stone move through the tube that carries urine from the kidney to the bladder (ureter). If this pain or nausea is severe, however, you should contact your health care provider. ??? Return to your normal activities as told by your health care provider. Ask your health care provider what activities are safe for you. ??? Drink enough fluid to keep your urine pale yellow. This helps any remaining pieces of the stone to pass, and it can help prevent new stones from forming. ??? If directed, strain your urine and keep all fragments for your health care provider to see. Fragments or stones may be as small as a grain of salt. ??? Get help right away if you have severe pain in your back, sides, or upper abdomen, or if you have severe pain while urinating. This information is not intended to replace advice given to you by your health care provider. Make sure you discuss any questions you have with your health care provider. Document Revised: 12/02/2019 Document Reviewed: 12/02/2019 [employer] Patient Education ?? 2020 [employer] Emergency Awareness and Preventative Care STROKE [...] Assistance with quitting is available by contacting 7-411-PIPINOW. This is a free resource providing counseling, [...] CPR? There are two easy steps: Call 9-1-1 if you see a teen or adult [...] and how to prevent infections, visit www.cdc.gov/sepsis. Test Results Laboratory or Other Results This Visit (last charted value for your 08/14/2021 visit) No Laboratory or Other Results This Visit Patient Name:VENECIA NAGY I have received this information and was given the opportunity to ask questions. Patient/Automobile Contract Clerk Name: Patient/Automobile Contract Clerk Signature: Relationship to Patient: Clinician/Hospital Automobile Contract Clerk Signature: Date: Electronically signed by Gayle Villanueva Conversion Financial Administration Officer Cerner at 06/17/2022 10:06 AM CDT documented in this encounter Plan of Treatment Not on file documented as of this encounter Visit Diagnoses Not on filedocumented in this encounter Care Teams Supervisor Gear Repair Relationship Specialty Start Date End Date Provider, Not In System [place] PCP - General 01/05/23 documented as of this encounter
--- OUTSIDE RECORDS SUMMARY | 2024-08-17 08:51 | XMS_ITS | Continuity of Care Document ---
Author Organization [place] - [facility]ariat[facility] and Adv Surg Address [address] [place] [address] Care Team Providers Care Skiagrapher Name Role Phone ALEX LOVE Primary Care Provider [phone] Assessment Encounter Date Assessment Date Assessment LastModified by Organization Details LastModified Time 07/16/2024 07/16/2024 A total of 15 minutes was spent with the pt today. Recommendations: 1. Focus on following the bariatric plate for meals (1/2 plate protein, 1/4 plate veggies, 1/4 plate fiber) 2. Aim for 6314-7456 kcal/day 3. Continue with 70+ g pro, 64 fluid oz, <100 g carb, and aim for 25 g fiber 4. Add in strength training exercises 2-3 days per week to help increase muscle mass 6. F/U with RD as needed Pt doing well overall. Addressed concerns today. Pt was reassured at today's visit. Pt verbally agreed to recommendations and goals. Denied further questions/concerns . RDN will monitor weight loss, labs, meds, and lifestyle modifications. Will f/up as scheduled or PRN. [email or web address] Not available 07/16/2024 14:35:51 Plan of Treatment Reminders Order Date Submit Date Provider Last Modified By Organization Details Last Modified Time Details Appointments OV EST 20 025 01:20PM BALDO Martinez Not available Not available Not available Lab None record ed. Referral None record ed. Procedures None record ed. Surgeries None record ed. Imaging None record ed. Medication Orders None record ed. Patient TargetsNo targets recorded. Patient InstructionsNo instructions recorded. Reason for Referral None Reported. Problems Name Problem SNOMED Code Status Onset Date Resolution Date Notes Provider Name and Address Organization Details Recorded Time Intentional weight loss 886413778 Active 2023 BALDO Martinez [address], [place], [address] , [facility] - [facility] & [place] 4 13:29:21 High hemoglobin A1c level 788729993 Active 2024 BALDO Martinez [address], [place], [address] , [place] - [facility] & [place] 5 11:14:15 Hypothyroidis m 19150280 Active 2021 Not Available [facility] 3 12:26:10 Mixed anxiety and depressive disorder 609011960 Active 2021 Not Available [facility] 3 12:26:10 Insomnia 602516776 Active 2021 Not Available [facility] 3 12:26:10 Onychomycosis 075707829 Active 2022 Not Available [facility] 3 12:26:10 Obesity 402626853 Active 2022 Not Available [facility] 3 12:26:10 Hormonal activity 709741353 Active 2022 Not Available [facility] 3 12:26:10 Essential hypertension 99925405 Active 2023 BALDO Martinez [address], [place], [address] , [place] - [facility] & [place] 4 12:26:08 Hyperlipidemi a 24930738 Active [address], [place], [address] , [place] - [facility] & [place] 4 12:26:12 Disorder of function of stomach 059997323 Active [address], [place], [address] , [place] - [facility] & [place] 4 12:27:15 Problem Notes None recorded. Procedures Surgical History Date Name Laterality Status Provider Name and Address Organization Details Recorded Time 01/06/20 24 laparoscopic sleeve gastrectomy completed Janay Cervantes [facility] & [place] 01/14/2024 07:58:45 07/19/19 23 Most Recent Mammogram completed Cara Lul [place] - [facility] & [place] 07/18/2022 08:28:48 03/04/18 88 ENT Surgery completed BALDO Martinez [address], [place], [address], [facility] - [facility] & [place] 09/03/2023 14:02:25 lithotripsy completed Alicia Garcia [place] - [facility] & [place] 07/19/2022 10:24:30 [facility] & [place] 09/02/2023 16:50:49 extraction of wisdom tooth completed Nenita Parish [place] - [facility] & [place] 09/02/2023 16:51:04 Tubal Ligation [facility] & [place] 09/02/2023 16:51:26 tons[facility]omy [facility] & [place] 11/11/2023 09:02:33 augmentation mammoplasty completed Chio Fajardo [place] - [facility] & [place] 11/11/2023 09:02:44 thumb surgery completed Janay Cervantes [place] - [facility] & [place] 07/16/2024 14:06:08 Imaging Results None recorded. Procedure Notes None recorded. Medical Equipment None Reported. Allergies Allergen ID Allergen Name Allergen Category Reaction Reaction Severity Criticality Documentation Date Start Date Code Code System Note Provider Name and Address Organization Details Recorded Time 925021 No known allergy (situatio n) Not available Not available Not available Not available 07/06/2024 14987 [id number] SNOMED China Colon null, [place] - [facility] & [place] 13:05:38 No known drug allergies Medications Name [...] Not Available Vitals Date Recorded Body height Heart rate Body temperature Body mass index (BMI) Body weight Systolic blood pressure Diastolic blood pressure Provider Name and Address Organization Details Last Updated DateTime 167.64 cm 78 /min 96.9 [degF] 29.2 kg/m2 13473.1 4 g 127 mm[Hg] 86 mm[Hg] Janay JAMESON [facility] & [place] 14:06:19 Social History Question Answer Notes LastModified by Organizat ion Details LastModified Time Tobacco Smoking Status Never Smoker Not Available [facility] 07/27/2022 12:26:11 Do You Have An Advance [...] anxious, or unable to sleep at night)? [id number] [email or web address]_MERGE Information not available 07/27/2022 Do you have difficulty concentrating, remembering or making decisions? No Information no t available 07/14/2024 Family History Relationship Description Onset Age of this Age Resolved Age Notes LastModified by Organization Details LastModified Time Father Heart disease [email or web address] Not available 2023 09:38:51 Father Diabetes mellitus [email or web address] Not available 2024 10:27:37 Father Kidney stone [email or web address] Not avai lable 07/14/2024 10:27:37 Mother Heart disease [email or web address] Not available 2023 09:38:57 Mother Hypertensive disorder [email or web address] Not available 2024 10:02:23 Medical History Condition Response Diabetes N Arthritis Y Kidney Stones Y Kidney or Bladder Problems Y Thyroid Problems Y Diverticulitis N Depression Y Hypothyroidism Y Reflux/GERD Y Sleep Apnea Y High Cholesterol Y Obstructive Sleep Apnea Y Hypertension Y Gynecological History Statement/Question Response Menses Monthly N Abnormal Pap N Most Recent Mammogram 07/18/2022 Date of LMP 02/20/2021 Sexually Active? N Obstetrics History GPAL:G 0 P 0 0 0 0 Past Encounters Encounter ID Performer Location Encounter Start Date Encounter Closed Date Diagnosis/Indication Diagnosis SNOMED-CT Code Diagnosis ICD10 Code Diagnosis Note [id number] Alex Love MD [facility] [address] [address] 07/14/2024 10:27:34 07/14/2024 11:23:23 Lesion of skin of face 9003232648 06 L98.9 well will refer patient to Dermatolog y [id number] BALDO Martinez [facility] Bariatric s and Adv Surg [address] [place] [address] 07/16/2024 13:59:09 07/16/2024 14:18:55 Disorder of function of stomach 141954219 K31.89 Patient reports improvemen t of reflux disease status post sleeve gastrectom y hiatal hernia repair. Discussed weaning off of PPI. She report any worsening prandial reflux symptoms.F ollow up 3 months Essential hypertension 68543926 I10 Elevated blood pressure reading in office today. Patient advised to continue to treat with PCP High hemog lobin A1c level 635179695 R73.09 Patient is not fasting for labs today. She will take lab order to close lab fasting within the next few weeks Intentiona l weight loss 186517806 R63.8 E66.3 Z68.29 Patient has done very well with weight loss status post sleeve gastrectom y. Encouraged patient to continue focus on small frequent meals and 80-90 g of protein. It advised patient may need to increase calories to at least a 1000 daily. Encouraged hydration and exercisePa tient is to see dietitian today for typical six-month postoperat edwin dietary supportfol low-up 3months History of gastrectomy 619736360 Z90.3 Advised qid intake 50% protein 5246-3725 calories/d y less than 100 carbs/dyLo ng discussion today of [employer] results including PBF(percen t body fat) SMM (skeletal muscle mass) Visceral fat level level BMR Segmental Fat Analysis and Segmental Lean Analysis.E ncouraged pt to take minimal calories as per BMR and to anticipate changes in SMM and PBF values not just total weight.Fol low-up with Repeat ALTON in 3mth suggested Patient is status post bariatric surgery and at increased risk for vitamin deficienci es and malnutriti on. Bariatric vitamin panel ordered today. Patient will be contacted to correct any vitamin deficienci es. At [facility] ed risk of nutritional deficit 478182579 Z91.89 Hyperlipidemia 90033303 E78.[id number] [facility] Bariatric s and Adv Surg [address] [place] [address] 07/16/2024 14:19:03 07/16/2024 14:36:23 Dietary management surveillance 949386506 Z71.3 Health Concerns Section Related Observation LastModified by Organization Detai ls LastModified Time None Recorded Concern Status LastModified by Organization Details LastModified Time None Recorded Payers Encounter Date Sequence Insurance Name Policy Number Policy Patel Covered Member ID Patel Member ID Guarantor Name 07/16/2024 1 [facility] (MEDICAID REPLACEMENT - HMO) [id number] Venecia Caruso [id number] Venecia Caruso Notes Date Note Type Note Provider Name and Address Organization Details Recorded Time 07/16/2024 text/html Patient presents for 6mth Post-Op Check s/p LSG HHR 01/06/24Patient presents the office today for routine follow-up status post bariatric surgery. Patient doing well. Reports q.i.d. small meal intake. Reports >80g/dy protein intake and good hydration. Daily Calories up to 1400. Patient states she feels great and has good energy. She does admit she has stopped exercising like she was.In body shows patient has lost a total of 50 lb. She is lost 19 lb since last office visit. Current BMI is now less than 30. % body fat 42.6% basal metabolic rate 1007Taking routine vitamins as advised.Heartburn /gastroesophageal reflux: Patient reports significant improvement of reflux status post hiatal hernia repair. She feels like she may be able to stop PPI.Pt Denies : abdominal pain, prandial issues Nausea, Vomiting, bowel or bladder issuesPt is happy with their quality of life after Weight loss Surgery. @3mth OV- Patient doing well. Reports q.i.d. small meal intake. Reports 80-90g/dy protein intake and good hydration. Daily Calories 800-900Taking routine vitamins as advised. 1mth labs WNLHeartburn/sada roesophageal reflux: improved and controlled w omepPt Denies : abdominal pain, prandial issues Nausea, Vomiting, bowel or bladder issuesTotal Weight loss 31lbs Now <200lbs BMI 32.2 5%body fat loss BMR 1424Pt is happy with their quality of life after Weight loss Surgery.Patient reports good energy and decreased dyspnea on exertion. Elevated blood pressure reading in office today. Patient tells me she has not seen PCP since surgery. She does have an appointment later this month. @1mth post op - Patient presents the office today for routine follow-up status post bariatric surgery. Patient doing well. Patient reports she is tolerating diet progression well. She has been able to eat fish and chicken. She reports 50 g of protein daily and 64 oz of fluids. She states she feels good. No complaints todayTaking routine vitamins as advised.Not taking PPIPMH HTNHeartburn/sada roesophageal reflux: denies. Patient reports improvement of reflux disease status post hiatal hernia repairPt Denies : abdominal pain, prandial issues Nausea, Vomiting, bowel or bladder issuesTotal Weight loss 15 lbPt is happy with their quality of life after Weight loss Surgery. @1wk post op- Patient is doing well. Tolerating PO intake w/out issue. Getting 70g/dy protein. Pt reports good hydration 50-64oz . Taking recommended vitamins and PPI.Pt Denies : abdominal pain, prandial issues Nausea, Vomiting, bowel or bladder issuesPath benignPt is happy with their quality of life after Weight loss Surgery. BALDO Martinez [address], [place], [address], [facility] [place] & [place] 07/16/2024 14:25:30 07/16/2024 text/html RDN met w/ pt fo r 6 month f/up s/p LSG HHR 01/06/24 . Pt weight at MD Consult: 230#Current Weight: 180.7#Total Weight Change: -49.3# Notes on weight: desires continued weight loss at this time Signs/SymptomsN/V /C/D: denies Inbody:SMM: 58.6 down 56.4PBF: 46 to 42.6BMI = 1387 Meds and labs reviewed.Notes - bariatric MVI with iron, ca chew, hair/skin/nails Physical activity: not at the moment but going to get back into it Tracking meal intakes: does it in her head Est. daily kcal intake: ~1400 Est. daily protein intake: 80 grams of protein Est. daily fluid intake: 64 fluid oz Meal Frequency/Pattern : 2-3 meals per day2 fairlife shakes per dayfruits, cheese, apples Drinks: water, fairlife chocolate milk Foods Not Tolerated: denies Additional notes/concerns: GUZMAN LYMAN, RD [address], [place], [address], [facility] - [place] - [place] & [place] 07/16/2024 14:36:09 OBGyn Episode No OBEpisode recorded.
--- OUTSIDE RECORDS SUMMARY | 2024-08-17 08:51 | XMS_ITS | Encounter Summary ---
Author Organization [employer] Address [address] [place] [address] Care Team Providers Care Tail Board Worker Name Role Phone Provider, Not In System Primary Care Provider Un available Encounter Details Date Type Department Care Team (Late st Contact Info) Description 09/10/2021 Transcribed Document [facility] Family Medicine [address] [place] [address] ProviderAilyn MD [address], [place] [phone] Social History Tobacco Use Types Packs/Day Years [...] Note - Ailyn Cavazos MD - 09/10/2021 5:03 PM CDT [place] Suicide Severity Rating Scale (C-SSRS) Entered On: 09/10/2021 17:56 EDT Performed On: 09/10/2021 17:56 EDT by Shirley Mcgrath RN [place] Suicide Severity Rating Scale (C-SSRS) CSSRS Past Month Wish to be : No CSSRS Past Month Suicidal Thoughts : No CSSRS Lifetime Suicide Behavior : No Suicide Severity Rating Score : 0 Suicide Severity Rating : No Additional Care Required at this time Shirley Mcgrath RN - 09/10/2021 17:56 EDT Electronically signed by Rich [facility] [employer] at 06/17/2022 9:41 AM CDT documented in this encounter Plan of Treatment Not on file documented as of this encounter Visit Diagnoses Not on filedocumented in this encounter Care Teams Tail Board Worker Relationship Specialty Start Date End Date Provider, Not In System [place] PCP - General 01/05/23 documented as of this encounter
--- OUTSIDE RECORDS SUMMARY | 2024-08-17 08:51 | XMS_ITS | Encounter Summary ---
Author Organization [employer] Address [address] [place] [address] Care Team Providers Care Economic Development Specialist Name Role Phone Provider, Not In System Primary Care Provider Un available Encounter Details Date Type Department Care Team (Late st Contact Info) Description 08/14/2021 Transcribed Document [facility] Family Medicine [place] [address] ProviderAilyn MD [address] [place] [phone] Social History Tobacco Use Types Packs/Day Years [...] Conversion Note - Ailyn Cavazos MD - 08/14/2021 2:48 PM CDT DATE OF PROCEDURE: 08/14/2021 SURGEON: Warren Warner MD PREOPERATIVE DIAGNOSIS: Left renal calculus. POSTOPERATIVE DIAGNOSIS: Left ureteral calculus. PROCEDURE PERFORMED: Left shockwave lithotripsy. DESCRIPTION OF PROCEDURE: After the induction of general anesthesia, patient was prepped and draped in supine position. Fluoroscopy was used to visualize the stone. The stone had moved from the renal pelvis down the proximal ureter. The patient was positioned. After this was accomplished, 3000 shocks were given to the stone. There appeared to be fragmentation. The patient tolerated procedure well, left the operating room in satisfactory condition. /[id number] Warren Warner MD [facility]/ / [facility] / MODL /[id number] Electronically signed by Rich, [facility] [employer] at 06/17/2022 10:00 AM CDT documented in this encounter Plan of Treatment Not on file documented as of this encounter Visit Diagnoses Not on filedocumented in this encounter Care Teams Economic Development Specialist Relationship Specialty Start Date End Date Provider, Not In System [place] PCP - General 01/05/23 documented as of this encounter
--- OUTSIDE RECORDS SUMMARY | 2024-08-17 08:51 | XMS_ITS | Encounter Summary ---
Author Organization [employer] Address [address] [place] [address] Care Team Providers [employer] Name Role Phone Provider, Not In System Primary Care Provider Un available Encounter Details Date Type Department Care Team (Late st Contact Info) Description 06/23/2021 Transcribed Document [facility] Family Medicine [place] [address] ProviderAilyn MD [address] [place] [address] Social History Tobacco Use Types [...] Note - Ailyn Cavazos MD - 06/23/2021 12:59 PM CDT [facility] [place] [address] [address] :1965 Visit Time:06/21/2021 Your Visit Summary Your Care Team Admitting Physician - DAGOBERTO RAMOS MD Attending Physician - DAGOBERTO RAMOS MD Primary Care Physician - TEETEE, NOT LISTED Referring Physician - DAGOBERTO RAMOS MD Your Diagnosis Calculus of kidney, Calculus of kidney Left ureteral stone UTI (urinary tract infection) These Are Your Goals Patient Discharge Goal Patient Discharge Goal: Home What to do next Instructions From Your Care Team Discharge Activity: Activity as tolerated Discharge Diet: Resume usual diet as tolerated Driving Restriction: No driving until 24 hours after taking pain medication Follow-Up Appointments Follow Up with ANDREA BAILEY MD-URO When 07/06/2021 01:30 PM EDT Comments URO appt made, Bring discharge instructions with you Where: [address] [id number] Follow Up with Primary care offices in [place] When Within 2 to 3 days Comments [facility]- [phone] [facility] (Private Practice)- [phone] [facility]- [phone] [facility]- [phone] [facility]- [phone] If you need more help please call meAlycia- [phone] Medications What How Much When Instructions Next Dose levoFLOXacin (Levaquin 500 mg oral tablet) 1 Tablet(s) Oral Interval Every 24 Hours Duration: 5 Day(s) Pickup at [facility] tomorrow around 11am ondansetron (Zofran ODT 4 mg oral tablet, disintegrating) See instructions Tab mg Oral TID allow tablet to dissolve under tongue Pickup at [facility] as directed oxyCODONE (oxyCODONE 5 mg oral tablet) 1 Tablet(s) Oral Every 6 Hours as needed for Pain (Severe 7-10) Duration: 3 Day(s) Pickup at [facility] as needed ascorbic acid (Vitamin C 500 mg oral tablet) 1 Tablet(s) Oral Every Day resume home schedule multivitamin (Multiple Vitamins oral tablet) 1 Tablet(s) Oral Every Day resume home schedule Pharmacy Information [facility] [place]: [address] [place], [place] [id number] [phone] Take your medications faithfully. Do NOT skip [...] Please dispose of unused and medications per your retail pharmacy guidance. Allergies No Known Allergies Immunizations This Visit No Immunizations Found Education Materials Urinary Tract Infection, Adult A urinary tract infection (UTI) is an infection of any part of the urinary tract. The urinary tract includes: ??? The kidneys. ??? The ureters. ??? The bladder. ??? The urethra. These organs make, store, and get rid of pee (urine) in the body. What are the causes? This infection is caused by germs (bacteria) in your genital area. These germs grow and cause swelling (inflammation) of your urinary tract. What increases the risk? The following factors may make you more likely to develop this condition: ??? Using a small, thin tube (catheter) to drain pee. ??? Not being able to control when you pee or poop (incontinence). ??? Being female. If you are female, these things can increase the risk: ? Using these methods to prevent : ? A medicine that kills sperm (spermicide). ? A device that blocks sperm (diaphragm). ? Having low levels of a female hormone (estrogen). ? Being . You are more likely to develop this condition if: ??? You have genes that add to your risk. ??? You are sexually active. ??? You take antibiotic medicines. ??? You have trouble peeing because of: ? A prostate that is bigger than normal, if you are male. ? A blockage in the part of your body that drains pee from the bladder. ? A kidney stone. ? A nerve condition that affects your bladder. ? Not getting enough to drink. ? Not peeing often enough. ??? You have other conditions, such as: ? Diabetes. ? A weak disease-fighting system (immune system). ? Sickle cell disease. ? Gout. ? Injury of the spine. What are the signs or symptoms? Symptoms of this condition include: ??? Needing to pee right away. ??? Peeing small amounts often. ??? Pain or burning when peeing. ??? Blood in the pee. ??? Pee that smells bad or not like normal. ??? Trouble peeing. ??? Pee that is cloudy. ??? Fluid coming from the vagina, if you are female. ??? Pain in the belly or lower back. Other symptoms include: ??? Vomiting. ??? Not feeling hungry. ??? Feeling mixed up (confused). This may be the first symptom in older adults. ??? Being tired and grouchy (irritable). ??? A fever. ??? Watery poop (diarrhea). How is this treated? Taking antibiotic medicine. ??? Taking other medicines. ??? Drinking enough water. In some cases, you may need to see a specialist. Follow these instructions at home: Medicines ??? Take rcqc-tev-roqzhme and prescription medicines only as told by your doctor. ??? If you were prescribed an antibiotic medicine, take it as told by your doctor. Do not stop taking it even if you start to feel better. General instructions ??? Make sure you: ? Pee until your bladder is empty. ? Do not hold pee for a long time. ? Empty your bladder after sex. ? Wipe from front to back after peeing or pooping if you are a female. Use each tissue one time when you wipe. ??? Drink enough fluid to keep your pee pale yellow. ??? Keep all follow-up visits. Contact a doctor if: ??? You do not get better after 1???2 days. ??? Your symptoms go away and then come back. Get help right away if: ??? You have very bad back pain. ??? You have very bad pain in your lower belly. ??? You have a fever. ??? You have chills. ??? You feeling like you will vomit or you vomit. Summary ??? A urinary tract infection (UTI) is an infection of any part of the urinary tract. ??? This condition is caused by germs in your genital area. ??? There are many risk factors for a UTI. ??? Treatment includes antibiotic medicines. ??? Drink enough fluid to keep your pee pale yellow. This information is not intended to replace advice given to you by your health care provider. Make sure you discuss any questions you have with your health care provider. Document Revised: 09/30/2020 Document Reviewed: 09/30/2020 [employer] Patient Education ?? 2020 [employer] Ureteral Stent Implantation, Care After This sheet gives you information about how to care for yourself after your procedure. Your health care provider may also give you more specific instructions. If you have problems or questions, contact your health care provider. What can I expect after the procedure? After the procedure, it is common to have: ??? Nausea. ??? Mild pain when you urinate. You may feel this pain in your lower back or lower abdomen. The pain should stop within a few minutes after you urinate. This may last for up to 1 week. ??? A small amount of blood in your urine for several days. Follow these instructions at home: Medicines ??? Take wzjc-ozu-lhdwluf and prescription medicines only as told by your health care provider. ??? If you were prescribed an antibiotic medicine, take it as told by your health care provider. Do not stop taking the antibiotic even if you start to feel better. ??? Do not drive for 24 hours if you were given a sedative during your procedure. ??? Ask your health care provider if the medicine prescribed to you requires you to avoid driving or using heavy machinery. Activity ??? Rest as told by your health care provider. ??? Avoid sitting for a long time without moving. Get up to take short walks every 1???2 hours. This is important to improve blood flow and breathing. Ask for help if you feel weak or unsteady. ??? Return to your normal activities as told by your health care provider. Ask your health care provider what activities are safe for you. General instructions ??? Watch for any blood in your urine. Call your health care provider if the amount of blood in your urine increases. ??? If you have a catheter: ? Follow instructions from your health care provider about taking care of your catheter and collection bag. ? Do not take baths, swim, or use a hot tub until your health care provider approves. Ask your health care provider if you may take showers. You may only be allowed to take sponge baths. ??? Drink enough fluid to keep your urine pale yellow. ??? Do not use any products that contain nicotine or tobacco, such as cigarettes, e-cigarettes, and chewing tobacco. These can delay healing after surgery. If you need help quitting, ask your health care provider. ??? Keep all follow-up visits as told by your health care provider. This is important. Contact a health care provider if: ??? You have pain that gets worse or does not get better with medicine, especially pain when you urinate. ??? You have difficulty urinating. ??? You feel nauseous or you vomit repeatedly during a period of more than 2 days after the procedure. Get help right away if: ??? Your urine is dark red or has blood clots in it. ??? You are leaking urine (have incontinence). ??? The end of the stent comes out of your urethra. ??? You cannot urinate. ??? You have sudden, sharp, or severe pain in your abdomen or lower back. ??? You have a fever. ??? You have swelling or pain in your legs. ??? You have difficulty breathing. Summary ??? After the procedure, it is common to have mild pain when you urinate that goes away within a few minutes after you urinate. This may last for up to 1 week. ??? Watch for any blood in your urine. Call your health care provider if the amount of blood in your urine increases. ??? Take wuaf-yrt-bhpqbeb and prescription medicines only as told by your health care provider. ??? Drink enough fluid to keep your urine pale yellow. This information is not intended to replace advice given to you by your health care provider. Make sure you discuss any questions you have with your health care provider. Document Revised: 11/25/2018 Document Reviewed: 11/26/2018 [employer] Patient Education ?? 2020 [employer]. Kidney Stones Kidney stones are rock-like masses that form inside of the kidneys. Kidneys are organs that make pee (urine). A kidney stone may move into other parts of the urinary tract, including: ??? The tubes that connect the kidneys to the bladder (ureters). ??? The bladder. ??? The tube that carries urine out of the body (urethra). Kidney stones can cause very bad pain and can block the flow of pee. The stone usually leaves your body (passes) through your pee. You may need to have a doctor take out the stone. What are the causes? Kidney stones may be caused by: ??? A condition in which certain glands make too much parathyroid hormone (primary hyperparathyroidism). ??? A buildup of a type of crystals in the bladder made of a chemical called uric acid. The body makes uric acid when you eat certain foods. ??? Narrowing (stricture) of one or both of the ureters. ??? A kidney blockage that you were born with. ??? Past surgery on the kidney or the ureters, such as gastric bypass surgery. What increases the risk? You are more likely to develop this condition if: ??? You have had a kidney stone in the past. ??? You have a family history of kidney stones. ??? You do not drink enough water. ??? You eat a diet that is high in protein, salt (sodium), or sugar. ??? You are overweight or very overweight (obese). What are the signs or symptoms? Symptoms of a kidney stone may include: ??? Pain in the side of the belly, right below the ribs (flank pain). Pain usually spreads (radiates) to the groin. ??? Needing to pee often or right away (urgently). ??? Pain when going pee (urinating). ??? Blood in your pee (hematuria). ??? Feeling like you may vomit (nauseous). ??? Vomiting. ??? Fever and chills. How is this treated? Treatment depends on the size, location, and makeup of the kidney stones. The stones will often pass out of the body through peeing. You may need to: ??? Drink more fluid to help pass the stone. In some cases, you may be given fluids through an IV tube put into one of your veins at the hospital. ??? Take medicine for pain. ??? Make changes in your diet to help keep kidney stones from coming back. Sometimes, medical procedures are needed to remove a kidney stone. This may involve: ??? A procedure to break up kidney stones using a beam of light (laser) or shock waves. ??? Surgery to remove the kidney stones. Follow these instructions at home: Medicines ??? Take yozb-ftf-yrrnbzj and prescription medicines only as told by your doctor. ??? Ask your doctor if the medicine prescribed to you requires you to avoid driving or using heavy machinery. Eating and drinking ??? Drink enough fluid to keep your pee pale yellow. You may be told to drink at least 8???10 glasses of water each day. This will help you pass the stone. ??? If told by your doctor, change your diet. This may include: ? Limiting how much salt you eat. ? Eating more fruits and vegetables. ? Limiting how much meat, poultry, fish, and eggs you eat. ??? Follow instructions from your doctor about eating or drinking restrictions. General instructions ??? Collect pee samples as told by your doctor. You may need to collect a pee sample: ? 24 hours after a stone comes out. ? 8???12 weeks after a stone comes out, and every 6???12 months after that. ??? Strain your pee every time you pee (urinate), for as long as told. Use the strainer that your doctor recommends. ??? Do not throw out the stone. Keep it so that it can be tested by your doctor. ??? Keep all follow-up visits as told by your doctor. This is important. You may need follow-up tests. How is this prevented? To prevent another kidney stone: ??? Drink enough fluid to keep your pee pale yellow. This is the best way to prevent kidney stones. ??? Eat healthy foods. ??? Avoid certain foods as told by your doctor. You may be told to eat less protein. ??? Stay at a healthy weight. Where to find more information ??? National Kidney Foundation (NKF): www.kidney.org ??? [facility] [facility] (F): www.urologyhealth.org Contact a doctor if: ??? You have pain that gets worse or does not get better with medicine. Get help right away if: ??? You have a fever or chills. ??? You get very bad pain. ??? You get new pain in your belly (abdomen). ??? You pass out (faint). ??? You cannot pee. Summary ??? Kidney stones are rock-like masses that form inside of the kidneys. ??? Kidney stones can cause very bad pain and can block the flow of pee. ??? The stones will often pass out of the body through peeing. ??? Drink enough fluid to keep your pee pale yellow. This information is not intended to replace advice given to you by your health care provider. Make sure you discuss any questions you have with your health care provider. Document Revised: 07/07/2019 Document Reviewed: 07/07/2019 [employer] Patient Education ?? 2020 [employer] Dietary Guidelines to Help Prevent Kidney Stones Kidney stones are deposits of minerals and salts that form inside your kidneys. Your risk of developing kidney stones may be greater depending on your diet, your lifestyle, the medicines you take, and whether you have certain medical conditions. Most people can lower their chances of developing kidney stones by following the instructions below. Your dietitian may give you more specific instructions depending on your overall health and the type of kidney stones you tend to develop. What are tips for following this plan? Reading food labels ??? Choose foods with no salt added or low-salt labels. Limit your salt (sodium) intake to less than 1,500 mg a day. ??? Choose foods with calcium for each meal and snack. Try to eat about 300 mg of calcium at each meal. Foods that contain 200???500 mg of calcium a serving include: ? 8 oz (237 mL) of milk, xjvfwnl-pxosaazzyhbz-jggwb milk, and calcium-fortifiedfruit juice. Calcium-fortified means that calcium has been added to these drinks. ? 8 oz (237 mL) of kefir, yogurt, and soy yogurt. ? 4 oz (114 g) of tofu. ? 1 oz (28 g) of cheese. ? 1 cup (150 g) of dried figs. ? 1 cup (91 g) of cooked broccoli. ? One 3 oz (85 g) can of sardines or mackerel. Most people need 1,000???1,500 mg of calcium a day. Talk to your dietitian about how much calcium is recommended for you. Shopping ??? Buy plenty of fresh fruits and vegetables. Most people do not need to avoid fruits and vegetables, even if these foods contain nutrients that may contribute to kidney stones. ??? When shopping for convenience foods, choose: ? Whole pieces of fruit. ? Pre-made salads with dressing on the side. ? Low-fat fruit and yogurt smoothies. ??? Avoid buying frozen meals or prepared deli foods. These can be high in sodium. ??? Look for foods with live cultures, such as yogurt and kefir. ??? Choose high-fiber grains, such as whole-wheat breads, oat bran, and wheat cereals. Cooking ??? Do not add salt to food when cooking. Place a salt shaker on the table and allow each person to add his or her own salt to taste. ??? Use vegetable protein, such as beans, textured vegetable protein (TVP), or tofu, instead of meat in pasta, casseroles, and soups. Meal planning ??? Eat less salt, if told by your dietitian. To do this: ? Avoid eating processed or pre-made food. ? Avoid eating fast food. ??? Eat less animal protein, including cheese, meat, poultry, or fish, if told by your dietitian. To do this: ? Limit the number of times you have meat, poultry, fish, or cheese each week. Eat a diet free of meat at least 2 days a week. ? Eat only one serving each day of meat, poultry, fish, or seafood. ? When you prepare animal protein, cut pieces into small portion sizes. For most meat and fish, one serving is about the size of the palm of your hand. ??? Eat at least five servings of fresh fruits and vegetables each day. To do this: ? Keep fruits and vegetables on hand for snacks. ? Eat one piece of fruit or a handful of berries with breakfast. ? Have a salad and fruit at lunch. ? Have two kinds of vegetables at dinner. ??? Limit foods that are high in a substance called oxalate. These include: ? Spinach (cooked), rhubarb, beets, sweet potatoes, and [place] chard. ? Peanuts. ? Potato chips, south korean fries, and baked potatoes with skin on. ? Nuts and nut products. ? Chocolate. ??? If you regularly take a diuretic medicine, make sure to eat at least 1 or 2 servings of fruits or vegetables that are high in potassium each day. These include: ? Avocado. ? Banana. ? [place], prune, carrot, or tomato juice. ? Baked potato. ? Cabbage. ? Beans and split peas. Lifestyle ??? Drink enough fluid to keep your urine pale yellow. This is the most important thing you can do. Spread your fluid intake throughout the day. ??? If you drink alcohol: ? Limit how much you use to: ? 0???1 drink a day for women who are not . ? 0???2 drinks a day for men. ? Be aware of how much alcohol is in your drink. In the [place] one drink equals one 12 oz bottle of beer (355 mL), one 5 oz glass of wine (148 mL), or one 1?? oz glass of hard liquor (44 mL). ??? Lose weight if told by your health care provider. Work with your dietitian to find an eating plan and weight loss strategies that work best for you. General information ??? Talk to your health care provider and dietitian about taking daily supplements. You may be told the following depending on your health and the cause of your kidney stones: ? Not to take supplements with vitamin C. ? To take a calcium supplement. ? To take a daily probiotic supplement. ? To take other supplements such as magnesium, fish oil, or vitamin B6. ??? Take brui-szs-ugdyiyf and prescription medicines only as told by your health care provider. These include supplements. What foods should I limit? Limit your intake of the following foods, or eat them as told by your dietitian. Vegetables Spinach. Rhubarb. Beets. Canned vegetables. Pickles. Olives. Baked potatoes with skin. Grains Wheat bran. Baked goods. Salted crackers. Cereals high in sugar. Meats and other proteins Nuts. Nut butters. Large portions of meat, poultry, or fish. Salted, precooked, or cured meats, such as sausages, meat loaves, and hot dogs. Dairy Cheese. Beverages Regular soft drinks. Regular vegetable juice. Seasonings and condiments Seasoning blends with salt. Salad dressings. Soy sauce. Ketchup. Barbecue sauce. Other foods Canned soups. Canned pasta sauce. Casseroles. Pizza. Lasagna. Frozen meals. Potato chips. Gabonese fries. The items listed above may not be a complete list of foods and beverages you should limit. Contact a dietitian for more information. What foods should I avoid? Talk to your dietitian about specific foods you should avoid based on the type of kidney stones you have and your overall health. Fruits Grapefruit. The item listed above may not be a complete list of foods and beverages you should avoid. Contact a dietitian for more information. Summary ??? Kidney stones are deposits of minerals and salts that form inside your kidneys. ??? You can lower your risk of kidney stones by making changes to your diet. ??? The most important thing you can do is drink enough fluid. Drink enough fluid to keep your urine pale yellow. ??? Talk to your dietitian about how much calcium you should have each day, and eat less salt and animal protein as told by your dietitian. This information is not intended to replace advice given to you by your health care provider. Make sure you discuss any questions you have with your health care provider. Document Revised: 02/11/2020 Document Reviewed: 02/11/2020 [employer] Patient Education ?? 2020 [employer]. ondansetron (oral) (on OTTO se aime) James Ramirez [employer] What is the most important information I should know about ondansetron? You should not use ondansetron if you are also using apomorphine (Apokyn). What is ondansetron? Ondansetron blocks the actions of chemicals in the body that can trigger nausea and vomiting. Ondansetron is used to prevent nausea and vomiting that may be caused by surgery, cancer chemotherapy, or radiation treatment. Ondansetron may be used for purposes not listed in this medication guide. What should I discuss with my health care provider before taking ondansetron? You should not use ondansetron if: ?? you are also using apomorphine (Apokyn); or ?? you are allergic to ondansetron or similar medicines (dolasetron, granisetron, palonosetron). To make sure ondansetron is safe for you, tell your doctor if you have: ?? liver disease; ?? an electrolyte imbalance (such as low levels of potassium or magnesium in your blood); ?? congestive heart failure, slow heartbeats; ?? a personal or family history of long QT syndrome; or ?? a blockage in your digestive tract (stomach or intestines). Ondansetron is not expected to harm an unborn baby. Tell your doctor if you are . It is not known whether ondansetron passes into breast milk or if it could harm a nursing baby. Tell your doctor if you are breast-feeding a baby. Ondansetron is not approved for use by anyone younger than 4 years old. Ondansetron orally disintegrating tablets may contain phenylalanine. Tell your doctor if you have phenylketonuria (PKU). How should I take ondansetron? Follow all directions on your prescription label. Do not take this medicine in larger or smaller amounts or for longer than recommended. Ondansetron can be taken with or without food. The first dose of ondansetron is usually taken before the start of your surgery, chemotherapy, or radiation treatment. Follow your doctor's dosing instructions very carefully. Take the ondansetron regular tablet with a full glass of water. To take the orally disintegrating tablet (Zofran ODT): ?? Keep the tablet in its blister pack until you are ready to take it. Open the package and peel back the foil. Do not push a tablet through the foil or you may damage the tablet. ?? Use dry hands to remove the tablet and place it in your mouth. ?? Do not swallow the tablet whole. Allow it to dissolve in your mouth without chewing. ?? Swallow several times as the tablet dissolves. To use ondansetron oral soluble film (strip) (Zuplenz): ?? Keep the strip in the foil pouch until you are ready to use the medicine. ?? Using dry hands, remove the strip and place it on your tongue. It will begin to dissolve right away. ?? Do not swallow the strip whole. Allow it to dissolve in your mouth without chewing. ?? Swallow several times after the strip dissolves. If desired, you may drink liquid to help swallow the dissolved strip. ?? Wash your hands after using Zuplenz. Measure liquid medicine with the dosing syringe provided, or with a special dose-measuring spoon or medicine cup. If you do not have a dose-measuring device, ask your pharmacist for one. Store at room temperature away from moisture, heat, and light. Store liquid medicine in an upright position. What happens if I miss a dose? Take the missed dose as soon as you remember. Skip the missed dose if it is almost time for your next scheduled dose. Do not take extra medicine to make up the missed dose. What happens if I overdose? Seek emergency medical attention or call the Poison Help line at . Overdose symptoms may include sudden loss of vision, severe constipation, feeling light-headed, or fainting. What should I avoid while taking ondansetron? Ondansetron may impair your thinking or reactions. Be careful if you drive or do anything that requires you to be alert. What are the possible side effects of ondansetron? Get emergency medical help if you have signs of an allergic reaction: rash, hives; fever, chills, difficult breathing; swelling of your face, lips, tongue, or throat. Call your doctor at once if you have: ?? severe constipation, stomach pain, or bloating; ?? headache with chest pain and severe dizziness, fainting, fast or pounding heartbeats; ?? fast or pounding heartbeats; ?? jaundice (yellowing of the skin or eyes); ?? blurred vision or temporary vision loss (lasting from only a few minutes to several hours); ?? high levels of serotonin in the body--agitation, hallucinations, fever, fast heart rate, overactive reflexes, nausea, vomiting, diarrhea, loss of coordination, fainting. Common side effects may include: ?? diarrhea or constipation; ?? headache; ?? drowsiness; or ?? tired feeling. This is not a complete list of side effects and others may occur. Call your doctor for medical advice about side effects. You may report side effects to FDA at 6-050-GCC-7732. What other drugs will affect ondansetron? Ondansetron can cause a serious heart problem, especially if you use certain medicines at the same time, including antibiotics, antidepressants, heart rhythm medicine, antipsychotic medicines, and medicines to treat cancer, malaria, HIV or AIDS. Tell your doctor about all medicines you use, and those you start or stop using during your treatment with ondansetron. Taking ondansetron while you are using certain other medicines can cause high levels of serotonin to build up in your body, a condition called 'serotonin syndrome,' which can be fatal. Tell your doctor if you also use: ?? medicine to treat depression; ?? medicine to treat a psychiatric disorder; ?? a narcotic (opioid) medication; or ?? medicine to prevent nausea and vomiting. This list is not complete and many other drugs can interact with ondansetron. This includes prescription and ytec-aln-wpiyayf medicines, vitamins, and herbal products. Give a list of all your medicines to any healthcare provider who treats you. Where can I get more information? Your pharmacist can provide more information about ondansetron. Remember, keep this and all other medicines out of the reach of children, never share your medicines with others, and use this medication only for the indication prescribed. Every effort has been made to ensure that the information provided by [employer] is accurate, up-to-date, and complete, but no guarantee is made to that effect. Drug information contained herein may be time sensitive. [employer] information has been compiled for use by healthcare practitioners and consumers in the [place] and therefore [employer] does not warrant that uses outside of the [place] are appropriate, unless specifically indicated otherwise. [employer] drug information does not endorse drugs, diagnose patients or recommend therapy. [employer] drug information is an informational resource designed to assist licensed healthcare practitioners in caring for their patients and/or to serve consumers viewing this service as a supplement to, and not a substitute for, the expertise, skill, knowledge and judgment of healthcare practitioners. The absence of a warning for a given drug or drug combination in no way should be construed to indicate that the drug or drug combination is safe, effective or appropriate for any given patient. [facility] does not assume any responsibility for any aspect of healthcare administered with the aid of information [facility] provides. The information contained herein is not intended to cover all possible uses, directions, precautions, warnings, drug interactions, allergic reactions, or adverse effects. If you have questions about the drugs you are taking, check with your doctor, nurse or pharmacist. Copyright 4150-2155 [employer] Version: 13.01. Revision Date: 12/23/2015. levofloxacin (oral) (SOPHY Franco What is the most important information I should know about levofloxacin? Levofloxacin can cause serious side effects, including tendon problems, nerve damage, serious mood or behavior changes, or low blood sugar. Stop using this medicine and call your doctor at once if you have symptoms such as: headache, hunger, irritability, numbness, tingling, burning pain, confusion, agitation, paranoia, problems with memory or concentration, thoughts of suicide, or sudden pain or movement problems in any of your joints. In rare cases, levofloxacin may cause damage to your aorta, which could lead to dangerous bleeding or . Get emergency medical help if you have severe and constant pain in your chest, stomach, or back. What is levofloxacin? Levofloxacin is a fluoroquinolone (wjft-h-GOEE-o-lone) antibiotic that fights bacteria in the body. Levofloxacin is used to treat different types of bacterial infections. Levofloxacin is also used to treat people who have been exposed to anthrax or certain types of plague. Fluoroquinolone antibiotics can cause serious or disabling side effects. Levofloxacin should be used only for infections that cannot be treated with a safer antibiotic. Levofloxacin may also be used for purposes not listed in this medication guide. What should I discuss with my healthcare provider before taking levofloxacin? You should not use this medicine if you are allergic to levofloxacin or other fluoroquinolones (ciprofloxacin, gemifloxacin, moxifloxacin, norfloxacin, ofloxacin, and others). Levofloxacin may cause swelling or tearing of a tendon (the fiber that connects bones to muscles in the body), especially in the Achilles' tendon of the heel. This can happen during treatment or up to several months after you stop taking levofloxacin. Tendon problems may be more likely in certain people (children and older adults, or people who use steroid medicine or have had an organ transplant). Tell your doctor if you have ever had: ?? tendon problems, bone problems, arthritis or other joint problems (especially in children); ?? blood circulation problems, aneurysm, narrowing or hardening of the arteries; ?? heart problems, high blood pressure; ?? a genetic disease such as Marfan syndrome or Ehler's-Danlos syndrome; ?? diabetes; ?? a muscle or nerve disorder, such as myasthenia gravis; ?? kidney disease; ?? seizures or epilepsy; ?? a head injury or brain tumor; ?? long QT syndrome (in you or a family member); or ?? low levels of potassium in your blood (hypokalemia). Do not give this medicine to a child without medical advice. It is not known whether this medicine will harm an unborn baby. Tell your doctor if you are . You should not breast-feed while using this medicine. How should I take levofloxacin? Follow all directions on your prescription label and read all medication guides or instruction sheets. Use the medicine exactly as directed. Take levofloxacin with water, at the same time each day. Drink extra fluids to keep your kidneys working properly while taking this medicine. You may take levofloxacin tablets with or without food. Take levofloxacin oral solution (liquid) on an empty stomach, at least 1 hour before or 2 hours after a meal. Measure liquid medicine carefully. Use the dosing syringe provided, or use a medicine dose-measuring device (not a kitchen spoon). Use this medicine for the full prescribed length of time, even if your symptoms quickly improve. Skipping doses can increase your risk of infection that is resistant to medication. Levofloxacin will not treat a viral infection such as the flu or a common cold. Do not share levofloxacin with another person. This medicine may affect a drug-screening urine test and you may have false results. Tell the laboratory staff that you use levofloxacin. Store at room temperature away from moisture and heat. Keep the bottle tightly closed when not in use. What happens if I miss a dose? Take the medicine as soon as you can, but skip the missed dose if it is almost time for your next dose. Do not take two doses at one time. What happens if I overdose? Seek emergency medical attention or call the Poison Help line at . What should I avoid while taking levofloxacin? Avoid driving or hazardous activity until you know how this medicine will affect you. Your reactions could be impaired. Antibiotic medicines can cause diarrhea, which may be a sign of a new infection. If you have diarrhea that is watery or bloody, call your doctor before using anti-diarrhea medicine. Levofloxacin could make you sunburn more easily. Avoid sunlight or tanning beds. Wear protective clothing and use sunscreen (SPF 30 or higher) when you are outdoors. Tell your doctor if you have severe burning, redness, itching, rash, or swelling after being in the sun. What are the possible side effects of levofloxacin? Get emergency medical help if you have signs of an allergic reaction (hives, difficult breathing, swelling in your face or throat) or a severe skin reaction (fever, sore throat, burning in your eyes, skin pain, red or purple skin rash that spreads and causes blistering and peeling). Levofloxacin can cause serious side effects, including tendon problems, side effects on your nerves (which may cause permanent nerve damage), serious mood or behavior changes (after just one dose), or low blood sugar (which can lead to coma). Stop taking this medicine and call your doctor at once if you have: ?? low blood sugar--headache, hunger, sweating, irritability, dizziness, nausea, fast heart rate, or feeling anxious or shaky; ?? nerve symptoms in your hands, arms, legs, or feet--numbness, weakness, tingling, burning pain; ?? serious mood or behavior changes--nervousness, confusion, agitation, paranoia, hallucinations, memory problems, trouble concentrating, thoughts of suicide; or ?? signs of tendon rupture--sudden pain, swelling, bruising, tenderness, stiffness, movement problems, or a snapping or popping sound in any of your joints (rest the joint until you receive medical care or instructions). In rare cases, levofloxacin may cause damage to your aorta, the main blood artery of the body. This could lead to dangerous bleeding or . Get emergency medical help if you have severe and constant pain in your chest, stomach, or back. Stop taking levofloxacin and call your doctor at once if you have: ?? severe stomach pain, diarrhea that is watery or bloody; ?? fast or pounding heartbeats, fluttering in your chest, shortness of breath, and sudden dizziness (like you might pass out); ?? the first sign of any skin rash, no matter how mild; ?? muscle weakness, breathing problems; ?? seizure (convulsions); ?? increased pressure inside the skull--severe headaches, ringing in your ears, dizziness, nausea, vision problems, pain behind your eyes; or ?? liver problems--upper stomach pain, loss of appetite, dark urine, chet-colored stools, jaundice (yellowing of the skin or eyes). Common side effects may include: ?? nausea, constipation, diarrhea; ?? headache, dizziness; or ?? trouble sleeping. This is not a complete list of side effects and others may occur. Call your doctor for medical advice about side effects. You may report side effects to FDA at 7-491-FLM-2159. What other drugs will affect levofloxacin? Some medicines can make levofloxacin much less effective when taken at the same time. If you take any of the following medicines, take your levofloxacin dose 2 hours before or 2 hours after you take the other medicine. ?? antacids that contain magnesium or aluminum (such as Maalox, Mylanta, or Rolaids), or the ulcer medicine sucralfate (Carafate); ?? didanosine (Videx) powder or chewable tablets; or ?? vitamin or mineral supplements that contain aluminum, iron, magnesium, or zinc. Tell your doctor about all your other medicines, especially: ?? theophylline; ?? a diuretic or 'water pill'; ?? heart rhythm medication; ?? insulin or oral diabetes medicine (check your blood sugar regularly); ?? medicine to treat depression or mental illness; ?? steroid medicine (such as prednisone); ?? a blood thinner--warfarin, Coumadin, Jantoven; or ?? NSAIDs (nonsteroidal anti-inflammatory drugs)--aspirin, ibuprofen (Advil, Motrin), naproxen (Aleve), celecoxib, diclofenac, indomethacin, meloxicam, and others. This list is not complete. Other drugs may affect levofloxacin, including prescription and nobt-wqg-unxzjyp medicines, vitamins, and herbal products. Not all possible drug interactions are listed here. Where can I get more information? Your pharmacist can provide more information about levofloxacin. Remember, keep this and all other medicines out of the reach of children, never share your medicines with others, and use this medication only for the indication prescribed. Every effort has been made to ensure that the information provided by [employer] is accurate, up-to-date, and complete, but no guarantee is made to that effect. Drug information contained herein may be time sensitive. [employer] information has been compiled for use by healthcare practitioners and consumers in the [place] and therefore [employer] does not warrant that uses outside of the [place] are appropriate, unless specifically indicated otherwise. [employer] drug information does not endorse drugs, diagnose patients or recommend therapy. [employer] drug information is an informational resource designed to assist licensed healthcare practitioners in caring for their patients and/or to serve consumers viewing this service as a supplement to, and not a substitute for, the expertise, skill, knowledge and judgment of healthcare practitioners. The absence of a warning for a given drug or drug combination in no way should be construed to indicate that the drug or drug combination is safe, effective or appropriate for any given patient. [employer] does not assume any responsibility for any aspect of healthcare administered with the aid of information [employer] provides. The information contained herein is not intended to cover all possible uses, directions, precautions, warnings, drug interactions, allergic reactions, or adverse effects. If you have questions about the drugs you are taking, check with your doctor, nurse or pharmacist. Copyright 3455-7958 [employer] Version: 14.01. Revision Date: 03/10/2018. oxycodone (ox i KOE done) Oxaydo, OxyCONTIN, Oxyfast, OxyIR, Roxicodone, Xtampza ER What is the most important information I should know about oxycodone? MISUSE OF OPIOID MEDICINE CAN CAUSE ADDICTION, OVERDOSE, OR . Keep the medication in a place where others cannot get to it. Taking opioid medicine during may cause life-threatening withdrawal symptoms in the . Fatal side effects can occur if you use opioid medicine with alcohol, or with other drugs that cause drowsiness or slow your breathing. What is oxycodone? Oxycodone is an opioid pain medication used to treat moderate to severe pain. The extended-release form of oxycodone is for tagxvr-ysi-sahqe treatment of pain and should not be used on an as-needed basis for pain. Oxycodone may also be used for purposes not listed in this medication guide. What should I discuss with my healthcare provider before using oxycodone? You should not use oxycodone if you are allergic to it, or if you have: ?? severe asthma or breathing problems; or ?? a blockage in your stomach or intestines. You should not use oxycodone unless you are already using a similar opioid medicine and are tolerant to it. Most brands of oxycodone are not approved for use in people under 18. OxyContin should not be given to a child younger than 11 years old. Tell your doctor if you have ever had: ?? breathing problems, sleep apnea; ?? a head injury, or seizures; ?? drug or alcohol addiction, or mental illness; ?? liver or kidney disease; ?? urination problems; or ?? problems with your gallbladder, pancreas, or thyroid. If you use opioid medicine while you are , your baby could become dependent on the drug. This can cause life-threatening withdrawal symptoms in the baby after it is born. Babies born dependent on opioids may need medical treatment for several weeks. Ask a doctor before using opioid medicine if you are . Tell your doctor if you notice severe drowsiness or slow breathing in the nursing baby. How should I use oxycodone? Follow the directions on your prescription label and read all medication guides. Never use oxycodone in larger amounts, or for longer than prescribed. Tell your doctor if you feel an increased urge to take more of this medicine. Never share opioid medicine with another person, especially someone with a history of drug abuse or addiction. MISUSE CAN CAUSE ADDICTION, OVERDOSE, OR . Keep the medication in a place where others cannot get to it. Selling or giving away opioid medicine is against the law. Stop taking all other tzzxtx-kbn-dymzh opioid pain medicines when you start taking extended-release oxycodone. Take oxycodone with food. Swallow the capsule or tablet whole to avoid exposure to a potentially fatal overdose. Do not crush, chew, break, open, or dissolve. If you cannot swallow a capsule whole, open it and sprinkle the medicine into a spoonful of pudding or applesauce. Swallow the mixture right away without chewing. Do not save it for later use. Never crush or break an oxycodone pill to inhale the powder or mix it into a liquid to inject the drug into your vein. This can cause in . Measure liquid medicine carefully. Use the dosing syringe provided, or use a medicine dose-measuring device (not a kitchen spoon). You should not stop using oxycodone suddenly. Follow your doctor's instructions about tapering your dose. Store at room temperature, away from heat, moisture, and light. Keep track of your medicine. Oxycodone is a drug of abuse and you should be aware if anyone is using your medicine improperly or without a prescription. Do not keep leftover opioid medication. Just one dose can cause in someone using this medicine accidentally or improperly. Ask your pharmacist where to locate a drug take-back disposal program. If there is no take-back program, flush the unused medicine down the toilet. What happens if I miss a dose? Since oxycodone is used for pain, you are not likely to miss a dose. Skip any missed dose if it is almost time for your next dose. Do not use two doses at one time. What happens if I overdose? Seek emergency medical attention or call the Poison Help line at . An opioid overdose can be fatal, especially in a child or other person using the medicine without a prescription. Overdose symptoms may include severe drowsiness, pinpoint pupils, slow breathing, or no breathing. Your doctor may recommend you get naloxone (a medicine to reverse an opioid overdose) and keep it with you at all times. A person caring for you can give the naloxone if you stop breathing or don't wake up. Your caregiver must still get emergency medical help and may need to perform CPR (cardiopulmonary resuscitation) on you while waiting for help to arrive. Anyone can buy naloxone from a pharmacy or local health department. Make sure any person caring for you knows where you keep naloxone and how to use it. What should I avoid while using oxycodone? Do not drink alcohol. Dangerous side effects or could occur. Avoid driving or operating machinery until you know how oxycodone will affect you. Dizziness or severe drowsiness can cause falls or other accidents. Avoid medication errors. Always check the brand and strength of oxycodone you get from the pharmacy. What are the possible side effects of oxycodone? Get emergency medical help if you have signs of an allergic reaction: hives; difficult breathing; swelling of your face, lips, tongue, or throat. Opioid medicine can slow or stop your breathing, and may occur. A person caring for you should give naloxone and/or seek emergency medical attention if you have slow breathing with long pauses, blue colored lips, or if you are hard to wake up. Call your doctor at once if you have: ?? noisy breathing, sighing, shallow breathing, breathing that stops during sleep; ?? a slow heart rate or weak pulse; ?? a light-headed feeling, like you might pass out; ?? confusion, unusual thoughts or behavior; ?? seizure (convulsions); ?? low cortisol levels-- nausea, vomiting, loss of appetite, dizziness, worsening tiredness or weakness; or ?? high levels of serotonin in the body--agitation, hallucinations, fever, sweating, shivering, fast heart rate, muscle stiffness, twitching, loss of coordination, nausea, vomiting, diarrhea. Serious breathing problems may be more likely in older adults and in those who are debilitated or have wasting syndrome or chronic breathing disorders. Common side effects may include: ?? drowsiness, headache, dizziness, tiredness; or ?? constipation, stomach pain, nausea, vomiting. This is not a complete list of side effects and others may occur. Call your doctor for medical advice about side effects. You may report side effects to FDA at 1-020-SRE-7164. What other drugs will affect oxycodone? You may have breathing problems or withdrawal symptoms if you start or stop taking certain other medicines. Tell your doctor if you also use an antibiotic, antifungal medication, heart or blood pressure medication, seizure medication, or medicine to treat HIV or hepatitis C. Opioid medication can interact with many other drugs and cause dangerous side effects or . Be sure your doctor knows if you also use: ?? cold or allergy medicines, bronchodilator asthma/COPD medication, or a diuretic ('water pill'); ?? medicines for motion sickness, irritable bowel syndrome, or overactive bladder; ?? other opioids--opioid pain medicine or prescription cough medicine; ?? a sedative like Valium--diazepam, alprazolam, lorazepam, Xanax, Klonopin, Versed, and others; ?? drugs that make you sleepy or slow your breathing--a sleeping pill, muscle relaxer, medicine to treat mood disorders or mental illness; or ?? drugs that affect serotonin levels in your body--a stimulant, or medicine for depression, Parkinson's disease, migraine headaches, serious infections, or nausea and vomiting. This list is not complete and many other drugs may affect oxycodone. This includes prescription and skdi-fkn-jhfumvl medicines, vitamins, and herbal products. Not all possible drug interactions are listed here. Where can I get more information? Your pharmacist can provide more information about oxycodone. Remember, keep this and all other medicines out of the reach of children, never share your medicines with others, and use this medication only for the indication prescribed. Every effort has been made to ensure that the information provided by [employer]') is accurate, up-to-date, and complete, but no guarantee is made to that effect. Drug information contained herein may be time sensitive. [employer] information has been compiled for use by healthcare practitioners and consumers in the [place] and therefore [employer] does not warrant that uses outside of the [place] are appropriate, unless specifically indicated otherwise. [employer] drug information does not endorse drugs, diagnose patients or recommend therapy. [employer] drug information is an informational resource designed to assist licensed healthcare practitioners in caring for their patients and/or to serve consumers viewing this service as a supplement to, and not a substitute for, the expertise, skill, knowledge and judgment of healthcare practitioners. The absence of a warning for a given drug or drug combination in no way should be construed to indicate that the drug or drug combination is safe, effective or appropriate for any given patient. [employer] does not assume any responsibility for any aspect of healthcare administered with the aid of information [employer] provides. The information contained herein is not intended to cover all possible uses, directions, precautions, warnings, drug interactions, allergic reactions, or adverse effects. If you have questions about the drugs you are taking, check with your doctor, nurse or pharmacist. Copyright 9033-6617 [employer] Version: 14.02. Revision Date: 03/31/2020. Emergency Awareness and Preventative Care STROKE is [...] Assistance with quitting is available by contacting 9-128-QLDANOW. This is a free resource providing counseling, support, and referral. Or you may contact your personal physician. [employer] Suicide Prevention Lifeline: The National Suicide Prevention [...] This Visit (last charted value for your 06/21/2021 visit) Hematology 06/23/2021 5:47 AM WBC: 7.8 K/uL -- Normal range between ( 4.5 and 10.5 ) RBC: 3.86 Million/uL -- Normal range between ( 3.93 and 5.22 ) Hct: 33.9 % -- Normal range between ( 34.1 and 44.9 ) Hgb: 11.1 g/dL -- Normal range between ( 11.2 and 15.7 ) Platelet Count: 343 K/uL -- Normal range between ( 163 and 369 ) MCH: 28.8 pg -- Normal range between ( 25.6 and 32.2 ) MCHC: 32.7 Gram/dL -- Normal range between ( 32.2 and 36.5 ) MCV: 87.8 fL -- Normal range between ( 79.0 and 94.8 ) Slide Review: No Eos %: 2.6 % -- Normal range between ( 0.0 and 7.0 ) [place] #: 0.68 K/uL -- Normal range between ( 0.16 and 1.00 ) Eos #: 0.20 x10(3)/uL -- Normal range between ( 0.00 and 0.80 ) [place] %: 8.8 % -- Normal range between ( 3.0 and 9.0 ) Baso %: 0.4 % -- Normal range between ( 0.0 and 1.5 ) Baso #: 0.03 x10(3)/uL -- Normal range between ( 0.00 and 0.20 ) RDW: 12.6 % -- Normal range between ( 11.7 and 14.9 ) Neut %: 54.2 % -- Normal range between ( 34.0 and 71.0 ) Neut #: 4.22 K/uL -- Normal range between ( 1.56 and 6.13 ) Lymph %: 33.7 % -- Normal range between ( 19.3 and 53.1 ) Lymph #: 2.62 x10(3)/uL -- Normal range between ( 1.00 and 3.90 ) MPV: 9.2 fL -- Normal range between ( 9.4 and 12.4 ) IG#: 0.02 x10(3)/uL -- Normal range between ( 0.00 and 0.05 ) IG%: 0.30 % -- Normal range between ( 0.00 and 0.60 ) General Chemistry 06/23/2021 5:47 AM Creatinine Level: 0.80 mg/dL -- Normal range between ( 0.55 and 1.02 ) Sodium Level: 141 mmol/L -- Normal range between ( 136 and 146 ) Potassium Level: 3.4 mmol/L -- Normal range between ( 3.5 and 5.1 ) Chloride Level: 109 mmol/L -- Normal range between ( 102 and 112 ) Carbon Dioxide Level: 26 mmol/L -- Normal range between ( 21 and 32 ) Anion Gap: 9 -- Normal range between ( 9 and 20 ) Bun/Creatinine: 15.0 -- Normal range between ( 8.0 and 20.0 ) Calcium Level: 8.9 mg/dL -- Normal range between ( 8.4 and 10.1 ) eGFR : >60 mL/min/1.73m2 Electronically signed by Interface, [facility] Conversion Retail Stock Clerk Cerner at 06/17/2022 9:46 AM CDT documented in this encounter Plan of Treatment Not on file documented as of this encounter Visit Diagnoses Not on filedocumented in this encounter Care Teams Electrician Shop Relationship Specialty Start Date End Date Provider, Not In System [place] PCP - General 01/05/23 documented as of this encounter
--- OUTSIDE RECORDS SUMMARY | 2024-08-17 08:51 | XMS_ITS | Encounter Summary ---
Author Organization [employer] Address [address] [place] [address] Care Team Providers Care Hospice Fellow Name Role Phone Provider, Not In System Primary Care Provider Un available Encounter Details Date Type Department Care Team (Late st Contact Info) Description 08/14/2021 Transcribed Document [facility] [place] [facility] [place] [address] ProviderAilyn MD [address] [place] [address] Social History Tobacco Use Types [...] Note - Ailyn Cavazos MD - 08/14/2021 3:25 PM CDT [address] [address] VENECIA NAGY :1965 Visit Time:08/14/2021 What to do next 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 Discharge Follow Up Instructions: Office one week with YURI and cysto stent removal at [facility] Urology on [address] Activity: Discharge Activity: Activity as tolerated Diet: Discharge Diet: Resume usual diet as tolerated Follow-Up Appointments Follow Up with ELEONORA BARAHONA MD-URO When 08/21/2021 01:00 PM EDT Comments Call the office to get instructions on how to get KUB x-ray before appointment. Appointment has been made Where: [facility] [address] [place], [place] [phone] Medications What How Much When Instructions Next Dose acetaminophen-oxyCODONE (Percocet 5/ 325 oral tablet) 1 Tablet(s) Oral One Time Order as needed for Pain (Moderate 4-6) Pickup at [facility]/pharmacy #3016 ciprofloxacin (Cipro 500 mg oral tablet) 1 Tablet(s) Oral Every [address] [facility] ascorbic acid (Vitamin C 500 mg oral tablet) 1 Tablet(s) Oral Every Day multivitamin (Multiple Vitamins oral tablet) 1 Tablet(s) Oral Every Day Pharmacy Information [facility]/pharmacy #[id number]: [address] [place], [place] [phone] Take your medications faithfully. Do NOT skip [...] activities are safe for you. ??? Take iyfr-zvk-krrszoa and prescription medicines only as told by [...] these instructions at home: Medicines ??? Take mdns-ems-waufrvz and prescription medicines only as told by [...] or treat constipation, such as: ? Take exxz-nik-bgkancm or prescription medicines. ? Eat foods that [...] of blood in your urine. ??? Take vglc-xwf-tqttjoj and prescription medicines only as told by [...] provider. Document Revised: 10/30/2018 Document Reviewed: 10/30/2018 [employer] Patient Education ?? 2020 [employer]. Lithotripsy, Care After This sheet gives you [...] these instructions at home: Medicines ??? Take ovlt-rpv-fbxzvwi and prescription medicines only as told by [...] provider. Document Revised: 12/02/2019 Document Reviewed: 12/02/2019 [employer] Patient Education ?? 2020 [employer] Emergency Awareness and Preventative Care STROKE [...] Assistance with quitting is available by contacting 4-602-FCLXNOW. This is a free resource providing counseling, [...] was given the opportunity to ask questions. Patient/Advertising Columnist Name: Patient/Advertising Columnist Signature: Relationship to Patient: Clinician/Hospital Advertising Columnist Signature: Date: documented in this encounter Plan of Treatment Not on file documented as of this encounter Visit Diagnoses Not on filedocumented in this encounter Care Teams Hospice Fellow Relationship Specialty Start Date End Date Provider, Not In System [place] PCP - General 01/05/23 documented as of this encounter
--- OUTSIDE RECORDS SUMMARY | 2024-08-17 08:51 | XMS_ITS | Encounter Summary ---
Author Organization [employer] Address [address] [place] [address] Care Team Providers Care Events Intern Name Role Phone Provider, Not In System Primary Care Provider Un available Encounter Details Date Type Department Care Team (Late st Contact Info) Description 08/14/2021 Transcribed Document [facility] [place] [address] ProviderAilyn MD [address] [place], [place] [phone] Social History Tobacco Use Types Packs/Day Years [...] Note - Ailyn Cavazos MD - 08/14/2021 3:24 PM CDT Patient Education Materials Follows: Laser Therapy for Kidney Stones, Care After [...] these instructions at home: Medicines ??? Take mzve-itx-jqbcimf and prescription medicines only as told by [...] or treat constipation, such as: ? Take vbrk-xch-yyazcge or prescription medicines. ? Eat foods that [...] of blood in your urine. ??? Take kwxj-pnj-lprscsh and prescription medicines only as told by [...] provider. Document Revised: 10/30/2018 Document Reviewed: 10/30/2018 [employer] Patient Education ? 2020 [employer] Lithotripsy, Care After This sheet gives you [...] may continue to pass for up to 4?8 weeks. ? If you have severe pain [...] these instructions at home: Medicines ??? Take ebhc-hok-mwmzpwf and prescription medicines only as told by [...] you. Most people can resume normal activities 1?2 days after the procedure. ??? If you [...] provider. Document Revised: 12/02/2019 Document Reviewed: 12/02/2019 [employer] Patient Education ? 2020 [employer]. Pharmacology General Anesthesia, Adult, Care After This sheet [...] activities are safe for you. ??? Take pctq-vzb-vritway and prescription medicines only as told by [...] provider. Document Revised: 11/03/2020 Document Reviewed: 06/02/2020 [employer] Patient Education ? 2020 [employer]. documented in this encounter Plan of Treatment Not on file documented as of this encounter Visit Diagnoses Not on filedocumented in this encounter Care Teams Events Intern Relationship Specialty Start Date End Date Provider, Not In System [place] PCP - General 01/05/23 documented as of this encounter
--- OUTSIDE RECORDS SUMMARY | 2024-08-17 08:51 | XMS_ITS | Encounter Summary ---
Author Organization [employer] Address [address] [place] [address] Care Team Providers Care Frame Table Operator Helper Name Role Phone Provider, Not In System Primary Care Provider Un available Encounter Details Date Type Department Care Team (Late st Contact Info) Description 06/21/2021 Transcribed Document [facility] [place] [facility] [place] [address] ProviderAilyn MD [address] [place] [address] Social History Tobacco Use Types [...] Conversion Note - Ailyn ProviderMD - 06/21/2021 12:00 PM CDT [facility] Main OR Preop Summary Primary Physician: ANDREA BAILEY MD-URO Finalized Date/Time: 06/21/21 16:07:54 Pt. Name: VENECIA NAGYREGAN /Sex: 1965 Female Med Rec #: [id number] Physician: DAGOBERTO RAMOS MD Financial #: [id number] Pt. Type: O Room/Bed: /4 Admit/Disch: 06/21/21 12:27:00 - Institution: [facility] PreOp Case Times Entry 1 In Preop 06/21/21 12:35:00 Ready for Holding n/a Room Patient Ready for 06/21/21 13:20:00 Surgery Patient Out of Preop 06/21/21 16:07:00 Patient Out of n/a Holding Room Last Modified By: HEIDI SEGOVIA RN 06/21/21 16:07:50 [facility] PreOp Case Times Audit 06/21/21 16:07:50 Product Marketing Coordinator: [id number] Modifier: HEIDIHATFIELD <+> 1 Patient Out of Preop <+> 1 Patient Ready for Surgery Finalized By: HEIDI SEGOVIA RN Document Signatures Signed By: HEIDI SEGOVIA RN 06/21/21 16:07 Electronically signed by Rich [facility] Conversion Guest Services Director Cerner at 06/17/2022 9:51 AM CDT documented in this encounter Plan of Treatment Not on file documented as of this encounter Visit Diagnoses Not on filedocumented in this encounter Care Teams Frame Table Operator Helper Relationship Specialty Start Date End Date Provider, Not In System [place] PCP - General 01/05/23 documented as of this encounter
--- OUTSIDE RECORDS SUMMARY | 2024-08-17 08:51 | XMS_ITS | Encounter Summary ---
Author Organization [employer] Address [address] [place] [address] Care Team Providers Care Java Programmer Name Role Phone Provider, Not In System Primary Care Provider Un available Encounter Details Date Type Department Care Team (Late st Contact Info) Description 06/22/2021 Transcribed Document [facility] [address] [place] [address] Seth Helm MD [address] [place] [address] [address] [id number] Social History Tobacco Use Types Packs/Day Years [...] Conversion Note - Seth Helm MD - 06/22/2021 7:23 PM EDT Patient: VENECIA NAGY Age: 56 Years Sex: Female : 1965 Chief Complaint left flank pain, fever, vomiting Primary Care Provider no PCP History of Present Illness Ms. Nagy is a 56 year old female with no chronic medical problems who reports an 11 day history of intermittent left flank, LLQ pain with intermittent nausea, subjective night fevers. Her symptoms began when she closed on her house in [place] and was moving here to [place], she was dealing with the symptoms until yesterday she began vomiting and and was feeling badly in general, fever and went to [facility] ER. She was found to have [...] her nurse she had fever last night. Review of Systems Constitutional symptoms: no significant weight loss Skin symptoms: No rash, no pruritus Eye symptoms: No recent vision problems, no pain, no discharge. ENMT symptoms: No URI symptoms Respiratory symptoms: No shortness of breath, no cough, no hemoptysis. Cardiovascular symptoms: No chest pain, no diaphoresis, no syncope, no peripheral edema. Gastrointestinal symptoms: No diarrhea, no rectal bleeding, Genitourinary symptoms: No dysuria, no hematuria. Musculoskeletal symptoms: no Joint pain. Neurologic symptoms: No headache, no seizure, no numbness, no tingling, no focal weakness. Psychiatric symptoms: No anxiety, no depression. Endocrine symptoms: No polyuria, polydipsia Hematologic/Lymphatic symptoms: Bleeding tendency negative, Vital Signs T: 37 ??C TMIN: 37 ??C TMAX: 37.8 ??C HR: 60(Monitored) RR: 16 BP: 121/68 SpO2: 98% HT: 167.64 cm WT: 95 kg BMI: 33.8 Oxygen Settings (Last) Oxygen Therapy Mode: Room air (06/22/21 08:00:00) Oxygen Flow Rate: 8 Liter/Min (06/21/21 16:55:00) [...] intact. Psych: cooperative normal mood and affect Assessment/Plan 10mm obstructing left ureteral stone s/p left ureteral stent placement by Dr. Stern 06/21; pain control, plan to for stone extraction in 2-3 weeks Acute UTI without sepsis per Dr. Stern treat with quinolone, requesting urine cx results from [facility]. Full Code Her sister is her emergency contact/decision maker Gely Lara [phone] total time spent 45 minutes VTE Prophylaxis - Medical SCDs Problem List/Past Medical History Ongoing History of obstructive sleep apnea Kidney stone Sleep apnea Procedure/Surgical History adenoiectomy, , tonsilectomy, tubal ligation. SN - Proc - Procedure: Cystoscopy Stent Insertion (06/21/21 16:56:45) Home Medications (2) Active Multiple Vitamins oral tablet 1 Tab, Oral, Daily Vitamin C 500 mg oral tablet 500 mg = 1 Tab, Oral, Daily Allergies No Known Allergies Social History Alcohol Alcohol Use History Yes. Days/Week: 2. Tobacco Never (less than 100 in lifetime) Smoking Status. Never Smokeless Tobacco Status. Family History mother: pacemaker, HTN father: DE, DM, kidney stones Lab Results Test Name Test Result Date/Time Sodium Level 139 mmol/L 06/22/2021 14:31 EDT Potassium Level 3.7 mmol/L 06/22/2021 14:31 EDT Chloride Level 109 mmol/L 06/22/2021 14:31 EDT Carbon Dioxide Level 22 mmol/L 06/22/2021 14:31 EDT Anion Gap 12 06/22/2021 14:31 EDT Glucose Level 110 mg/dL (High) 06/22/2021 14:31 EDT Blood Urea Nitrogen 14 mg/dL 06/22/2021 14:31 EDT Creatinine Level 0.90 mg/dL 06/22/2021 14:31 EDT eGFR >60 mL/min/1.73m2 06/22/2021 14:31 EDT eGFR NonAfrican >60 mL/min/1.73m2 06/22/2021 14:31 EDT Bun/Creatinine 15.6 06/22/2021 14:31 EDT Calcium Level 8.7 mg/dL 06/22/2021 14:31 EDT WBC 9.5 K/uL 06/22/2021 14:31 EDT RBC 3.77 Million/uL (Low) 06/22/2021 14:31 EDT Hgb 10.9 g/dL (Low) 06/22/2021 14:31 EDT Hct 33.0 % (Low) 06/22/2021 14:31 EDT MCV 87.5 fL 06/22/2021 14:31 EDT MCH 28.9 pg 06/22/2021 14:31 EDT MCHC 33.0 Gram/dL 06/22/2021 14:31 EDT Platelet Count 324 K/uL 06/22/2021 14:31 EDT MPV 9.1 fL (Low) 06/22/2021 14:31 EDT RDW 12.6 % 06/22/2021 14:31 EDT Neut % 68.0 % 06/22/2021 14:31 EDT Neut # 6.44 K/uL (High) 06/22/2021 14:31 EDT Lymph % 18.6 % (Low) 06/22/2021 14:31 EDT Lymph # 1.76 x10(3)/uL 06/22/2021 14:31 EDT Jack % 11.0 % (High) 06/22/2021 14:31 EDT Jack # 1.04 K/uL (High) 06/22/2021 14:31 EDT Eos % 1.7 % 06/22/2021 14:31 EDT Eos # 0.16 x10(3)/uL 06/22/2021 14:31 EDT Baso % 0.4 % 06/22/2021 14:31 EDT Baso # 0.04 x10(3)/uL 06/22/2021 14:31 EDT Slide Review No 06/22/2021 14:31 EDT IG# 0.03 x10(3)/uL 06/22/2021 14:31 EDT IG% 0.30 % 06/22/2021 14:31 EDT Additional Documentation Code Status Full Code documented in this encounter Plan of Treatment Not on file documented as of this encounter Visit Diagnoses Not on filedocumented in this encounter Care Teams Java Programmer Relationship Specialty Start Date End Date Provider, Not In System [place] PCP - General 01/05/23 documented as of this encounter
--- OUTSIDE RECORDS SUMMARY | 2024-08-17 08:51 | XMS_ITS | Encounter Summary ---
Author Organization [employer] Address [address] [place] [address] Care Team Providers Care Landscape Technician Name Role Phone Provider, Not In System Primary Care Provider Un available Encounter Details Date Type Department Care Team (Late st Contact Info) Description 09/10/2021 Transcribed Document [facility] [place] Family Medicine [address] [place] [address] ProviderAilyn MD [address] [place], [place] [phone] Social History Tobacco Use Types Packs/Day Years Used Date Smoking Tobacco: Never Assessed Comments Unknown Sex and Gender Information Value Date Recorded Sex Assigned at Female 09/27/2021 12:48 PM CDT Legal Sex Female 1:41 PM CDT Gender Identity Female 09/27/2021 12:48 PM CDT Sexual Orientation Not on file documented as of this encounter Miscellaneous Notes * Andrew Conversion Note - Historical ProviderMD - 09/10/2021 8:04 PM CDT Electronically signed by [facility] Conversion Rn Licensed Practical Andrew at 06/17/2022 9:45 AM CDT documented in this encounter Plan of Treatment Not on file documented as of this encounter Visit Diagnoses Not on filedocumented in this encounter Care Teams Landscape Technician Relationship Specialty Start Date End Date Provider, Not In System [place] PCP - General 01/05/23 documented as of this encounter
--- OUTSIDE RECORDS SUMMARY | 2024-08-17 08:51 | XMS_ITS | Encounter Summary ---
Author Organization [employer] Address [address] [place] [address] Care Team Providers Care Template Clerk Name Role Phone Provider, Not In System Primary Care Provider Un available Encounter Details Date Type Department Care Team (Late st Contact Info) Description 08/14/2021 Transcribed Document [facility] [place] Family Medicine [facility] [address] ProviderAilyn MD [address] [place] [address] Social History Tobacco Use Types [...] 08/14/2021 1:57 PM CDT [facility] Main OR IntraOp Summary Primary Physician: ELEONORA BARAHONA MD-URO Finalized Date/Time: 08/14/21 14:45:37 Pt. Name: VENECIA NAGYREGAN /Sex: 1965 Female Med Rec #: [id number] Physician: ELEONORA BARAHONA MD-URO Financial #: [id number] Pt. Type: O Room/Bed: EAS/4 Admit/Disch: 08/14/21 11:32:00 - Institution: [facility] [place] IntraOp Case Attendance Entry 1 Entry 2 Entry 3 Case Attendee ELENOORA BARAHONA MD-URO Gale Heath TRAN, NGUYET, QUE FILTRATION PLANT OPERATOR-NURSE SANDING MACHINE BUFFER Role Performed Surgeon/Proceduralist, QUALITY LEAD/Nurse Territory Sales Consultant QUALITY LEAD/Nurse Territory Sales Consultant First Time In 08/14/21 13:40:00 08/14/21 13:40:00 08/14/21 13:40:00 Time Out 08/14/21 14:35:00 08/14/21 14:35:00 08/14/21 14:35:00 Procedure Extracorporeal Extracorporeal Extracorporeal Shockwave Lithotripsy Shockwave Lithotripsy Shockwave Lithotripsy Other Attendee STUDENT Superficial Wound Closed By: Last Modified By: Crissy Martinez, Crissy Green, Crissy Green, MANUELITO 08/14/21 14:43:57 08/14/21 13:33:28 08/14/21 14:43:57 Entry 4 Entry 5 Entry 6 Case Attendee Crissy Martinez, Kasey Brizuela, FAMILY RESOURCE MANAGEMENT PROFESSOR Kasey Glynn, FAMILY RESOURCE MANAGEMENT PROFESSOR Role Performed Pyrotechnic Assembler, First Scrub, First Scrub, First Time In 08/14/21 13:40:00 08/14/21 13:40:00 08/14/21 13:40:00 Time Out 08/14/21 14:28:00 08/14/21 14:35:00 08/14/21 14:35:00 Procedure Extracorporeal Extracorporeal Extracorporeal Shockwave Lithotripsy Shockwave Lithotripsy Shockwave Lithotripsy Other Attendee Superficial Wound Closed By: Last Modified By: Crissy Martinez RN Wellnitz, Sara, Crissy Green, MANUELITO 08/14/21 14:28:38 08/14/21 14:43:57 08/14/21 14:43:57 Entry 7 Entry 8 Case Attendee OTHER, ATTENDEE Rose Valdes, Manuelito Role Performed Tallier, Ancillary Pyrotechnic Assembler, First Time In 08/14/21 13:40:00 08/14/21 14:26:00 Time Out 08/14/21 14:35:00 08/14/21 14:35:00 Procedure Extracorporeal Extracorporeal Shockwave Lithotripsy Shockwave Lithotripsy Other Attendee PATRICA CLAYTON Superficial Wound Closed By: Last Modified By: Crissy Martinez, Crissy Green RN 08/14/21 14:24:01 08/14/21 14:43:57 [facility] IntraOp Case Attendance Audit 08/14/21 14:44:14 Directional Bore Operator: MIRI Modifier: WELLNISA <+> 5 Procedure 08/14/21 14:43:57 Directional Bore Operator: MRII Modifier: WELLNISA 1 <+> Time Out 1 <*> Procedure Extracorporeal Shockwave Lithotripsy 2 <+> Time Out 2 <*> Procedure Extracorporeal Shockwave Lithotripsy 3 <+> Time Out 3 <*> Procedure Extracorporeal Shockwave Lithotripsy 4 <*> Procedure Extracorporeal Shockwave Lithotripsy <+> 5 Time Out 6 <+> Time Out 6 <*> Procedure Extracorporeal Shockwave Lithotripsy 7 <+> Time Out 7 <*> Procedure Extracorporeal Shockwave Lithotripsy 8 <+> Time Out 8 <*> Procedure Extracorporeal Shockwave Lithotripsy 08/14/21 14:28:38 Directional Bore Operator: JAILYNNISA Modifier: WELLNISA 4 <+> Time Out 4 <*> Procedure Extracorporeal Shockwave Lithotripsy <+> 8 Case Attendee <+> 8 Role Performed <+> 8 Time In <+> 8 Procedure 08/14/21 14:24:32 Directional Bore Operator: TIMOA Modifier: WELLNISA 1 <*> Procedure Extracorporeal Shockwave Lithotripsy, Cystoscopy Adult 2 <*> Procedure Extracorporeal Shockwave Lithotripsy, Cystoscopy Adult 3 <*> Procedure Extracorporeal Shockwave Lithotripsy, Cystoscopy Adult 4 <*> Procedure Extracorporeal Shockwave Lithotripsy, Cystoscopy Adult 6 <*> Procedure Extracorporeal Shockwave Lithotripsy, Cystoscopy Adult 7 <*> Procedure Extracorporeal Shockwave Lithotripsy 08/14/21 14:24:01 Directional Bore Operator: TIMOA Modifier: WELLNISA <+> 7 Case Attendee <+> 7 Role Performed <+> 7 Time In <+> 7 Procedure <+> 7 Other Attendee 08/14/21 13:58:48 Directional Bore Operator: WELLNISA Modifier: WELLNISA 1 <+> Time In 1 <*> Procedure Extracorporeal Shockwave Lithotripsy, Cystoscopy Adult 2 <+> Time In 2 <*> Procedure Extracorporeal Shockwave Lithotripsy, Cystoscopy Adult 3 <+> Time In 3 <*> Procedure Extracorporeal Shockwave Lithotripsy, Cystoscopy Adult 4 <+> Time In 4 <*> Procedure Extracorporeal Shockwave Lithotripsy, Cystoscopy Adult <+> 5 Time In 6 <+> Time In 6 <*> Procedure Extracorporeal Shockwave Lithotripsy, Cystoscopy Adult [facility] IntraOp Case Times Entry 1 Patient In Room Time 08/14/21 13:40:00 Out Room Time 08/14/21 14:35:00 Anesthesia Start Time 08/14/21 13:40:00 Stop Time 08/14/21 14:35:00 Anesthesia Ready 08/14/21 13:40:00 Surgery / Procedure Times Start Time 08/14/21 13:57:00 Stop Time 08/14/21 14:31:00 Last Modified By: Crissy Martinez RN 08/14/21 13:52:13 [facility] IntraOp Case Times Audit 08/14/21 14:43:45 Directional Bore Operator: TIMOA Modifier: WELLNISA <+> 1 Out Room Time <+> 1 Stop Time <+> 1 Stop Time 08/14/21 13:57:42 Directional Bore Operator: WELLNISA Modifier: WELLNISA <+> 1 Start Time [facility] IntraOp Departure from OR Entry 1 Integumentary Assessment Integumentary WDL Assessment WDL Transfer/Handoff Transfer to PACU Phase I Handoff Method Bedside/Face to face Post-op Transport Nessa/[place] Via Patient Transport Gale Heath, Accompanied by FILTRATION PLANT OPERATOR-NURSE SANDING MACHINE BUFFER Last Modified By: Crissy Martinez RN 08/14/21 14:28:04 General Comments: REPORT GIVEN TO BEDSIDE NURSE [facility] IntraOp Fire Risk Assessment Entry 1 Fire Info Surgical Site or 0- No Incision Above the Xyphoid Open O2 Source 0- No (Mask or Cannula) Available Ignition 0- No (ESU, Laser, Light Source) Fire Risk 0 Assessment Score Fire Score Fire Risk Yes Assessment Complete Fire Risk Crissy Martinez, automotive parts manager Verified By Fire Risk 08/14/21 13:52:00 Assessment Verified Date/Time Fire Risk High Risk Protocol Yes Implemented Standard Fire Yes Safety Precautions Followed Last Modified By: Crissy Martinez RN 08/14/21 13:52:35 [facility] IntraOp General Case Garde Manager 1 Case Information OR OR 09 [facility] Case Level 1 Room Verified Yes Wound Class 2 - Clean-Contaminated Specialty Urology Anesthesia Type General ASA Class 2 Diagnosis Preop Diagnosis LEFT KIDNEY STONE; LEFT URETERAL STENT Postop Diagnosis SEE POPST OP NITE Wound Class Definitions Last Modified By: Crissy Martinez RN 08/14/21 13:55:19 [facility] IntraOp Intraoperative Assessment Entry 1 Handoff Method Other Valid History / Yes Physical in Chart Preoperative Yes Checklist Reviewed/Evaluated Allergies Reviewed Yes Patient is Latex No Sensitive Isolation Not applicable Precautions Noted Level of WDL Consciousness (WDL = Alert, Oriented to Person, Place, and Time) Skin Assessment Yes Verified Present Upon IVs Arrival to OR Last Modified By: Crissy Martinez RN 08/14/21 13:56:10 [facility] IntraOp Intraoperative Equipment Entry 1 Type Equipment Equipment Equipment Lithotripsy Machine Intraop Monitoring Electrocardiogram Three lead placement (ECG) Electrode Placement Blood Pressure Non-Invasive BP Device Source Blood Pressure Arm, right upper Location Antiembolic Devices Antiembolic Devices Sequential compression device, knee high Antiembolic Device Bilateral Location Antiembolic Device [id number] ID Number Scopes Photo/Video Documentation Photo No Video No Last Modified By: Crissy Martinez RN 08/14/21 14:21:41 [facility] IntraOp Intraoperative Equipment Audit 08/14/21 14:21:41 Directional Bore Operator: MIRI Modifier: MIRI Entry 1 was deleted. Higher numbered entries shifted one position to fill the gap. <-> 1 Photo No <-> 1 Video No <-> 1 Equipment <-> 1 Electrocardiogram (ECG) Electrode Three lead placement Placement <-> 1 Blood Pressure Location Arm, right upper <-> 1 Pulse Oximeter Probe Site Hand, left <-> 1 Antiembolic Devices Sequential compression device, knee high <-> 1 Antiembolic Device Location Bilateral <-> 1 Blood Pressure Source Non-Invasive BP Device <-> 1 Type Monitoring <-> 1 Antiembolic Device ID Number 08/14/21 13:57:49 Directional Bore Operator: MIRI Modifier: MIRI <+> 2 Photo <+> 2 Video <+> 2 Electrocardiogram (ECG) Electrode Placement <+> 2 Antiembolic Devices <+> 2 Antiembolic Device Location <+> 2 Blood Pressure Source <+> 2 Type [facility] IntraOp Patient Positioning Entry 1 Procedure Extracorporeal Shockwave Lithotripsy Body Position Lithotomy Left Arm Position Resting at side Right Arm Position Resting at side Left Leg Position Secured in Leg Patel Right Leg Position Secured in Leg Patel Feet Uncrossed Yes Pressure Points Yes Checked Positioning Devices Stirrups/Leg Patel, Cysto Positioned By Crissy Martinez RN, Gale Heath FILTRATION PLANT OPERATOR-NURSE SANDING MACHINE BUFFER, ELEONORA BARAHONA MD-URO Position Verified Positioning Yes Verified by Anesthesia Positioning Yes Verified by Surgeon Last Modified By: Crissy Martinez RN 08/14/21 13:58:27 [facility] IntraOp Patient Positioning Audit 08/14/21 14:45:31 Directional Bore Operator: WELLNISA Modifier: WELLNISA <+> 1 Procedure 08/14/21 14:24:33 Directional Bore Operator: WELLNISA Modifier: WELLNISA 1 <-> Procedure Cystoscopy Adult 08/14/21 13:58:31 Directional Bore Operator: WELLNISA Modifier: WELLNISA 1 <*> Procedure Cystoscopy Adult [facility] IntraOp Sign In Entry 1 Patient, Site, Yes Procedure Identified Surgical Consent Yes Confirmed Relevant Surgical Yes Documents Available Surgical Site N/A Marked by person performing procedure Anesthesia Machine Yes Check Completed Medication Checks Yes Completed Allergies No Airway Difficult No Airway/Aspiration Risk Difficult Yes Airway/Aspiration Intervention Equipment Available Blood Loss Risk No Blood Loss No Intervention Equipment Prepared and Ready Blood Identifiers Not applicable Verified Per Policy Hypothermia Risk Yes Warming Measures Yes Taken Last Modified By: Crissy Martinez RN 08/14/21 13:58:42 [facility] Intra Op Sign Out Entry 1 RN Confirmation Surgical Yes Procedure(s) Identified Instrument, Sponge Yes and Sharps Counts Correct/Documented Equipment Problems N/A Documented Specimen Labeled N/A Correctly Urinary Catheter N/A Documented in IView Wound Yes classification reviewed, verified and updated post case in both the General Case Data and Procedure segments Fuentes Patient Yes Recovery Concerns Reviewed with Anesthesia Provider, Surgeon and RN Fuentes Patient Yes Management Concerns Reviewed with Anesthesia Provider, Surgeon and RN Safety Checklist Yes Elements Complete? RN Sign Out Crissy Martinez, MANUELITO Signature RN Sign Out 08/14/21 14:26:00 Signature Date/Time Plan of Care Outcome - [...] of Care Outcome - Xray/Images OUTCOME STATEMENT: N/A Absence of observable signs or symptoms of radiation injury Plan of Care Outcome - Counts OUTCOME STATEMENT: Goal met Absence of signs and symptoms of injury related to extraneous objects Last Modified By: Crissy Martinez RN 08/14/21 14:26:04 [facility] IntraOp Skin Prep Entry 1 Prescribed Yes Pre-Surgical Prep Completed Prep Area PERINEAL Intraop Prep Integumentary WDL Assessment WDL Prep Agents Betadine solution Prep by Crissy Martinez RN Hair Removal Methods No hair removal performed Last Modified By: Crissy Martinez RN 08/14/21 13:55:27 [facility] IntraOp Skin Prep Audit 08/14/21 14:24:33 Directional Bore Operator: MIRI Modifier: WELLNISA 1 <-> Procedure Cystoscopy Adult 08/14/21 13:58:31 Directional Bore Operator: MIRI Modifier: WELLNISA 1 <*> Procedure Cystoscopy Adult [facility] IntraOp Surgical Procedures Entry 1 Procedure Extracorporeal Shockwave Lithotripsy Additional LEFT ESWL WITH STENT Procedure REMOVAL Description Primary Procedure Yes Primary Surgeon ELEONORA BARAHONA MD-URO Start 08/14/21 13:57:00 Stop 08/14/21 14:31:00 Anesthesia Type General Specialty Urology Wound Class 1 - Clean Last Modified By: Crissy Martinez RN 08/14/21 13:58:30 [facility] IntraOp Surgical Procedures Audit 08/14/21 14:44:43 Directional Bore Operator: MIRI Modifier: WELLNISA 1 <*> Procedure Extracorporeal Shockwave Lithotripsy 1 <+> Wound Class 08/14/21 14:44:32 Directional Bore Operator: MIRI Modifier: WELLNISA <+> 1 Stop 08/14/21 14:24:58 Directional Bore Operator: MIRI Modifier: WELLNISA 1 <*> Procedure Extracorporeal Shockwave Lithotripsy 1 <*> Primary Procedure Yes 1 <*> Primary Surgeon ELEONORA BARAHONA MD-URO 1 <*> Specialty 1 <*> Start 08/14/21 13:57:00 1 <*> Anesthesia Type General 1 <*> Additional Procedure Description LEFT ESWL WITH STENT REMOVAL Entry 2 was deleted. Higher numbered entries shifted one position to fill the gap. <-> 2 Procedure Cystoscopy Adult <-> 2 Primary Procedure No <-> 2 Primary Surgeon ELEONORA BARAHONA MD-URO <-> 2 Specialty <-> 2 Start 08/14/21 13:57:00 <-> 2 Anesthesia Type General [facility] IntraOp Time Out Entry 1 Procedure to be Extracorporeal Performed Shockwave Lithotripsy Time Out Time Out Pause Time 08/14/21 13:55:00 All activity Yes suspended (unless life threatening emergency) Team Verbally Correct patient Confirms Information identity, Correct side and site are marked, Consent form is present and accurate, Agreement on the procedure to be done, Correct patient position, Relevant images/results properly labeled/appropriately displayed, Confirm antibiotics have been administered, Confirm the skin prep has dried, Confirm prosthesis/implant/devic e is present, Performed in location of procedure after prepped/draped Antibiotic Yes Prophylaxis Administered Or In Progress Within the Last 60 Minutes Beta Shira N/A Administered Venous Yes Thromboembolism Prophylaxis Required Anticipated Critical Events Surgeon None expected Anesthesia Provider None expected Nursing Assures Sterility of instruments, Equipment concerns or issues Essential Imaging N/A Labeled and Displayed Last Modified By: Crissy Martinez RN 08/14/21 14:24:33 [facility] IntraOp Time Out Audit 08/14/21 14:24:33 Directional Bore Operator: MIRI Modifier: JAILYNASHLEEMariano 1 <*> Procedure to be Performed Extracorporeal Shockwave Lithotripsy, Cystoscopy Adult Case Comments <None> Finalized By: Crissy Martinez, RN Document Signatures Signed By: Crissy Martinez RN 08/14/21 14:45 documented in this encounter Plan of Treatment Not on file documented as of this encounter Visit Diagnoses Not on filedocumented in this encounter Care Teams Template Clerk Relationship Specialty Start Date End Date Provider, Not In System [place] PCP - General 01/05/23 documented as of this encounter
--- OUTSIDE RECORDS SUMMARY | 2024-08-17 08:51 | XMS_ITS | Encounter Summary ---
Author Organization [employer] Address [address] [place] [address] Care Team Providers Care Unix System Administrator Name Role Phone Provider, Not In System Primary Care Provider Un available Encounter Details Date Type Department Care Team (Late st Contact Info) Description 09/10/2021 Transcribed Document [facility] [place] Family Medicine [facility] [address] ProviderAilyn MD [address] [place] [id number] Social History Tobacco Use Types Packs/Day Years [...] Note - Ailyn Cavazos MD - 09/10/2021 8:19 PM CDT ED Discharge Entered On: 09/10/2021 20:20 EDT Performed On: 09/10/2021 20:19 EDT by Shirley Mcgrath RN Discharge Process Patient Disposition : Discharge Personal Belongings With Patient : Yes Patient Education Completed : Yes Teaching Evaluation : Verbalizes understanding IV Discontinued : Yes Nursing Documentation Completed : Yes Shirley Mcgrath RN - 09/10/2021 20:19 EDT ED Discharge Discharge To : Home with ambulatory/outpatient follow-up Mode Of Departure : Ambulatory Accompanied By : Son Discharge Instructions Reviewed With, Opportunity For Questions Given : Patient Prescriptions Given to Patient : Yes Number of Prescriptions Given : 2 Shirley Mcgrath RN - 09/10/2021 20:19 EDT Electronically signed by [facility] Conversion Maintenance Analyst Cerner at 06/17/2022 9:45 AM CDT documented in this encounter Plan of Treatment Not on file documented as of this encounter Visit Diagnoses Not on filedocumented in this encounter Care Teams Unix System Administrator Relationship Specialty Start Date End Date Provider, Not In System [place] PCP - General 01/05/23 documented as of this encounter
--- OUTSIDE RECORDS SUMMARY | 2024-08-17 08:51 | XMS_ITS | Encounter Summary ---
Author Organization [employer] Address [address] [place] [address] Care Team Providers Care Shingle Grader Name Role Phone Provider, Not In System Primary Care Provider Un available Encounter Details Date Type Department Care Team (Late st Contact Info) Description 06/22/2021 Transcribed Document [facility] [place] Family [facility] [place] [address] ProviderAilyn MD [address] [place], [place] [id number] Social History Tobacco Use Types Packs/Day Years [...] Conversion Note - Ailyn ProviderMD - 06/22/2021 12:07 PM CDT UM Authorization Entered On: 06/22/2021 12:07 EDT Performed On: 06/22/2021 12:07 EDT by Lary Balbuena Rn-Utilization Review Primary Insurance Authorization Authorization and Policy Numbers : Insurance 1 Health Plan: SELF PAY Policy Number: Authorization Number: Insurance Primary Name : SELF PAY Authorized Service Begin Date-Primary : 06/21/2021 EDT Historical Authorization Comments-Primary : Comment 1: [facility] REFERRAL PER STAR NOTES (Lary Balbuena, Rn-Utilization Review 06/22/2021 10:58) Lary Balbuena, Rn-Utilization Review - 06/22/2021 12:07 EDT Electronically signed by Rich [facility] Conversion Box Spinner Cerner at 06/17/2022 9:43 AM CDT documented in this encounter Plan of Treatment Not on file documented as of this encounter Visit Diagnoses Not on filedocumented in this encounter Care Teams Shingle Grader Relationship Specialty Start Date End Date Provider, Not In System [place] PCP - General 01/05/23 documented as of this encounter
--- OUTSIDE RECORDS SUMMARY | 2024-08-17 08:51 | XMS_ITS | Encounter Summary ---
Author Organization [employer] Address [address] [place] [address] Care Team Providers Care Placement Coordinator Name Role Phone Provider, Not In System Primary Care Provider Un available Encounter Details Date Type Department Care Team (Late st Contact Info) Description 08/14/2021 Transcribed Document [facility] [place] [facility] [place] [address] ProviderAilyn MD [address] [place], [place] [id number] Social History Tobacco Use Types Packs/Day Years [...] Conversion Note - Ailyn ProviderMD - 08/14/2021 3:28 PM CDT [address] [address] VENECIA NAGY :1965 Visit Time:08/14/2021 What to do next 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 Discharge Follow Up Instructions: Office one week with YURI and cysto stent removal at [facility] on [address] Activity: Discharge Activity: Activity as tolerated Diet: Discharge Diet: Resume usual diet as tolerated Follow-Up Appointments Follow Up with ELEONORA BARAHONA MD-URO When 08/21/2021 01:00 PM EDT Comments Call the office to get instructions on how to get KUB x-ray before appointment. Appointment has been made Where: [facility] [place], [place] [phone] Medications What How Much When Instructions Next Dose acetaminophen-oxyCODONE (Percocet 5/ 325 oral tablet) 1 Tablet(s) Oral One Time Order as needed for Pain (Moderate 4-6) Pickup at [facility]/pharmacy #[id number] ciprofloxacin (Cipro 500 mg oral tablet) 1 Tablet(s) Oral Every 12 [facility] ascorbic acid (Vitamin C 500 mg oral tablet) 1 Tablet(s) Oral Every Day multivitamin (Multiple Vitamins oral tablet) 1 Tablet(s) Oral Every Day Pharmacy Information [facility]/pharmacy #[id number]: [address] [place], [place] [phone] Take your medications faithfully. Do NOT skip [...] activities are safe for you. ??? Take mfia-ddd-fghxdyk and prescription medicines only as told by [...] these instructions at home: Medicines ??? Take djoc-dkp-iernegh and prescription medicines only as told by [...] or treat constipation, such as: ? Take ewfx-uzz-loaoehq or prescription medicines. ? Eat foods that [...] of blood in your urine. ??? Take mrcx-wcg-pmtowxb and prescription medicines only as told by [...] provider. Document Revised: 10/30/2018 Document Reviewed: 10/30/2018 [employer] Patient Education ?? 2020 [employer]. Lithotripsy, Care After This sheet gives you [...] these instructions at home: Medicines ??? Take wabv-lnn-qxnjbvv and prescription medicines only as told by [...] provider. Document Revised: 12/02/2019 Document Reviewed: 12/02/2019 [employer] Patient Education ?? 2020 [employer] Emergency Awareness and Preventative Care STROKE [...] Assistance with quitting is available by contacting 3-005-UNQJNOW. This is a free resource providing counseling, [...] was given the opportunity to ask questions. Patient/Education Coordinator Name: Patient/Education Coordinator Signature: Relationship to Patient: Clinician/Hospital Education Coordinator Signature: Date: documented in this encounter Plan of Treatment Not on file documented as of this encounter Visit Diagnoses Not on filedocumented in this encounter Care Teams Placement Coordinator Relationship Specialty Start Date End Date Provider, Not In System [place] PCP - General 01/05/23 documented as of this encounter
--- OUTSIDE RECORDS SUMMARY | 2024-08-17 08:51 | XMS_ITS | Encounter Summary ---
Author Organization [employer] [facility] Address [address] [place] [address] Care Team Providers Care Aluminum Siding Applicator Name Role Phone Provider, Not In System Primary Care Provider Un available Encounter Details Date Type Department Care Team (Late st Contact Info) Description 06/21/2021 Transcribed Document [facility] [place] Family Medicine [facility] [place] [address] ProviderAilyn MD [address] [place] [address] Social History Tobacco Use Types [...] Conversion Note - Ailyn ProviderMD - 06/21/2021 12:48 PM CDT Patient: VENECIA NAGY Age: 56 years Sex: Female : 1965 Associated Diagnoses: None Author: CALVINRVIPUL APRN Chief Complaint pleasant 56 yo female here with her sister for cysto/ureteroscopy with stent with Dr. Stern. pt has had L CVA pain and nausea for the last 10 days, went to ER in [place] today for evaluation. Review of Systems Constitutional: obese. Eye: Negative. Ear/Nose/Mouth/Throat: Negative. Respiratory: Negative. Cardiovascular: Negative. Gastrointestinal: Nausea, Vomiting. Genitourinary: renal stones. Hematology/Lymphatics: Negative. Endocrine: Negative. Immunologic: Negative. Musculoskeletal: Negative. Integumentary: Negative. Neurologic: Negative. Psychiatric: Negative. All other systems are negative Health Status Allergies: No active allergies have been recorded. , No qualifying data available Current medications: Home Medications (2) Active Vitamin A,D,E, and K oral solution , Oral, Daily Vitamin C , Daily , No qualifying data available Problem list: Active Problems (3) History of obstructive sleep apnea Kidney stone Sleep apnea Histories Past Medical History: No active or resolved past medical history items have been selected or recorded. Family History: No family history items have been selected or recorded. Procedure history: No active procedure history items have been selected or recorded. Social History Social & Psychosocial Habits Alcohol 06/21/2021 Alcohol Use History, Social Habits Yes Days Per Week of Alcohol Use 2 Tobacco 06/21/2021 Smoking Status Never (less than 100 in l Smokeless Tobacco Status Never . Physical Examination VS/Measurements Vitals Signs (last 24 hrs) Last Charted Minimum Maximum Temp 98.3 (JUN 21:00) 98.3 (JUN 21:00) 98.3 (JUN 21:) Mon HR 71 (JUN 21:00) 71 (JUN 21:00) 71 (JUN 21:00) Resp Rate 17 (JUN 21:) 17 (JUN 21:00) 17 (JUN 21:00) SBP 136 (JUN 21 13:00) 136 (JUN 21:00) 136 (JUN 21:00) DBP 62 (JUN 21 13:00) 62 (JUN 21 13:00) 62 (JUN 21:00) SpO2 98 (JUN 21:00) 98 (JUN 21 13:00) 98 (JUN 21 13:00) General: Alert and oriented, No acute distress, obese. Eye: Extraocular movements are intact. HENT: Normocephalic, Normal hearing. Respiratory: Lungs are clear to auscultation, Respirations are non-labored. Cardiovascular: Normal rate, Regular rhythm, No murmur, No gallop, No edema. Genitourinary: Kidney: Left, Costovertebral angle tenderness. Musculoskeletal: Normal range of motion, Normal strength. Integumentary: Warm, Dry, [place]. Neurologic: Alert, Oriented. Psychiatric: Cooperative, Appropriate mood & affect. Review / Management Results review: No qualifying data available . Impression and Plan Diagnosis 1. nomi renal stones 2. nausea and vomitting 3. LIZZY risk. Condition: Stable. pt to proceed with surgery, DC home today Electronically signed by Gayle Villanueva Conversion Neonatal Nurse Practitioner Cerner at 06/17/2022 9:47 AM CDT documented in this encounter Plan of Treatment Not on file documented as of this encounter Visit Diagnoses Not on filedocumented in this encounter Care Teams Aluminum Siding Applicator Relationship Specialty Start Date End Date Provider, Not In System [place] PCP - General 01/05/23 documented as of this encounter
--- OUTSIDE RECORDS SUMMARY | 2024-08-17 08:51 | XMS_ITS | Encounter Summary ---
Author Organization [employer] [facility] Address [address] [place] [address] Care Team Providers Care Linemarker Name Role Phone Provider, Not In System Primary Care Provider Un available Encounter Details Date Type Department Care Team (Late st Contact Info) Description 08/14/2021 Transcribed Document [facility] [place] [address] [place] [address] ProviderAilyn MD [address] [place] [id number] Social History Tobacco Use Types Packs/Day Years [...] Conversion Note - Ailyn ProviderMD - 08/14/2021 12:16 PM CDT PAT Adult Entered On: 08/14/2021 12:18 EDT Performed On: 08/14/2021 12:16 EDT by Alena Flores Rn Height and Weight, Clinical Dosing Height Source : Stated Height Entry Format : [place] Height, Feet : 5 ft(Converted to: 152 cm, 60 Inch) Height, Inches : 6 Inch(Converted to: 0 ft 6 Inch, 15.24 cm) Clinical Height : 167.64 cm Weight Source : Standing scale Weight Entry Format : [place] Clinical Dosing Weight : 93.18 kg Weight, Pounds : 205 lb Body Surface Area (BSA) : 2.02 m2 Body Mass Index : 33.2 kg/m2 (HI) [place] Body Weight : 59 kg Alena Flores Rn - 08/14/2021 12:16 EDT Health Histories Smoking Status : Never (less than 100 in lifetime; none in last 30 days) Alena Flores Rn - 08/14/2021 12:16 EDT Social History (As Of: 08/14/2021 12:18:33 EDT) Tobacco: Never (less than 100 in lifetime) Smoking Status. Never Smokeless Tobacco Status. (Last Updated: 06/21/2021 13:12:41 EDT by Ivonne Heredia RN) Never (less than 100 in lifetime) Smoking Status. (Last Updated: 08/14/2021 12:16:40 EDT by Alena Flores Rn) Alcohol: Alcohol Use History Yes. Days/Week: 2. (Last Updated: 06/21/2021 13:12:48 EDT by Ivonne Heredia RN) Alcohol Use History Yes. Alcohol Use Frequency Socially. (Last Updated: 08/14/2021 12:16:40 EDT by Alena Flores Rn) Substance Abuse: Drug Use Hx: No. Use in Last 12 Months: No. (Last Updated: 08/14/2021 12:16:40 EDT by Alena Flores Rn) Infectious Disease History Does patient have symptoms of COVID-19? : No Tested for COVID19 in the past 14 days : No, Patient stated Does the Patient state known exposure to a COVID-19 positive case in the last 14 days? : No Patient Vaccinated for COVID-19 : Fully vaccinated Alena Flores Rn - 08/14/2021 12:16 EDT Infectious Disease Risk Screening Grid Cough < 2 wks of unknown origin : NO Cough > 2 weeks : NO Blood in Sputum : NO Fever or self-reported Fever : NO Rash of unknown origin : NO Headache : NO Stiff neck : NO Night Sweats : NO Unexplained Weight Loss : NO Diarrhea (3 episode per day) : NO Alena Flores Rn - 08/14/2021 12:16 EDT Physical contact outside [place] in the last 30 days : No Hospitalized in Foreign Country : No Infectious Disease History : None INF Disease TB Screening Calc : 0 INF Disease Recent Travel Calc : 0 Alena Flores Rn - 08/14/2021 12:16 EDT COVID19 PreProcedure Screening Is this an Emergent or Add on Procedure? : No Date PreProcedure COVID-19 test known? : No Alena Flores Rn - 08/14/2021 12:16 EDT Anesthesia/Transfusion History Family History of Anesthesia Reaction : No prior transfusion(s) Blood Transfusion Acceptable to Patient : No Transfusion History : Prior anesthesia without reaction Family History of Anesthesia Reaction : None Alena Flores Rn - 08/14/2021 12:16 EDT Advance Directive Patient has Advance Directive *Q : No, patient refuses Advance Directive information Alena Flores Rn - 6/13/2022 12:16 EDT [place] Suicide Severity Rating Scale (C-SSRS) CSSRS Past Month Wish to be : No CSSRS Past Month Suicidal Thoughts : No CSSRS Lifetime Suicide Behavior : No Suicide Severity Rating Score : 0 Suicide Severity Rating : No Additional Care Required at this time Alena Flores Rn - 08/14/2021 12:16 EDT Psychosocial History Currently in Unsafe Situation : No Alena Flores Rn - 08/14/2021 12:16 EDT General Info Want Family/Rep/Phys Notified of Admit : No Emergency Contact #1 : Gely Lara Emergency Contact #1 Relationship : sister Emergency Contact #2 : Emergency Contact #2 Phone Number : Emergency Contact #2 Relationship : Primary Language : [place] Communication Barrier : None Owner Needed : No Alena Flores Rn - 08/14/2021 12:16 EDT Ladarius Scale Ladarius Sensory Perception : No impairment [place]arius Moisture : Rarely moist [place]arius Activity : Walks frequently [place]arius Mobility : No limitation Ladarius Nutrition : Excellent Ladarius Friction and Shear : No apparent problem Ladarius Score : 23 Alena Flores Rn - 08/14/2021 12:16 EDT Sleep Apnea Risk Assmt BiPAP/CPAP Ordered for Home Use : No Hx of Obstructive Sleep Apnea Diagnosis : Yes Age over 50 Years Old : Yes Gender Male : No Alena Flores Rn - 08/14/2021 12:16 EDT Electronically signed by Gayle Villanueva Conversion Color Checker Roving Or Yarn Cerner at 06/17/2022 9:40 AM CDT documented in this encounter Plan of Treatment Not on file documented as of this encounter Visit Diagnoses Not on filedocumented in this encounter Care Teams Linemarker Relationship Specialty Start Date End Date Provider, Not In System [place] PCP - General 01/05/23 documented as of this encounter
--- OUTSIDE RECORDS SUMMARY | 2024-08-17 08:52 | XMS_ITS | Clinical Summary ---
Author Organization [employer] Address [address] [place] [address] Care Team Providers Care Battery Charger Name Role Phone Provider, Not In System Primary Care Provider Un available Allergies No known active allergies Medications levothyroxine (SYNTHROID, LEVOTHROID) 50 MCG tablet Take 1 tablet (50 mcg total) by mouth every morning. 12/31/2022 Active progesterone (PROMETRIUM) 100 MG capsule Take 1 capsule (100 mg total) by mouth nightly. 12/13/2022 Active topiramate (QUDEXY XR) 25 mg capsule Take 1 capsule (25 mg total) by mouth daily. 12/18/2022 Active phentermine (ADIPEX-P) 37.5 mg tablet Take 1 tablet (37.5 mg total) by mouth daily. 10/30/2022 Active norethindrone (AYGESTIN) 5 mg tablet Take 1 tablet (5 mg total) by mouth daily. 10/22/2022 Active cefUROXime (CEFTIN) 250 MG tablet Take 1 tablet (250 mg total) by mouth 2 (two) times daily. 42 tablet 02/04/2023 Active ciprofloxacin HCl (CIPRO) 500 MG tablet Take 1 tablet (500 mg total) by mouth every 12 (twelve) hours. 14 tablet 02/27/2023 Active Active Problems Problem Noted Date Diagnosed Date Sepsis 01/05/2023 Class 1 obesity in adult 01/05/2023 Hypothyroid 01/05/2023 Kidney stone 01/05/2023 Social History Tobacco Use Types Packs/Day Years Used Date Smoking Tobacco: Never Smokeless Tobacco: Never Tobacco Cessation:Counseling Given: Not Answered PRAPARE - Transportation Answer Date Re corded In the past 12 months, has l ack of transportation kept you from medical appointments or from getting medications? No 01/05/2023 Lack of Transportation (Non-Medical) Not on file 01/05/2023 Housing Stability Vital Sign Answer Mohan e Recorded In the last 12 months, was t here a time when you were not able to pay the mortgage or rent on time? No 01/05/2023 In the last 12 months, how many places have you lived? 1 01/05/2023 In the last 12 months, was t here a time when you did not have a steady place to sleep or slept in a m[facility]p (including now)? Yes 01/05/2023 Interpersonal Safety Answer Date Record ed Family or friends hurt you Not on file 03/22 Family or friends insult you Not on file Family or friends threaten you Not on file 0 03/22/2023 Family or friends scream or curse at you Not on file 03/22/2023 Housing Stability Answer Date Recorded Living situation today Not on file Living situation problems Not on file 2023 Family and Community Support Answer Mohan e Recorded Help with Day to Day Activities Not on file 03/22/2023 Feeling Lonely or Isolated Not on file 03/22 Educational Attainment Answer Date Josh rded Speak language other than Tristanian at home Not on file 03/22/2023 Want help with school or training Not on file 03/22/2023 Depression Answer Date Recorded PHQ-2 Risk Not on file 03/22/2023 Disabilities Answer Date Recorded Difficulty concentrating Not on file 024 Difficulty doing errands alone Not on file 0 03/22/2023 Substance Use Answer Date Recorded Used prescription meds for non-medical reasons N ot on file 03/22/2023 Used illegal drugs past 12 months Not on file 03/22/2023 Comments Unknown Sex and Gender Information Value Date Recorded Sex Assigned at Female 09/27/2021 12:48 PM CDT Legal Sex Female 1:41 PM CDT Gender Identity Female 09/27/2021 12:48 PM CDT Sexual Orientation Not on file Last Filed Vital Signs Vital Sign Reading Time Taken Comments Blood Pressure 111/57 02/27/2023 10:50 AM EST Pulse 78 02/27/2023 10:50 AM EST Temperature 36.4 C (97.6 F) 02/27/2023 10:45 AM EST Respiratory Rate 16 02/27/2023 10:50 AM EST Oxygen Saturation 97% 02/27/2023 10:50 AM EST Inhaled Oxygen Concentration - - Weight 92.2 kg (203 lb 3.2 oz) 02/27/2023 8:41 A M EST Height 167.6 cm (5' 5.98 ) 02/04/2023 2:58 PM ES T Body Mass Index 32.81 02/04/2023 2:58 PM EST Plan of Treatment Health Maintenance Due Date Last Done Comments CT Colonography 1965 Colonoscopy 1965 Colorectal Cancer Screening 1965 FOBT/FIT 1966 Fit-DNA (Cologuard) 1965 Sigmoidoscopy 1965 Depression Screening (12+) 1978 HIV Screening 1981 Hepatitis C Screening 02/02/1984 DTAP/TDAP/TD VACCINES (1 - Tdap) 1985 Pap Smear 1987 Breast Cancer Screening 2006 Lipid Panel 2011 Pneumococcal 50+ years (1 of 1 - PCV) 02/02/2016 Shingles Vaccine (Zoster) (1 of 2) 02/02/2016 COVID-19 VACCINE ( - season) 2023 Tobacco Cessation Counseling and Screening (12+) 02/2702/27/2023 Influenza Vaccine (Season Ended) 2024 Medical Devices Implanted Type Area Practice Performance Manager Device Identifier Shelf Expiration Date Model / Serial / Lot Stent Uret Percflx + [id number] - [id number] Implanted:Qty : 1 on 01/05/2023 by Lele Dougherty MD at [facility] IMPLANTS Left: Ure[employer]UROLOGY/GYNE COLOGY 05/30/2025 [id number] 20 / / [id number] Insurance [facility] [place] Advance Directives For more information, please contact: [phone] Documents on File Type Date Recorded 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
--- OUTSIDE RECORDS SUMMARY | 2024-08-17 08:52 | XMS_ITS | Data Portability ---
Author Organization GISELL - JUAN CARLOS [facility] & SONDRA Fan ADMIN Address [address] [place] [address] Care Team Providers Care Sales And Marketing Assistant Name Role Phone ALEX LOVE Primary Care Provider Assessment Encounter Date Assessment Date Assessment LastModified by Organization Details LastModified Time 07/16/2024 07/16/2024 A total of 15 minutes was spent with the pt today. Recommendations: 1. Focus on following the bariatric plate for meals (1/2 plate protein, 1/4 plate veggies, 1/4 plate fiber) 2. Aim for 0362-1630 kcal/day 3. Continue with 70+ g pro, [...] modifications. Will f/up as scheduled or PRN. [email or web address] Not available 07/16/2024 14:35:51 Plan of Treatment Reminders Order Date Submit Date Provider Last Modified By Organization Details Last Modified Time Details Appointments OV EST 20 2024 01:20P BALDO Tavera Not available Not available Not available Lab CMP, serum or plasma 2024 025 VIKTORIA [facility], [address], [address], [place], [address], 07/23/2024 04:12:07 HbA1c (hemoglob in A1c), blood 2024 025 VIKTORIA [facility], [address], [address], [place], [address], 07/23/2024 04:12:07 folate, serum 2024 025 VIKTORIA [facility], [address], [address], [place], [address], 07/23/2024 04:12:06 prealbumi n, serum 2024 025 VIKTORIA [facility], [address], [address], [place], [address], 07/23/2024 04:12:06 thiamine, QN, blood 2024 025 VIKTORIA [facility], [address], [address], [place], [address], 07/23/2024 04:12:06 methylmal artemio, QN, serum or plasma 2024 025 VIKTORIA [facility], [address], [address], [place], [address], 07/23/2024 04:12:07 CBC w/ auto diff 2024 025 VIKTORIA [facility], [address], [address], [place], [address], 07/23/2024 04:12:07 lipid panel, serum 2024 025 VIKTORIA [facility], [address], [address], [place], [address], 07/23/2024 04:12:08 iron + TIBC + ferritin, serum 2024 025 VIKTORIA [facility], [address], [address], [place], [address], 07/23/2024 04:12:07 vitamin D, 25-hydrox y, total, serum 2024 025 VIKTORIA [facility], [address], [address], [place], [address], 07/23/2024 04:12:07 vitamin E, serum 2024 025 VIKTORIA [facility], [address], [address], [place], [address], 07/23/2024 04:12:07 vitamin A (retinol) , serum 2024 025 VIKTORIA [facility], [address], [address], [place], [address], 07/23/2024 04:12:07 TSH + free T4, serum 2024 025 VIKTORIA [facility], [address], [address], [place], [address], 07/23/2024 04:12:08 folate, serum 2024 025 DECATUR [facility], [address], [address], [place], [address], 04/23/2024 12:37:23 prealbumi n, serum 2024 025 VIKTORIA [facility], [address], [address], [place], [address], 04/23/2024 12:37:27 thiamine, QN, blood 2024 025 VIKTORIA [facility], [address], [address], [place], [address], 04/23/2024 12:37:25 methylmal artemio, QN, serum or plasma 2024 025 VIKTORIA [facility], [address], [address], [place], [address], 04/23/2024 12:37:26 CBC w/ auto diff 2024 025 VIKTORIA [facility], [address], [address], [place], [address], 04/23/2024 12:37:20 CMP, serum or plasma 2024 025 VIKTORIA [facility], [address], [address], [place], [address], 04/23/2024 12:37:21 lipid panel, serum 2024 025 VIKTORIA [facility], [address], [address], [place], [address], 04/23/2024 12:37:22 HbA1c (hemoglob in A1c), blood 2024 025 VIKTORIA [facility], [address], [address], [place], [address], 04/23/2024 12:37:23 iron + TIBC + ferritin, serum 2024 025 VIKTORIA [facility], [address], [address], [place], [address], 04/23/2024 12:37:19 vitamin D, 25-hydrox y, total, serum 2024 025 VIKTORIA [facility], [address], [address], [place], [address], 04/23/2024 12:37:25 vitamin E, serum 2024 025 VIKTORIA [facility], [address], [address], [place], [address], 04/23/2024 12:37:22 vitamin A (retinol) , serum 2024 025 VIKTORIA [facility], [address], [address], [place], [address], 04/23/2024 12:37:24 TSH + free T4, serum 2024 025 VIKTORIA [facility], [address], [address], [place], [address], 04/23/2024 12:37:20 Referral dermatolo gist referral - suspiciou s for rodent ulcer of the nose 2024 025 [email or web address] Centeno MD, [address] [place], [address], 08/11/2024 15:52:33 Procedures None recorded. Surgeries None recorded. Imaging None recorded. Medication Orders None recorded. Patient TargetsNo targets recorded. Patient InstructionsNo instructions recorded. 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 L esion of skin of face suspicious for rodent ulcer of the nose Referring Physician: Alex Love, Family Medicine, Encounter Date: 07/14/2024 Results Created Date Observation Date Name Description Value Unit Range Abnormal Flag Note LastModifiedBy Organization Detail LastModifiedTime 04/16/1904/17/2024 FE+TI BC+FE R iron bind.cap.(TI BC) 369 ug/dL 250-45 0 normal Not Available [facility] ([facility]) [address] [facility] [address], [place], [address], 04/23/2024 12:37:19 04/16/19 25 04/17/2024 FE+TI BC+FE R UIBC 277 ug/dL 131-42 5 normal Not Available [facility] ([facility]) [address] [facility] [address], [place], [address], 04/23/2024 12:37:19 04/16/19 25 04/17/2024 FE+TI BC+FE R iron 92 ug/dL 27-159 normal Not Available [facility] ([facility]) [address] [place], [address], 04/23/2024 12:37:19 04/16/1904/17/2024 FE+TI BC+FE R iron saturation 25 % 15-55 normal Not Available [facility] ([facility]) [address] [place], [address], 04/23/2024 12:37:19 04/16/19 25 04/17/2024 FE+TI BC+FE R ferritin 109 NG/mL 15-150 normal Not Available [facility] ([facility]) [address] [place], [address], 04/23/2024 12:37:19 04/16/19 25 04/17/2024 TSH+F REE T4 TSH 4.010 uIU/m L 0.450- 4.500 normal Not Available [facility] ([facility]) [address] [place], [address], 04/23/2024 12:37:19 04/16/1904/17/2024 TSH+F REE T4 T4,free(dire ct) 0.92 NG/dL 0.82-1 .77 normal Not Available [facility] ([facility]) [address] [place], [address], 04/23/2024 12:37:19 04/16/1904/17/2024 CBC WITH DIFFE RENTI AL/PL ATELE T WBC 7.5 x10e3 /uL 3.4-10 .8 normal Not Available [facility] ([facility]) [address] [place], [address], 04/23/2024 12:37:20 04/16/19 25 04/17/2024 CBC WITH DIFFE RENTI AL/PL ATELE T RBC 5.45 x10e6 /uL 3.77-5 .28 above high normal Not Available [facility] ([facility]) [address] [place], [address], 04/23/2024 12:37:20 04/16/19 25 04/17/2024 CBC WITH DIFFE RENTI AL/PL ATELE T hemoglobin 15.8 g/dL 11.1-1 5.9 normal Not Available [facility] ([facility]) [address] [place], [address], 04/23/2024 12:37:20 04/16/19 25 04/17/2024 CBC WITH DIFFE RENTI AL/PL ATELE T hematocrit 47.9 % 34.0-4 6.6 above high normal Not Available [facility] ([facility]) [address] [place], [address], 04/23/2024 12:37:20 04/16/19 25 04/17/2024 CBC WITH DIFFE RENTI AL/PL ATELE T MCV 88 fL 79-97 normal Not Available [facility] ([facility]) [address] [place], [address], 04/23/2024 12:37:20 04/16/19 25 04/17/2024 CBC WITH DIFFE RENTI AL/PL ATELE T MCH 29.0 pg 26.6-3 3.0 normal Not Available [facility] ([facility]) [address] [place], [address], 04/23/2024 12:37:20 04/16/19 25 04/17/2024 CBC WITH DIFFE RENTI AL/PL ATELE T MCHC 33.0 g/dL 31.5-3 5.7 normal Not Available [facility] ([facility]) [address] [place], [address], 04/23/2024 12:37:20 04/16/19 25 04/17/2024 CBC WITH DIFFE RENTI AL/PL ATELE T RDW 13.0 % 11.7-1 5.4 Not Available [facility] ([facility]) [address] [place], [address], 04/23/2024 12:37:20 04/16/19 25 04/17/2024 CBC WITH DIFFE RENTI AL/PL ATELE T platelets 308 x10e3 /uL 150-45 0 normal Not Available [facility] ([facility]) [address] [facility] [address], [place], [address], 04/23/2024 12:37:20 04/16/19 25 04/17/2024 CBC WITH DIFFE RENTI AL/PL ATELE T neutrophils 59 % not estab. normal Not Available [facility] ([facility]) [address] [facility] [address], [place], [address], 04/23/2024 12:37:20 04/16/19 25 04/17/2024 CBC WITH DIFFE RENTI AL/PL ATELE T lymphs 31 % not estab. normal Not Available [facility] ([facility]) [address] [facility] [address], [place], [address], 04/23/2024 12:37:20 04/16/19 25 04/17/2024 CBC WITH DIFFE RENTI AL/PL ATELE T monocytes 7 % not estab. normal Not Available [facility] ([facility]) [address] [facility], [place], [address], 04/23/2024 12:37:20 04/16/19 25 04/17/2024 CBC WITH DIFFE RENTI AL/PL ATELE T eos 2 % not estab. normal Not Available [facility] ([facility]) [address] [facility] [address], [place], [address], 04/23/2024 12:37:20 04/16/19 25 04/17/2024 CBC WITH DIFFE RENTI AL/PL ATELE T basos 1 % not estab. normal Not Available [facility] ([facility]) [address] [facility], [place], [address], 04/23/2024 12:37:20 04/16/19 25 04/17/2024 CBC WITH DIFFE RENTI AL/PL ATELE T immature cells SAMPLE SEWER Not Available [facility] ([facility]) [address] [place], [address], 04/23/2024 12:37:20 04/16/19 25 04/17/2024 CBC WITH DIFFE RENTI AL/PL ATELE T neutrophils (absolute) 4.4 x10e3 /uL 1.4-7. 0 normal Not Available [facility] ([facility]) [address] [place], [address], 04/23/2024 12:37:20 04/16/19 25 04/17/2024 CBC WITH DIFFE RENTI AL/PL ATELE T lymphs (absolute) 2.4 x10e3 /uL 0.7-3. 1 normal Not Available [facility] ([facility]) [address] [place], [address], 04/23/2024 12:37:20 04/16/19 25 04/17/2024 CBC WITH DIFFE RENTI AL/PL ATELE T monocytes(ab solute) 0.6 x10e3 /uL 0.1-0. 9 normal Not Available [facility] ([facility]) [address] [place], [address], 04/23/2024 12:37:20 04/16/19 25 04/17/2024 CBC WITH DIFFE RENTI AL/PL ATELE T eos (absolute) 0.1 x10e3 /uL 0.0-0. 4 normal Not Available [facility] ([facility]) [address] [place], [address], 04/23/2024 12:37:20 04/16/19 25 04/17/2024 CBC WITH DIFFE RENTI AL/PL ATELE T baso (absolute) 0.1 x10e3 /uL 0.0-0. 2 normal Not Available [facility] ([facility]) [address] [place], [address], 04/23/2024 12:37:20 04/16/19 25 04/17/2024 CBC WITH DIFFE RENTI AL/PL ATELE T immature granulocytes 0 % not estab. Not Available [facility] ([facility]) [address] [facility], [place], [address], 04/23/2024 12:37:20 04/16/19 25 04/17/2024 CBC WITH DIFFE RENTI AL/PL ATELE T immature grans (abs) 0.0 x10e3 /uL 0.0-0. 1 Not Available [facility] ([facility]) [address] [facility], [place], [address], 04/23/2024 12:37:20 04/16/19 25 04/17/2024 CBC WITH DIFFE RENTI AL/PL ATELE T NRBC SAMPLE SEWER Not Available [facility] ([facility]) [address] [facility], [place], [address], 04/23/2024 12:37:20 04/16/19 25 04/17/2024 CBC WITH DIFFE RENTI AL/PL ATELE T hematology comments: SAMPLE SEWER Not Available [facility] ([facility]) [address] [facility], [place], [address], 04/23/2024 12:37:20 04/16/19 25 04/17/2024 COMP. METAB OLIC PANEL (14) glucose 110 mg/dL 70-99 above high normal Not Available [facility] ([facility]) [address] [facility], [place], [address], 04/23/2024 12:37:21 04/16/19 25 04/17/2024 COMP. METAB OLIC PANEL (14) BUN 28 mg/dL 6-24 above high normal Not Available [facility] ([facility]) [address] [place], [address], 04/23/2024 12:37:21 04/16/19 25 04/17/2024 COMP. METAB OLIC PANEL (14) creatinine 0.90 mg/dL 0.57-1 .00 normal Not Available [facility] ([facility]) [address] [place], [address], 04/23/2024 12:37:21 04/16/19 25 04/17/2024 COMP. METAB OLIC PANEL (14) eGFR 74 mL/mi n/1.7 3 >59 normal Not Available [facility] ([facility]) [address] [place], [address], 04/23/2024 12:37:21 04/16/19 25 04/17/2024 COMP. METAB OLIC PANEL (14) BUN/creatini ne ratio 31 9-23 above high normal Not Available [facility] ([facility]) [address] [facility], [place], [address], 04/23/2024 12:37:21 04/16/19 25 04/17/2024 COMP. METAB OLIC PANEL (14) sodium 142 mmol/ L 134-14 4 normal Not Available [facility] ([facility]) [address] [place], [address], 04/23/2024 12:37:21 04/16/19 25 04/17/2024 COMP. METAB OLIC PANEL (14) potassium 4.6 mmol/ L 3.5-5. 2 normal Not Available [facility] ([facility]) [address] [place], [address], 04/23/2024 12:37:21 04/16/19 25 04/17/2024 COMP. METAB OLIC PANEL (14) chloride 104 mmol/ L 96-106 normal Not Available [facility] ([facility]) [address] [place], [address], 04/23/2024 12:37:21 04/16/19 25 04/17/2024 COMP. METAB OLIC PANEL (14) carbon dioxide, total 21 mmol/ L 20-29 normal Not Available [facility] ([facility]) [address] [facility] [place], [address], 04/23/2024 12:37:21 04/16/19 25 04/17/2024 COMP. METAB OLIC PANEL (14) calcium 10.4 mg/dL 8.7-10 .2 above high normal Not Available [facility] ([facility]) [address] [facility] [place], [address], 04/23/2024 12:37:21 04/16/19 25 04/17/2024 COMP. METAB OLIC PANEL (14) protein, total 7.1 g/dL 6.0-8. 5 normal Not Available [facility] ([facility]) [address] [facility] [place], [address], 04/23/2024 12:37:21 04/16/19 25 04/17/2024 COMP. METAB OLIC PANEL (14) albumin 4.6 g/dL 3.8-4. 9 normal Not Available [facility] ([facility]) [address] [facility] [place], [address], 04/23/2024 12:37:21 04/16/19 25 04/17/2024 COMP. METAB OLIC PANEL (14) globulin, total 2.5 g/dL 1.5-4. 5 Not Available [facility] ([facility]) [address] [facility] [place], [address], 04/23/2024 12:37:21 04/16/19 25 04/17/2024 COMP. METAB OLIC PANEL (14) bilirubin, total 0.5 mg/dL 0.0-1. 2 normal Not Available [facility] ([facility]) [address] [facility] [place], [address], 04/23/2024 12:37:21 04/16/19 25 04/17/2024 COMP. METAB OLIC PANEL (14) alkaline phosphatase 115 IU/L 44-121 normal Not Available [facility] ([facility]) [address] [facility] [place], [address], 04/23/2024 12:37:21 04/16/19 25 04/17/2024 COMP. METAB OLIC PANEL (14) AST (SGOT) 44 IU/L 0-40 above high normal Not Available [facility] ([facility]) [address] [place], [address], 04/23/2024 12:37:21 04/16/19 25 04/17/2024 COMP. METAB OLIC PANEL (14) ALT (SGPT) 68 IU/L 0-32 above high normal Not Available [facility] ([facility]) [address] [place], [address], 04/23/2024 12:37:21 04/16/19 25 04/17/2024 LIPID PANEL cholesterol, total 198 mg/dL 100-19 9 normal Not Available [facility] ([facility]) [address] [place], [address], 04/23/2024 12:37:22 04/16/19 25 04/17/2024 LIPID PANEL triglyceride s 150 mg/dL 0-149 above high normal Not Available [facility] ([facility]) [address] [place], [address], 04/23/2024 12:37:22 04/16/19 25 04/17/2024 LIPID PANEL HDL cholesterol 50 mg/dL >39 normal Not Available [facility] ([facility]) [address] [place], [address], 04/23/2024 12:37:22 04/16/19 25 04/17/2024 LIPID PANEL VLDL cholesterol monty 27 mg/dL 5-40 Not Available [facility] ([facility]) [address] [place], [address], 04/23/2024 12:37:22 04/16/19 25 04/17/2024 LIPID PANEL LDL chol calc ([facility]) 121 mg/dL 0-99 above high normal Not Available [facility] ([facility]) [address] [place], [address], 04/23/2024 12:37:22 04/16/19 25 04/17/2024 LIPID PANEL LDL calc comment: SAMPLE SEWER Not Available [facility] ([facility]) [address] [place], [address], 04/23/2024 12:37:22 04/16/19 25 04/21/2024 VITAM IN E vitamin E(alpha tocopherol) 10.6 mg/L 7.0-25 .1 Not Available [facility] ([facility]) [address] [facility], [place], [address], 04/23/2024 12:37:22 04/16/19 25 04/21/2024 VITAM IN E vitamin E(gamma tocopherol) 1.2 mg/L 0.5-5. 5 Refer ence inter vals for alpha and gamma -toco phero l deter mined from [facility]ri tion Exami natio n Surve y, 2004- 2005. Indiv idual s with alpha -toco phero l level s less than 5.0 mg/L are consi dered vitam in E defic ient. Not Available [facility] ([facility]) [address] [facility], [place], [address], 04/23/2024 12:37:22 04/16/19 25 04/17/2024 HEMOG LOBIN A1C hemoglobin A1C 6.2 % 4.8-5. 6 above high normal Predi abete s: 5.7 - 6.4 Diabe silvia: >6.4 Glyce leela contr ol for adult s with diabe silvia: <7.0 Not Available [facility] ([facility]) [address] [place], [address], 04/23/2024 12:37:23 04/16/19 25 04/17/2024 FOLAT E (FOLI C ACID) , SERUM folate (folic acid), serum 10.8 NG/mL >3.0 normal A serum folat e shameka ntrat ion of less than 3.1 ng/mL is consi dered to repre sent clini monty defic iency . Not Available [facility] ([facility]) [address] [facility], [place], [address], 04/23/2024 12:37:23 04/16/19 25 04/21/2024 VITAM IN A, SERUM vitamin A 43.9 ug/dL 20.1-6 2.0 Refer ence inter vals for vitam in A deter mined from [facility] inter nal studi es. Indiv idual s with vitam in A less than 20 ug/dL are consi dered vitam in A defic ient and those with serum shameka ntrat ions less than 10 ug/dL are consi dered sever ruth ann defic ient. This test was devel oped and its perfo rmanc e margie cteri stics deter mined by [employer] [facility]. It has not been clear ed or appro kat by the Food and Drug Admin istra tion. Not Available [facility] ([facility]) [address] [facility] [address], [place], [address], 04/23/2024 12:37:24 04/16/19 25 04/17/2024 VITAM IN D, 25-HY DROXY vitamin D, 25-hydroxy 41.9 NG/mL 30.0-1 00.0 Vitam in D defic iency has been defin ed by the Insti tute of Medic ine and an Endoc rine Socie ty pract ice guide line as a level of serum 25-OH vitam in D less than 20 ng/mL (1,2) . The Endoc rine Socie ty went on to furth er defin e vitam in D insuf ficie ncy as a level betwe en 21 and 29 ng/mL (2). 1. IOM (Inst itute of Medic ine). 2009. Dieta ry refer ence intak es for calci um and D. Bernardo thomas [place]: The [facility] . 2. Magdalena crawford [place], Benja contreras [place], Malia off-F errar i DUTTON, et al. Evalu ation , treat ment, and preve ntion of vitam in D defic iency : an Endoc rine Socie ty clini monty pract ice guide line. JCEM. 2010; 96(7) :1911 -30. Not Available [facility] ([facility]) [address] [facility], [place], [address], 04/23/2024 12:37:25 04/16/19 25 04/23/2024 VITAM IN B1 (THIA MINE) , BLOOD vit. B1, whole blood 101.2 nmol/ L 66.5-2 00.0 Not Available [facility] ([facility]) [address] [place], [address], 04/23/2024 12:37:25 04/16/19 25 04/21/2024 METHY LMALO OMAR ACID, SERUM methylmaloni c acid, serum 172 nmol/ L 0-378 Not Available [facility] ([facility]) [address] [place], [address], 04/23/2024 12:37:26 04/16/19 25 04/17/2024 PREAL BUMIN prealbumin 23 mg/dL 10-36 Not Available [facility] ([facility]) [address] [place], [address], 04/23/2024 12:37:26 Result Notes None recorded. Problems Name Problem SNOMED Code Status Onset Date Resolution Date Notes Provider Name and Address Organization Details Recorded Time Intentional weight loss 261369019 Active [address], [place], [address] , [facility] [place] 13:29:21 High hemoglobin A1c level 131830737 Active [address], [place], [address] , [facility] & [place] 5 11:14:15 Hypothyroidis m 24235291 Active 2021 Not Available [facility] 3 12:26:10 Mixed anxiety and depressive disorder 039141659 Active 2021 Not Available [facility] 3 12:26:10 Insomnia 270817946 Active 2021 Not Available [facility] 3 12:26:10 Onychomycosis 377404170 Active 2022 Not Available [facility] 3 12:26:10 Obesity 031363227 Active 2022 Not Available [facility] 3 12:26:10 Hormonal activity 945669681 Active 2022 Not Available [facility] 3 12:26:10 Essential hypertension 75803468 Active [address], [address] , [facility] [place] 4 12:26:08 Hyperlipidemi a 10128187 Active [address] [place], [address] , [facility] - [facility] & [place] 4 12:26:12 Disorder of function of stomach 559887903 Active [address] [place], [address] , [facility] - [facility] & [place] 4 12:27:15 Problem Notes None recorded. Procedures Surgical History Date Name Laterality Status Provider Name and Address Organization Details Recorded Time 01/06/20 24 laparoscopic sleeve gastrectomy completed Janay Cervantes [facility] & [place] 01/14/2024 07:58:45 07/19/19 23 Most Recent Mammogram completed Cara Mccarty [facility] & [place] 07/18/2022 08:28:48 03/04/18 88 ENT Surgery completed BALDO [address] , [place], [address], [facility] & [place] 09/03/2023 14:02:25 lithotripsy completed Alicia Garcia [facility] & [place] 07/19/2022 10:24:30 section completed Nenita Parish [facility] & [place] 09/02/2023 16:50:49 extraction of wisdom tooth completed Nenita Parish [facility] & [place] 09/02/2023 16:51:04 Tubal Ligation completed Nenita Parish [facility] & [place] 09/02/2023 16:51:26 tonsillectomy completed Chio Fajardo [facility] & [place] 11/11/2023 09:02:33 augmentation mammoplasty completed Chio Fajardo [facility] & [place] 11/11/2023 09:02:44 thumb surgery completed Janay Cervantes [facility] & [place] 07/16/2024 14:06:08 Imaging Results None recorded. Procedure Notes None recorded. Medical Equipment None Reported. Allergies Allergen ID Allergen Name Allergen Category Reaction Reaction Severity Criticality Documentation Date Start Date Code Code System Note Provider Name and Address Organization Details Recorded Time 753743 No known allergy (situatio n) Not available Not available Not available Not available 07/06/2024 10030 6003 SNOMED China Colon null, [facility] & [place] 13:05:38 No known drug allergies Medications Name [...] Date Recorded Body height Heart rate Body mass index (BMI) Body weight Systolic blood pressure Diastolic blood pressure Provider Name and Address Organization Details Last Updated DateTime 5 167.64 cm 87 /min 32.1 kg/m2 40675.8 8 g 153 mm[Hg] 96 mm[Hg] Solitario wayne [place] - [facility]NT [facility] & [place] 5 14:41:15 Date Recorded Body height Body mass index (BMI) Body weight Body temperature Oxygen saturation Oxygen saturation in Arterial blood by Pulse oximetry Heart rate Respiratory rate Systolic blood pressure Diastolic blood pressure Provider Name and Address Organization Details Last Updated DateTime 5 167.64 cm 32.4 kg/m2 75100.0 7 g 97.3 [degF] 97 % 97 % 64 /min 16 /min 142 mm[Hg] 84 mm[Hg] Cara Eiderma GISE[place] - LPNT [facility] & [place] 5 14:34:54 Date Recorded Body height Body mass index (BMI) Body weight Body temperature Oxygen saturation Oxygen saturation in Arterial blood by Pulse oximetry Heart rate Respiratory rate Systolic blood pressure Diastolic blood pressure Provider Name and Address Organization Details Last Updated DateTime 5 167.64 cm 29.6 kg/m2 37575.5 6 g 98.2 [degF] 99 % 99 % 92 /min 16 /min 111 mm[Hg] 73 mm[Hg] Cara JAMESON - LPNT [facility] & [place] 5 10:37:35 Date Recorded Body height Heart rate Body temperature Body mass index (BMI) Body weight Systolic blood pressure Diastolic blood pressure Provider Name and Address Organization Details Last Updated DateTime 5 167.64 cm 78 /min 96.9 [degF] 29.2 kg/m2 18600.1 4 g 127 mm[Hg] 86 mm[Hg] Janay JAMESON - LPNT [facility] & [place] 5 14:06:19 Social History Question Answer Notes LastModified by Organizat ion Details LastModified Time Tobacco Smoking Status Never Smoker Not Available [employer] 07/27/2022 12:26:11 Do You Have An Advance [...] anxious, or unable to sleep at night)? [id number] CHART_MERGE Information not available 07/27/2022 Do you have difficulty concentrating, remembering or making decisions? No Information no t available 07/14/2024 Family History Relationship Description Onset Age of this Age Resolved Age Notes LastModified by Organization Details LastModified Time Father Heart disease [email or web address] Not available 2023 09:38:51 Father Diabetes mellitus [email or web address] Not available 2024 10:27:37 Father Kidney stone [email or web address] Not avai lable 07/14/2024 10:27:37 Mother Heart [...] SNOMED-CT Code Diagnosis ICD10 Code Diagnosis Note [id number] Alxe Love MD [address] [address] 01/12/2022 11:37:56 01/12/2022 12:13:08 Depressive disorder 81738947 F32.A Will increase her Cymbalta to 40 mg Insomnia 125805850 G47.0 0 will increase her trazodone to 100 mg a night. [id number] Alex Love MD [address] [address] 02/09/2022 10:49:02 02/09/2022 11:31:47 Mixed anxiety and depressive disorder 444994327 F41.8 we have Discussed options and strategies . we will start Patient on Vraylar 1.5 mg. patient has been given enough samples to last her a month. She is to follow-up in a month at that time she will arm decide whether a helps and we can fill a prescripti on [id number] Alex Love MD [address] [address] 03/21/2022 10:37:32 03/21/2022 11:01:19 Dysuria 77180417 R30.0 urinalysis is clear. 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 Patient has being given enough samples for 28 days. She is to follow-up in a month [id number] Alex Love MD [facility] [address] [place] [address] 04/19/2022 10:15:27 04/19/2022 10:29:16 Mixed anxiety and depressive disorder 517309452 F41.8 will send in a prescripti on for the Vraylar. Insomnia 951121078 G47.0 0 Trazodone appears to be working at this time. Onychomycosis 759377510 B35.1 [id number] Alex Love MD [address] [place] [address] 07/18/2022 08:15:17 07/18/2022 08:41:34 Hypothyroidism 53502989 E03.9 we will obtain labs today. Patient complains of fatigue and weight gain. Insomnia 295649601 G47.0 0 Trazodone appears to be working at this time. 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 To discuss hormonal issues. She is also due for a pelvic exam. Obesity 223857808 E66.9 we have spent 25 minutes discussing strategies for weight loss. Patient is going to work on diet and lifestyle modificati ons. At this time we are going to start her on wegovy to assist in her weight loss journey.We have taught patient correct mode of delivery medication . Hypothyroidism 71447656 E03.9 Patient continues to complain of fatigue. Her TSH was normal. Will work on diet and lifestyle modificati ons. [id number] Alex Love MD [address] [place] [address] 08/27/2022 13:59:39 08/27/2022 14:26:49 Obesity 170100062 E66.9 since insurance refused to pay for were go the patient's is interested in trying phentermin e. We have discussed options which include phentermin e / topiramate . Patient has been instructed to follow-up in a month. Screening for malignant neoplasm of colon 288123767 Z12.11 [id number] Alex Love MD [address] [place] [address] 11/29/2022 09:49:33 11/29/2022 10:14:22 Easy bruising 595426820 R58 WILL OBTAIN LAB WORK. [id number] Alex Love MD [address] [place] [address] 08/20/2023 11:11:43 08/20/2023 11:51:29 Skin lesion 29461926 L98.9 well will refer patient to Dermatolog y Hypothyroidism 98436014 E03.9 will check tsh today Insomnia 493363643 G47.0 0 Trazodone appears to be working at this time. Mixed anxi ety and depressive disorder 957709083 F41.8 I have advised patient to follow-up with her psychiatri st regarding treatment of anxiety and depression . The appears that she is currently on Pristiq. Obesity 020073821 E66.9 patient is requesting a referral to be evaluated for bariatric surgery [id number] BALDO Martinez [facility] [address] [facility] [address] [place] [address] 09/03/2023 11:25:47 09/03/2023 14:26:58 Obesity 986722349 E66.9 The patient will be scheduled for the following. Initial intake lab work, cardiac clearance, and EGD. All risks complicati ons and alternativ es of the upper endoscopy were discussed with the patient and agreed upon. These include but are not limited to, over sedation, bleeding, perforatio n. Patient will be educated by the surgical weight loss team regarding if any medical managed weight loss will be required and they will follow this according to their recommenda tions. patient will follow-up in office after all testing has been completed Essential hypertension 57878712 I10 Elevated blood pressure reading in office today. Patient advised to continue to treat with PCP Hyperlipidemia 49373744 E78.5 Pre-surger y evaluation 803043501 Z01.818 Disorder o f function of stomach 856810832 K31.[id number] [facility] Bariatric s and Adv Surg [address] [facility] [address] [place] [address] 09/03/2023 14:14:06 09/03/2023 16:22:39 Obesity 169345777 E66.9 36.5 Diet education 41736354 Z71.3 Excessive intake of energy 248615036 E67.8 [id number] Nolan Dumont MD [address] [place] [address] 10/18/2023 09:32:01 10/18/2023 09:59:58 Preoperative cardiovascular examination 883765564 Z01.810 Preoperati ve cardiovasc ular evaluation for weight loss surgery. Patient can do more than 6 METs with no limitation . Asymptomat ic physically active. No indication for further cardiac workup at this time she can proceed as moderate risk patient for moderate risk procedure from the cardiovasc ular standpoint . Essential hypertension 39216303 I10 Controlled continue medication s. Dyslipidemia 973673502 E 78.5 Uncontroll ed on pravastati n. LDL more than 190. We will switch to Lipitor 40 and follow up repeat lipid profile. Prediabetes 514638940 R7 3.03 Hemoglobin A1c 6.5. Recommend diet and exercise and starting metformin for the patient. Ex-smoker 5860593 Z87.89 1 quit smoking 5 years ago. Obesity 429370678 E66.9 BMI 35.8. Sleep apnea 02904620 G47 .30 on CPAP. [id number] Alex Love MD [facility] [address] [place] [address] 11/13/2023 10:11:54 11/13/2023 10:42:24 Obesity 729196158 E66.9 We have discussed extensivel y dietary modificati ons, behavioral modificati ons and a 1500 calorie diet. Patient expresses understand ing. Weigh - in forms have been filled out Essential hypertension 63313668 I10 elevated blood pressures noted. Patient states she forgot to take her medication this morning. We have had extensive discussion s regarding the importance of adhering to her medication regimen. Patient expresses understand ing.30 minutes have been spent on this visit discussing the above. Mixed anxi ety and depressive disorder 907041974 F41.8 Patient is under the care of a psychiatri . [id number] ELVIRA SHERMAN MD [facility] Adv [facility] [address] [facility] [address] [place] [address] 01/01/2024 07:42:52 01/01/2024 11:41:47 Morbid obesity 646822366 E66.01 Pre-surger y evaluation 101916569 Z01.818 Postoperative pain 76682 9007 G89.18 Hypothyroidism 67517073 E03.9 Mixed anxi ety and depressive disorder 305230679 F41.8 Essential hypertension 84750478 I10 Hyperlipidemia 15154317 E78.5 [id number] BALDO Martinez [facility] Bariatric s and Adv Surg [address] [facility] [address] [place] [address] 01/14/2024 07:55:43 01/14/2024 10:11:46 History of gastrectomy 023328451 Z90.3 Encouraged patient to continue focus on intake of adequate protein and hydration. Advised minimum 70 g of protein and 800 calories. Patient is to continue incentive spirometer for another 5-7 days Encouraged ambulation Patient is to start bariatric approved vitamin Follow up [id number] [facility] [address] [facility] [address] [place] [address] 02/06/2024 14:55:46 02/06/2024 15:29:16 Dietary management surveillance 972360161 Z71.3 [id number] BALDO Martinez [facility] [address] [facility] [address] [place] [address] 02/06/2024 14:33:07 02/06/2024 15:09:17 Disorder of function of stomach 812168024 K31.89 Patient reports improvemen t of reflux disease status post sleeve gastrectom y hiatal hernia repair. She has not been taking PPI. We will have patient start PPI for postoperat edwin healing. Advised patient take this for least the next 4-6 weeks. Essential hypertension 42815718 I10 Elevated blood pressure reading in office today. Patient advised to continue to treat with PCP History of gastrectomy 865041365 Z90.3 We discussed diet and the importance of adequate protein. Encouraged patient to continue focus on adequate protein/ca lories/hyd ration. Patient is to see dietitian today for typical 1 month postoperat edwin dietary support.Co ntinue PPI and vitamins.E ncouraged routine exercise. Advised exercising such that maintain target HR x 20 min 3dy/wkFoll ow-up 2 months Patient is status post bariatric surgery and at increased risk for vitamin deficienci es and malnutriti on. Bariatric vitamin panel ordered today. Patient will be contacted to correct any vitamin deficienci es. At [facility] risk of nutritional deficit 332874493 Z91.89 [id number] Alex Love MD [facility] [address] [place] [address] 04/21/2024 14:15:53 04/21/2024 14:45:08 Pre-surgery evaluation 645157692 Z01.818 patient is cleared for surgery. [id number] BALDO Martinez [facility] [address] [facility] [address] [place] [address] 04/16/2024 14:34:12 04/16/2024 15:07:09 Disorder of function of stomach 598379583 K31.89 Patient reports improvemen t of reflux disease status post sleeve gastrectom y hiatal hernia repair. Patient is to continue daily PPI. She report any worsening prandial reflux symptoms. Follow up 3 months Essential hypertension 89507945 I10 Elevated blood pressure reading in office today. Patient advised to continue to treat with PCP Hyperlipidemia 29426358 E78.5 Intentiona l weight loss 095218520 R63.8 Patient has done very well with weight loss status post sleeve gastrectom y. Encouraged patient to continue focus on small frequent meals and 80-90 g of protein. It advised patient may need to increase calories to at least a 1000 daily. Encouraged hydration and exercise follow-up3 3 months months History of gastrectomy 166334358 Z90.3 Advised qid intake 50% protein 1000 calories/d y less than 100 carbs/dyLo ng [...] to correct any vitamin deficienci es. At [facility] risk of nutritional deficit 024119730 Z91.89 [id number] Alex Love MD [facility] [address] [place] [address] 07/14/2024 10:27:34 07/14/2024 11:23:23 Lesion of skin of face 8038930115 06 L98.9 well will refer patient to Dermatolog y [id number] BALDO Martinez [facility] [address] [facility] [address] [place] [address] 07/16/2024 13:59:09 07/16/2024 14:18:55 Disorder of function of stomach 605319379 K31.89 Patient reports improvemen t of reflux disease status post sleeve gastrectom y hiatal hernia repair. Discussed weaning off of PPI. She report any worsening prandial reflux symptoms.F ollow up 3 months Essential hypertension 69758923 I10 Elevated blood pressure reading in office today. Patient advised to continue to treat with PCP High hemog lobin A1c level 416194734 R73.09 Patient is not fasting for labs today. She will take lab order to close lab fasting within the next few weeks Intentiona l weight loss 646320882 R63.8 E66.3 Z68.29 Patient has done very [...] dietary supportfol low-up 3months History of gastrectomy 424603790 Z90.3 Advised qid intake 50% protein 2456-1075 calories/d y less than 100 carbs/dyLo ng [...] to correct any vitamin deficienci es. At [facility] ed risk of nutritional deficit 643602339 Z91.89 Hyperlipidemia 61024286 E78.[id number] [facility] Bariatric s and Adv Surg [address] [facility] [address] [place] [address] 07/16/2024 14:19:03 07/16/2024 14:36:23 Dietary management surveillance 030374959 Z71.3 Health Concerns Section Related Observation LastModified by Organization Detai ls LastModified Time None Recorded Concern Status LastModified by Organization Details LastModified Time None Recorded Advance Directives Directive N: Payers Insurance Date Sequence Insurance Name Policy Number Policy Patel Covered Member ID Patel Member ID Guarantor Name 10/16/2022 1 UNSPECIFIED REMIT PAYOR Venecia Caruso 07/12/2024 1 [facility] - [place] Venecia Caruso [id number] Venecia Caruso Notes Date Note Type Note Provider Name and Address Organization Details Recorded Time 04/16/2024 text/html Patient presents for 3mth Post-Op Check s/p LSG HHR 01/06/24Patient presents [...] after Weight loss Surgery. BALDO Martinez [address] [facility], [place], [address], [facility] & [place] 04/16/2024 14:58:58 04/21/2024 text/html patient presents today for preop clearance. She is scheduled to have surgery to her thumbs. Alex Love MD [address] [place], [address], [facility] & [place] 04/21/2024 14:50:27 07/14/2024 text/html patient presents today with skin lesion to the left side of her nose. Patient states that he has become raised and crusty. Alex Love MD [address] [place] [address], [address], [place] - [facility] - [place] & [place] 07/14/2024 11:00:35 07/16/2024 text/html Patient presents for 6mth Post-Op [...] after Weight loss Surgery. BALDO Martinez [address] [facility], [place], [address], [facility] & [place] 07/16/2024 14:25:30 07/16/2024 text/html RDN met w/ [...] Foods Not Tolerated: denies Additional notes/concerns: GUZMAN LYMAN RD [address] [facility], [place], [address], [facility] & [place] 07/16/2024 14:36:09 OBGyn Episode No OBEpisode recorded.
--- OUTSIDE RECORDS SUMMARY | 2024-08-17 08:52 | XMS_ITS | Encounter Summary ---
Author Organization [employer] Address [address] [place] [address] Care Team Providers Care Buncher Hand Name Role Phone Provider, Not In System Primary Care Provider Un available Encounter Details Date Type Department Care Team (Late st Contact Info) Description 06/23/2021 Transcribed Document [facility] Family Medicine [facility] [place] [address] ProviderAilyn MD [address] [place] [address] Social History Tobacco Use Types [...] Cavazos MD - 06/23/2021 12:59 PM CDT Patient Education Materials Follows: Dietary Guidelines to Help Prevent Kidney Stones [...] calcium at each meal. Foods that contain 200?500 mg of calcium a serving include: ? 8 oz (237 mL) of milk, egsslvb-jksrdnpimwvr-ukecj milk, and calcium-fortifiedfruit juice. Calcium-fortified means that [...] of sardines or mackerel. Most people need 1,000?1,500 mg of calcium a day. Talk to [...] Spinach (cooked), rhubarb, beets, sweet potatoes, and Burkinan chard. ? Peanuts. ? Potato chips, occitan fries, and baked potatoes with skin on. ? Nuts and nut products. ? Chocolate. ??? If you regularly take a diuretic medicine, make sure to eat at least 1 or 2 servings of fruits or vegetables that are high in potassium each day. These include: ? Avocado. ? Banana. ? [place], prune, carrot, or tomato juice. ? Baked potato. ? Cabbage. ? Beans and split peas. Lifestyle ??? Drink enough fluid to keep your urine pale yellow. This is the most important thing you can do. Spread your fluid intake throughout the day. ??? If you drink alcohol: ? Limit how much you use to: ? 0?1 drink a day for women who are not . ? 0?2 drinks a day for men. ? Be aware of how much alcohol is in your drink. In the [place] one drink equals one 12 oz bottle of beer (355 mL), one 5 oz glass of wine (148 mL), or one 1? oz glass of hard liquor (44 mL). [...] fish oil, or vitamin B6. ??? Take ppsw-usn-ktepios and prescription medicines only as told by [...] Casseroles. Pizza. Lasagna. Frozen meals. Potato chips. Egyptian fries. The items listed above may not [...] provider. Document Revised: 02/11/2020 Document Reviewed: 02/11/2020 [employer] Patient Education ? 2020 [employer]. Obstetrics and Gynecology Urinary Tract Infection, Adult A urinary tract [...] these instructions at home: Medicines ??? Take ixks-rta-eiunwou and prescription medicines only as told by [...] ??? You do not get better after 1?2 days. ??? Your symptoms go away and [...] provider. Document Revised: 09/30/2020 Document Reviewed: 09/30/2020 [employer] Patient Education ? 2020 [employer] Urology Ureteral Stent Implantation, Care After This sheet [...] these instructions at home: Medicines ??? Take lqfu-wbc-avabevg and prescription medicines only as told by [...] Get up to take short walks every 1?2 hours. This is important to improve blood [...] blood in your urine increases. ??? Take waxd-vxs-rtdxcfs and prescription medicines only as told by your health care provider. ??? Drink enough fluid to keep your urine pale yellow. This information is not intended to replace advice given to you by your health care provider. Make sure you discuss any questions you have with your health care provider. Document Revised: 11/25/2018 Document Reviewed: 11/26/2018 [employer] Patient Education ? 2020 [employer]. Kidney Stones Kidney stones are rock-like masses [...] these instructions at home: Medicines ??? Take hoah-nou-ejfclak and prescription medicines only as told by your doctor. ??? Ask your doctor if the medicine prescribed to you requires you to avoid driving or using heavy machinery. Eating and drinking ??? Drink enough fluid to keep your pee pale yellow. You may be told to drink at least 8?10 glasses of water each day. This will [...] hours after a stone comes out. ? 8?12 weeks after a stone comes out, and every 6?12 months after that. ??? Strain your pee [...] Foundation (NKF): www.kidney.org ??? Urology Care Foundation (UCF): www.urologyhealth.org Contact a doctor if: ??? You [...] provider. Document Revised: 07/07/2019 Document Reviewed: 07/07/2019 [employer] Patient Education ? 2020 [employer]. Electronically signed by Gayle Villanueva Conversion Principle Industrial Hygienist Cerner at 06/17/2022 9:52 AM CDT documented in this encounter Plan of Treatment Not on file documented as of this encounter Visit Diagnoses Not on filedocumented in this encounter Care Teams Buncher Hand Relationship Specialty Start Date End Date Provider, Not In System [place] PCP - General 01/05/23 documented as of this encounter
--- OUTSIDE RECORDS SUMMARY | 2024-08-17 08:52 | XMS_ITS | Encounter Summary ---
Author Organization [employer] Address [address] [place] [address] Care Team Providers Care Surface Grinder Tender Name Role Phone Provider, Not In System Primary Care Provider Un available Encounter Details Date Type Department Care Team (Late st Contact Info) Description 08/14/2021 Transcribed Document [facility] [place] Medicine [facility] [place] [address] ProviderAilyn MD [address] [place], [place] [id number] Social History Tobacco Use Types Packs/Day Years [...] 08/14/2021 1:57 PM CDT [facility] Main OR PACU Summary Primary Physician: ELEONORA BARAHONA MD-URO Finalized Date/Time: 08/14/21 15:13:50 Pt. Name: VENECIA NAGY EDWARD /Sex: 1965 Female Med Rec #: [id number] Physician: ELEONORA BARAHONA MD-URO Financial #: [id number] Pt. Type: O Room/Bed: [facility]/4 Admit/Disch: 08/14/21 11:32:00 - Institution: [facility] [place] PACU Case Times Entry 1 In PACU I 08/14/21 14:38:00 Ready for PACU 08/14/21 15:08:00 Discharge Discharge from PACU 08/14/21 15:08:00 I Last Modified By: Tiarra Mayberry Rn Patient Care Bedside 08/14/21 15:13:37 [facility] Main OR PACU Case Times Audit 08/14/21 15:13:37 Mold Bunch Trimmer: LEE Modifier: TIARRATIPANIL <+> 1 Ready for PACU Discharge <+> 1 Discharge from PACU I Finalized By: Tiarra Mayberry Rn Patient Care Bedside Document Signatures Signed By: Tiarra Mayberry Rn Patient Care Bedside 08/14/21 15:13 Electronically signed by [facility] Conversion Alcohol Rubber Cerner at 06/17/2022 9:38 AM CDT documented in this encounter Plan of Treatment Not on file documented as of this encounter Visit Diagnoses Not on filedocumented in this encounter Care Teams Surface Grinder Tender Relationship Specialty Start Date End Date Provider, Not In System [place] PCP - General 01/05/23 documented as of this encounter
--- OUTSIDE RECORDS SUMMARY | 2024-08-17 08:52 | XMS_ITS | Encounter Summary ---
Author Organization [employer] Address [address] [place] [address] Care Team Providers Care Panel Lay Up Worker Name Role Phone Provider, Not In System Primary Care Provider Un available Encounter Details Date Type Department Care Team (Late st Contact Info) Description 06/23/2021 Transcribed Document [facility] [place] [facility] [place] [address] ProviderAilyn MD [address] [place], [place] [id number] Social History Tobacco Use Types Packs/Day Years [...] Note - Ailyn Cavazos MD - 06/23/2021 12:54 PM CDT Patient Resource Center Entered On: 06/23/2021 12:55 EDT Performed On: 06/23/2021 12:54 EDT by Rosalba Navarro, FINGERPRINT CLASSIFIER Patient Resource Center Provider Status : No Assigned Primary Care Established Provider Name : MARS pcp Patient Phone Number : [phone] Patient Insurance Type : Self pay Source of Referral : Case management Location of Patient : Case management referral Primary Care Scheduled : Patient refused Specialty Care Scheduled : Yes Specialty Type Scheduled2 : Urology Urology Provider Name : Heath Stern Urology Appointment Date/Antonella : 07/06/2021 13:30 EDT Qualify for Diabetes and/or Nutrition Referral : No Wound Care Appointment Made : No Why Patient Visited ED- Specialty spent : Other How Patient Arrived at ED : Other Primary Language : Montserratian Patient Resource Center Comment : pt wants to do PCP on her own since she just moved her, URO appt made Follow Up Needed : No Rosalba Navarro, FINGERPRINT CLASSIFIER - 06/23/2021 12:54 EDT Electronically signed by Rich [facility] Conversion Spinner Hand Cerner at 06/17/2022 9:55 AM CDT documented in this encounter Plan of Treatment Not on file documented as of this encounter Visit Diagnoses Not on filedocumented in this encounter Care Teams Panel Lay Up Worker Relationship Specialty Start Date End Date Provider, Not In System [place] PCP - General 01/05/23 documented as of this encounter
--- OUTSIDE RECORDS SUMMARY | 2024-08-17 08:52 | XMS_ITS | Referral Summary ---
Author Organization [employer] Address [address] [place] [address] Care Team Providers Care Hogshead Filler Name Role Phone Provider, Not In System [...] place to sleep or slept in a longterm (including now)? Yes 01/05/2023 Interpersonal Safety Answer [...] Date Josh rded Speak language other than Nigerian at home Not on file 03/22/2023 Want [...] 02/04/2023 2:58 PM EST Plan of Treatment Not on file Medical Devices Implanted Type Area Road Mender Device Identifier Shelf Expiration Date Model / Serial / Lot Stent Uret Percflx + [id number] - [id number] Implanted:Qty : 1 on 01/05/2023 by Lele Dougherty MD at [facility] IMPLANTS Left: Ureter TRUCKEE SCI:UROLOGY/GYNE COLOGY 05/30/2025 [id number] 20 / / [id number] Insurance GISELL SANTIZO [id number] [facility] Advance Directives For more information, please contact: [phone] Documents on File Type Date Recorded Patient Area Development Consultant Expl anation Advance Directives and Living Will 01/05/2023 * Full Code (Latest Code Status on File) Date Activated Date Inactivated Comments 01/05/2023 4:00 PM 01/07/2023 12:11 PM Care Teams Hogshead Filler Relationship Specialty Start Date End Date Provider, Not In System [place] PCP - General 01/05/23
--- OUTSIDE RECORDS SUMMARY | 2024-08-17 08:52 | XMS_ITS | Encounter Summary ---
Author Organization [employer] Address [address] [place] [address] Care Team Providers Care Forensic Psychologist Name Role Phone Provider, Not In System Primary Care Provider Un available Encounter Details Date Type Department Care Team (Late st Contact Info) Description 06/23/2021 Transcribed Document [facility] [place] [facility] [place] [address] ProviderAilyn MD [address] [place] [address] Social History Tobacco Use Types Packs/Day Years Used Date Smoking Tobacco: Never Assessed Comments Unknown Sex and Gender Information Value Date Recorded Sex Assigned at Female 09/27/2021 12:48 PM CDT Legal Sex Female 1:41 PM CDT Gender Identity Female 09/27/2021 12:48 PM CDT Sexual Orientation Not on file documented as of this encounter Miscellaneous Notes * Cerner Conversion Note - Historical ProviderMD - 06/23/2021 11:52 AM CDT Patient: VENECIA NAGY Age: 56 Years Sex: Female : 1965 progress note Further improvement, less prominent fever and she feels well I will see her back in office in 2 weeks Electronically signed by Rich [facility] Conversion Marketing Finance Specialist Andrew at 06/17/2022 9:57 AM CDT documented in this encounter Plan of Treatment Not on file documented as of this encounter Visit Diagnoses Not on filedocumented in this encounter Care Teams Forensic Psychologist Relationship Specialty Start Date End Date Provider, Not In System [place] PCP - General 01/05/23 documented as of this encounter
--- OUTSIDE RECORDS SUMMARY | 2024-08-17 08:52 | XMS_ITS | Encounter Summary ---
Author Organization [employer] In [employer] Address [address] [place] [address] Care Team Providers Care Film Or Tape Librarian Name Role Phone Provider, Not In System Primary Care Provider Un available Encounter Details Date Type Department Care Team (Late st Contact Info) Description 06/23/2021 Transcribed Document [facility] [place] [facility] [place] [address] ProviderAilyn MD [address] [place] [address] Social History Tobacco Use Types [...] Instructions From Your Care Team Discharge Activity: Discharge Activity: Activity as tolerated Diet: Discharge Diet: Resume usual diet as tolerated Driving Restriction: No driving until 24 hours after taking pain medication Follow-Up Appointments Follow Up with ANDREA BAILEY MD-URO When 07/06/2021 01:30 PM EDT Comments URO appt made, Bring discharge instructions with you Where: [address] [id number]- Follow Up with Primary care offices in [place] When Within 2 to 3 days Comments [facility]- [phone] [facility] [place] (Private Practice)- [phone] [facility]- [phone] [facility]- [phone] [facility]- [phone] If you need more help please call meAlycia- [phone] Medications What How Much When Instructions Next Dose levoFLOXacin (Levaquin 500 mg oral tablet) 1 Tablet(s) Oral Interval Every 24 Hours Duration: 5 Day(s) Pickup at [facility] ondansetron (Zofran ODT 4 mg oral tablet, disintegrating) See instructions Tab mg Oral TID allow tablet to dissolve under tongue Pickup at [facility] oxyCODONE (oxyCODONE 5 mg oral tablet) 1 Tablet(s) Oral Every 6 Hours as needed for Pain (Severe 7-10) Duration: 3 Day(s) Pickup at [facility] ascorbic acid (Vitamin C 500 mg oral tablet) 1 Tablet(s) Oral Every Day multivitamin (Multiple Vitamins oral tablet) 1 Tablet(s) Oral Every Day Pharmacy Information [facility] [place]: [address] [address] [place], [place] [id number] [phone] Take your medications faithfully. Do NOT skip [...] these instructions at home: Medicines ??? Take pgdw-tvw-vcuwugr and prescription medicines only as told by [...] provider. Document Revised: 09/30/2020 Document Reviewed: 09/30/2020 [employer] Patient Education ?? 2020 [employer] Ureteral Stent Implantation, Care After This [...] these instructions at home: Medicines ??? Take kwrj-huy-rptgard and prescription medicines only as told by [...] blood in your urine increases. ??? Take sjgn-kjc-alvbyoa and prescription medicines only as told by your health care provider. ??? Drink enough fluid to keep your urine pale yellow. This information is not intended to replace advice given to you by your health care provider. Make sure you discuss any questions you have with your health care provider. Document Revised: 11/25/2018 Document Reviewed: 11/26/2018 [employer] Patient Education ?? 2020 [employer]. Kidney Stones Kidney stones are rock-like masses [...] these instructions at home: Medicines ??? Take zxdp-byf-jnzglgf and prescription medicines only as told by [...] provider. Document Revised: 07/07/2019 Document Reviewed: 07/07/2019 [employer] Patient Education ?? 2020 [employer]. Dietary Guidelines to Help Prevent Kidney Stones [...] ? 8 oz (237 mL) of milk, jvuipbh-siuklnrgqvps-smpen milk, and calcium-fortifiedfruit juice. Calcium-fortified means that [...] Spinach (cooked), rhubarb, beets, sweet potatoes, and Ivorian chard. ? Peanuts. ? Potato chips, burundian fries, and baked potatoes with skin on. ? Nuts and nut products. ? Chocolate. ??? If you regularly take a diuretic medicine, make sure to eat at least 1 or 2 servings of fruits or vegetables that are high in potassium each day. These include: ? Avocado. ? Banana. ? Troup, prune, carrot, or tomato juice. ? Baked [...] fish oil, or vitamin B6. ??? Take iyts-juc-zzuwswm and prescription medicines only as told by [...] Casseroles. Pizza. Lasagna. Frozen meals. Potato chips. Croatian fries. The items listed above may not [...] provider. Document Revised: 02/11/2020 Document Reviewed: 02/11/2020 [employer] Patient Education ?? 2020 [employer] ondansetron (oral) (on OTTO se aime) James [...] may report side effects to FDA at 0-328-RJL-7587. What other drugs will affect ondansetron? Ondansetron [...] interact with ondansetron. This includes prescription and zqgt-uvo-rsytaby medicines, vitamins, and herbal products. Give a [...] to ensure that the information provided by [employer]. ('[employer]') is accurate, up-to-date, and complete, but no guarantee is made to that effect. Drug information contained herein may be time sensitive. [employer] information has been compiled for use by healthcare practitioners and consumers in the [place] and therefore [employer] does not warrant that uses outside of the [place] are appropriate, unless specifically indicated otherwise. [employer]'s drug information does not endorse drugs, diagnose patients or recommend therapy. [employer] drug information is an informational resource designed [...] effective or appropriate for any given patient. [facility] does not assume any responsibility for any aspect of healthcare administered with the aid of information [facility] provides. The information contained herein is not intended to cover all possible uses, directions, precautions, warnings, drug interactions, allergic reactions, or adverse effects. If you have questions about the drugs you are taking, check with your doctor, nurse or pharmacist. Copyright 2164-5416 [facility]. Version: 13.. Revision Date: 12/23/2015. levofloxacin (oral) (SOPHY Franco [...] What is levofloxacin? Levofloxacin is a fluoroquinolone (lysr-a-YISW-o-lone) antibiotic that fights bacteria in the body. [...] may report side effects to FDA at 4-195-INA-6456. What other drugs will affect levofloxacin? Some [...] drugs may affect levofloxacin, including prescription and hgky-fmx-yuvmaeq medicines, vitamins, and herbal products. Not all [...] to ensure that the information provided by [employer]. ('[employer]') is accurate, up-to-date, and complete, but no guarantee is made to that effect. Drug information contained herein may be time sensitive. [employer] information has been compiled for use by healthcare practitioners and consumers in the [place] and therefore [employer] does not warrant that uses outside of the [place] are appropriate, unless specifically indicated otherwise. [employer]'s drug information does not endorse drugs, diagnose patients or recommend therapy. [employer] drug information is an informational resource designed [...] effective or appropriate for any given patient. [employer] does not assume any responsibility for any aspect of healthcare administered with the aid of information [employer] provides. The information contained herein is not intended to cover all possible uses, directions, precautions, warnings, drug interactions, allergic reactions, or adverse effects. If you have questions about the drugs you are taking, check with your doctor, nurse or pharmacist. Copyright 5244-0011 [employer]. Version: 14.. Revision Date: 03/10/2018. oxycodone (ox i KOE [...] The extended-release form of oxycodone is for eeyumq-bvw-lwcos treatment of pain and should not be [...] against the law. Stop taking all other pispmy-tkq-qfzlm opioid pain medicines when you start taking [...] may report side effects to FDA at 1-477-CYX-5772. What other drugs will affect oxycodone? You [...] may affect oxycodone. This includes prescription and irwz-vmr-nxyvmgt medicines, vitamins, and herbal products. Not all [...] to ensure that the information provided by [employer]. ('[employer]') is accurate, up-to-date, and complete, but no guarantee is made to that effect. Drug information contained herein may be time sensitive. [employer] information has been compiled for use by healthcare practitioners and consumers in the [place] and therefore [employer] does not warrant that uses outside of the [place] are appropriate, unless specifically indicated otherwise. [employer]'s drug information does not endorse drugs, diagnose patients or recommend therapy. [employer] drug information is an informational resource designed [...] effective or appropriate for any given patient. [employer] does not assume any responsibility for any aspect of healthcare administered with the aid of information [employer] provides. The information contained herein is not intended to cover all possible uses, directions, precautions, warnings, drug interactions, allergic reactions, or adverse effects. If you have questions about the drugs you are taking, check with your doctor, nurse or pharmacist. Copyright 6240-3911 [employer]. Version: 14.02. Revision Date: 03/31/2020. Emergency Awareness [...] Assistance with quitting is available by contacting 5-075-RSNE-NOW. This is a free resource providing counseling, support, and referral. Or you may contact your personal physician. [employer] Suicide Prevention Lifeline: The National Suicide Prevention [...] range between ( 0.0 and 7.0 ) Brooks #: 0.68 K/uL -- Normal range between ( 0.16 and 1.00 ) Eos #: 0.20 x10(3)/uL -- Normal range between ( 0.00 and 0.80 ) Brooks %: 8.8 % -- Normal range between [...] : >60 mL/min/1.73m2 eGFR NonAfrican: >60 mL/min/1.73m2 Electronically signed by [facility] Conversion Voltage Tester Cerner at 06/17/2022 9:55 AM CDT documented in this encounter Plan of Treatment Not on file documented as of this encounter Visit Diagnoses Not on filedocumented in this encounter Care Teams Film Or Tape Librarian Relationship Specialty Start Date End Date Provider, Not In System [place] PCP - General 01/05/23 documented as of this encounter
--- OUTSIDE RECORDS SUMMARY | 2024-08-17 08:52 | XMS_ITS | Encounter Summary ---
Author Organization [employer] Address [address] [place] [address] Care Team Providers Care Consulting Property Manager Name Role Phone Provider, Not In System Primary Care Provider Un available Encounter Details Date Type Department Care Team (Late st Contact Info) Description 06/23/2021 Transcribed Document [facility] [place] [facility] [place] [address] ProviderAilyn MD [address] [place] [id number] Social History Tobacco Use Types Packs/Day Years [...] Conversion Note - Ailyn ProviderMD - 06/23/2021 12:44 PM CDT Stroke/Warfarin Instructions Entered On: 06/23/2021 12:44 EDT Performed On: 06/23/2021 12:44 EDT by Neelima Adams RN Stroke/Warfarin Instructions Stroke/TIA Discharge Ins : N/A Warfarin Discharge Ins : N/A Neelima Adams RN - 06/23/2021 12:44 EDT documented in this encounter Plan of Treatment Not on file documented as of this encounter Visit Diagnoses Not on filedocumented in this encounter Care Teams Consulting Property Manager Relationship Specialty Start Date End Date Provider, Not In System [place] PCP - General 01/05/23 documented as of this encounter
[2024-08-17 10:36] LABS: Free T4 (Free Thyroxine) 1.06 ng/dl (0.78-2.19)
[2024-08-17 10:37] LABS: Triiodothryronine (T3) Uptake 36 % (23.5-40.5)
[2024-08-17 10:38] LABS: Free Thyroxine Index 2.4 ug/dL (5.93-13.13); T4 (Thyroxine) 6.7 ug/dl (5.53-11.0)
[2024-08-17 10:51] LABS: Thyroid Stimulating Hormone 1.33 uIU/mL (0.465-4.68)
[2024-08-18 03:47] LABS: Thyroid Peroxidase Antibodies <9 IU/mL (0-34); Triiodothyronine (T3) Total 81 ng/dL (71-180)
[2024-08-18 15:11] LABS: Cortisol,AM 16.2 ug/dL (6.2-19.4)
== END 2024-08-17 23:59 | disposition home or self-care (01) ==
LOC: LAB 08:47
PROVIDERS: PCP Emergency Medicine
DX: R53.83 Other fatigue (principal)
CPT/HCPCS: 36415; 82533; 84436; 84439; 84443; 84479; 84480; 86376